=== PATIENT | male | born 1970 | race Caucasian/White ===

== ENCOUNTER 2018-11-03 15:03 | Inpatient (IN) ==
--- NOTE | 2018-11-03 16:02 | ED EKG INTERP ---
This chart was entered by Adrianne Scott Scribe, acting as scribe for Rena Romano MD. EKG Interpretation - EKG Time of EKG reading by physician:: 15:52 EKG Read and Signed by:: Rena Romano EKG Interpretation (*Must complete 3 of following elements*): Normal Rate: 71 Rhythm: nsr [place]: normal QRS: normal [place] Interval: normal ST Wave: normal Attestation - Physician/ JORDAN Attestation Patient care was provided by Advanced Practice Provider:: No The physician spent face to face time with patient:: Yes Advanced Practice Provider documentation review:: Supervising physician onsite and consulted in the evaluation and care of this patient. The physician did have a face to face encounter with the patient. This chart was documented by the indicated scribe, (Adrianne Scott Scribe) and accurately reflects the services I performed and decisions made by me, Rena Romano MD, as attested by the provider's signature.
[2018-11-03] MEDS ORDERED: NS 1,000 ML IV ONE (16:06)
[2018-11-03 16:37] LABS: BASO# 0.01 X1000 (0.0-0.2); HEMATOCRIT 29.2 % (42.0-52.0); HEMOGLOBIN 9.6 g/dL (14.0-18.0); IMM GRAN# 0.15 X1000 (0.0-0.04); IMM GRAN% 0.6 % (0.0-0.5); LYMPH# 0.75 X1000 (1.2-3.4); LYMPH% 2.9 % (20.5-51.1); MCH 28.7 PG (27-31); MCHC 32.9 g/dL (33-37); MCV 87.4 FL (81-99); MONO# 1.86 X1000 (0.11-0.59); MONO% 7.2 % (1.7-9.3); MPV 11.6 FL (7.4-10.4); NEUT# 23.06 X1000 (1.4-6.5); NEUT% 89.3 % (42.2-75.2); PLT 186 X1000 (130-400); RBC 3.34 XMIL (4.7-6.1); RDW 14.2 % (11.5-14.5); WBC 25.83 X1000 (4.8-10.8)
[2018-11-03 16:54] LABS: ALB/GLOB RATIO 0.9; ALBUMIN 2.9 g/dL (3.5-5.0); CALCIUM 8.1 mg/dL (8.8-10.2); CREATININE 6.5 mg/dL (0.7-1.2); POTASSIUM 4.1 mmol/L (3.5-5.1); TOTAL BILIRUBIN 0.39 mg/dL (0.20-1.00)
[2018-11-03] MEDS ORDERED: D50W SYRINGE IV PRN (17:07)
--- NOTE | 2018-11-03 17:09 | Diag Imaging Result Doc PS360 ---
EXAM: US SCROTUM HISTORY: testicular swelling and pain TECHNIQUE: Scrotal ultrasound COMPARISON: None. FINDINGS: There is marked scrotal skin thickening. Normal size and echotexture to each testicle. No testicular mass. There is symmetric blood flow. Neither epididymis is enlarged. There are tiny bilateral epididymal cysts. No large hydroceles. IMPRESSION: Prominent scrotal skin thickening. Tiny epididymal cysts. Electronically signed by Karl Baer 11/03/2018 5:07 PM
[2018-11-03] MEDS ORDERED: ROCEPHIN 1 GM in NS 50 ML IV SCH (17:30)
--- NOTE | 2018-11-03 17:56 | PROVIDER DOCUMENTATION ---
This chart was entered by Adrianne Scott Scribe, acting as scribe for Lion Tai MD. HPI-Abdominal Pain/GI Problem - General Chief Complaint: B/P Problems Stated Complaint: REFERRED BY DR. GARDNER Time Seen by Provider: 11/03/18 15:41 Source: patient, other (dr gardner) Allergies/Adverse Reactions: Patient Allergies Allergy/AdvReac Type Severity Reaction Status Date / Time No Known Allergies Allergy Verified 09/14/16 21:59 Home Medications: Home Medication List Medication Instructions Recorded Confirmed Last Taken Type Carvedilol [Coreg] 12.5 mg PO Q12HR #60 tablet 09/21/16 12/29/17 12/28/17 07:00 Rx Insulin Glargine [Lantus] 22 unit SUBQ QAM #0 insuln.pen 11/05/16 12/29/17 2 Weeks Ago Rx ~12/15/17 Levothyroxine [Synthroid] 50 microgm PO DAILY@0700 #30 tablet 11/05/16 12/29/17 12/28/17 07:00 Rx Losartan [Cozaar] 100 mg PO DAILY #0 tablet 11/05/16 12/29/17 12/28/17 07:00 Rx Sitagliptin [Januvia] 50 mg PO DAILY #30 tablet 11/05/16 12/29/17 12/28/17 07: 00 Rx Furosemide [Lasix] 80 mg PO DAILY #60 tablet 11/06/16 12/29/17 12/28/17 07:00 Rx - History of Present Illness-ABD Nature of Presenting Problems: 48 yom presents to the ed per dr gardner request to be admitted. pt has had low BP 96/39 and c/o dizziness, swollen testicles, n/v/d with abdominal cramping for last 4 days Abdominal Pain Onset Location: reports: suprapubic Pain Radiation: reports: no radiation Quality of Pain: reports: aching, cramping Severity in ED: reports: moderate Onset/Duration: reports: 4 days ago Timing: reports: still present, intermittent Activities at Onset: reports: light activity Exposure to sick contacts?: No Modifying Factors: improves with: nothing. worse with: palpation Associated Symptoms: reports: diarrhea, dizziness, fever/chills (99.2), nausea, vomiting. denies: back/neck pain, chest pain, shortness of breath Dark Stools Present?: reports: none noticed Rectal Bleeding: reports: none # of Diarrhea Episodes: 3 Rectal Pain: reports: none # of Vomiting Episodes: 5 Emesis Description: reports: other (food yellow) Bruising or Bleeding Gums?: No Similar Symptoms Previously?: Yes Recently seen or treated by another doctor?: Yes (dr gardner) Review of Systems - Adult - REVIEW OF SYSTEMS - ADULT Constitutional: reports: chills, fever (99.2) Eyes: reports: no symptoms reported Ears, Nose, Mouth & Throat: reports: no symptoms reported Cardiovascular: denies: chest pain, palpitations Respiratory: denies: cough, shortness of breath, wheezing Gastrointestinal: reports: see HPI, abdominal pain, diarrhea, nausea, poor appetite, vomiting Genitourinary: reports: no symptoms reported Musculoskeletal: denies: back pain, neck pain Integumentary: reports: no symptoms reported Neurological: reports: dizziness/vertigo. denies: ataxia, headache/migraines, loss of balance, numbness, paresthesia, seizure, slurred speech Psychiatric: reports: no symptoms reported Endocrine: reports: no symptoms reported Hematologic/Lymphatic: reports: no symptoms reported Allergic/Immunologic: reports: no symptoms reported All Other Systems: Reviewed and Negative Past History - Adult - PAST MEDICAL HISTORY-ADULT Review of Records: reports: Old Records Reviewed, Nursing Assessment Review, Medications Reviewed, Social history reviewed & non-contributory. Major Childhood Illnesses: reports: denies history Cardiovascular: reports: HTN, hyperlipidemia Respiratory: reports: sleep apnea Gastrointestinal: reports: GERD Obstetrical/Gynecological: reports: denies history Genitourinary: reports: kidney disease Musculoskeletal: reports: denies history Neurological: reports: denies history Endocrine/Immune: reports: Diabetes, thyroid disorder Diabetes Type: Type 2 Other Conditions: reports: denies history - PRIOR SURGERIES/PROCEDURES Surgical/Procedure History: reports: reviewed, not pertinent - IMMUNIZATION STATUS Childhood Immunizations: See Nurse Assessment Flu Vaccine: See Nurse Assessment - FAMILY HISTORY Family History: reviewed, not pertinent - SOCIAL HISTORY Smoking: denies Substance Use: denies Living Situation: family Physical Exam-General - PHYSICAL EXAM-ADULT Initial Vital Signs Reviewed: Yes - CONSTITUTIONAL General Appearance: appears well, alert, mild distress, obese - EYES Eyes: PERRL/EOMI, pink conjunctivae - HEAD, EARS, NOSE, MOUTH & THROAT HENMT: normocephalic/atraumatic, moist mucous membranes, normal ENT inspection - NECK Neck: non-tender, full range of motion, supple, normal inspection - RESPIRATORY Respiratory: chest non-tender, lungs clear, normal breath sounds - CARDIOVASCULAR Cardiovascular: normal peripheral pulses, regular rate, rhythm - CHEST (BREASTS) Chest/Breast: deferred - GASTROINTESTINAL (ABDOMEN) Abdominal Exam: normal bowel sounds, soft, tenderness (suprapubic) - GENITOURINARY Male Genitalia: scrotal swelling, testicular tenderness Rectal Exam: deferred Hemoccult Exam: deferred - LYMPHATIC Lymphatic: no adenopathy - MUSCULOSKELETAL Back Exam: normal inspection, no CVA tenderness, no vertebral tenderness Extremity: normal range of motion, no pedal edema, no calf tenderness, normal capillary refill, pelvis stable - SKIN Integumentary: normal color, normal turgor, warm/dry - NEUROLOGIC Neurologic: grossly normal, no motor/sensory deficits - PSYCHIATRIC Psych/Mental Status: normal mood/affect, normal thought content, normal thought process, oriented x 3 Progress - PLAN OF CARE/RESULTS Progress/Plan/Lab Results: Vital Signs - 8 hr 11/03/18 15:09 Temperature 99.2 F Pulse Rate 70 Respiratory Rate 18 Blood Pressure 96/39 O2 Sat by Pulse Oximetry 97 Orders Category Date Time Status US SCROTUM [US] Stat Exams 11/03/18 16:06 Ordered CBC WITH ELECTRONIC DIFF [HEME] Stat Lab 11/03/18 16:14 Ordered COMPREHENSIVE METABOLIC PANEL [CHEM] Stat Lab 11/03/18 16:14 Ordered URINALYSIS W/POSS RFLX CULT [URINALYSIS] Stat Lab 11/03/18 16:06 Uncollected 0.9% Sodium Chloride Inj [Ns] 1,000 ml Med 11/03/18 16:06 Active IV 999 mls/hr Result Diagrams: 11/03/18 15:45 11/03/18 15:45 - REASSESSMENT Reassessment #1 Time Reassessed: 17:27 ( at bedside) Status: unchanged - ULTRASOUND (By Radiology) 1 US Study: Scrotum (EXAM: US SCROTUM HISTORY: testicular swelling and pain TECHNIQUE: Scrotal ultrasound COMPARISON: None. FINDINGS: There is marked scrotal skin thickening. Normal size and echotexture to each testicle. No testicular mass. There is symmetric blood flow. Neither epididymis is enlarged. There are tiny bilateral epididymal cysts. No large hydroceles. IMPRESSION: Prominent scrotal skin thickening. Tiny epididymal cysts. Electronically signed by Karl Baer 11/03/2018 5:07 PM 11/03/181706 Interpreting Physician: Karl Baer MD Dictated Date/Time: 11/03/181705 cc: Lion Tai MD; Hubert Gardner MD) - CONSULTS/PCP/HOSPITALIST Notification #1 *Consult/PCP/Hospitalist*: Dr Gunn Time Discussed: 16:00 Consult Disposition: Admit Departure - Departure Date of Disposition Decision: 11/03/18 Time of Disposition Decision: 17:55 DIAGNOSIS: Nausea & vomiting Disposition: ADMITTED INPATIENT 09 Certified Medical Emergency: Emergent Condition: Good Additional Freetext Instructions: ED Follow Up Instructions: You have been treated by a care provider in the Emergency Department. These instructions are being provided to you so you can have an understanding of how to care for yourself upon discharge. Upon discharge from the Emergency Department, you are responsible for making arrangements for follow-up care by a physician of your choice. Take all prescribed medications as directed. Return to the Emergency Department immediately for any new or worsening symptoms. You may call the Physician Referral phone number at [phone] to obtain a list of Physicians who are taking new patients. Referrals and Follow-Ups: Hubert Gardner MD [Primary Care Provider] - - Critical Care Note This patient required my direct & personal management of CC.: No Attestation - Physician/ JORDAN Attestation Patient care was provided by Advanced Practice Provider:: No The physician spent face to face time with patient:: Yes Advanced Practice Provider documentation review:: Supervising physician onsite and consulted in the evaluation and care of this patient. The physician did have a face to face encounter with the patient. This chart was documented by the indicated scribe, (Adrianne Scott Scribe) and accurately reflects the services I performed and decisions made by me, Lion Tai MD, as attested by the provider's signature.
--- NOTE | 2018-11-03 18:09 | Diag Imaging Result Doc PS360 ---
EXAM: ABDOMEN FLAT/UPRIGHT HISTORY: diarrhea TECHNIQUE: Abdomen two views COMPARISON: 10/31/2016 FINDINGS: Large body habitus. No bowel obstruction. No organomegaly. No abnormal abdominal calcifications. There are degenerative spine changes. IMPRESSION: No acute abnormality. Electronically signed by Karl Baer 11/03/2018 6:06 PM
[2018-11-03 18:17] LABS: INR 1.33; PROTIME 17.5 Seconds (11.0-16.0)
[2018-11-03 18:18] LABS: PTT 33.4 Seconds (22.3-41.8)
[2018-11-03 18:36] LABS: AMYLASE 19 U/L (20-200); LIPASE 25 U/L (13-60)
--- NOTE | 2018-11-03 18:54 | Diag Imaging Result Doc PS360 ---
EXAM: CT ABDOMEN/PELVIS W/O CONTRAST HISTORY: diarrhea TECHNIQUE: CT abdomen and pelvis without contrast COMPARISON: 10/31/2016 FINDINGS: The liver is prominent and there is fatty infiltration. No calcified gallstones or adjacent inflammation. Normal spleen, pancreas, and adrenal glands. No renal stones. No hydronephrosis. No aortic aneurysm. Mildly prominent para-aortic pericaval nodes. Normal appendix. No abscess. No bowel obstruction. The urinary bladder is moderately distended and is normal. The prostate is not enlarged. There are bilateral pars defects to the L5 vertebra with subluxation of L5 on S1. IMPRESSION: 1. Liver prominent with fatty infiltration 2. Mildly prominent para-aortic and pericaval lymph nodes This exam was performed using automated exposure control, adjustment of mA or kV according to patient size, and/or use of iterative reconstruction technique. Electronically signed by Karl Baer 11/03/2018 6:52 PM
[2018-11-03 19:23] LABS: URINE SOURCE CATH
[2018-11-03 19:26] LABS: BILIRUBIN URINE NEGATIVE (NEGATIVE); BLOOD URINE TRACE (NEGATIVE); COLOR YELLOW; GLUCOSE URINE TRACE mg/dL (NEGATIVE); KETONE URINE NEGATIVE (NEGATIVE); LEUKOCYTES URINE NEGATIVE (NEGATIVE); NITRITE URINE NEGATIVE (NEGATIVE); PH URINE 5.5; PROTEIN URINE 300 mg/dL (NEGATIVE); SP GRAVITY URINE 1.017; TURBIDITY URINE TURBID (CLEAR); UROBILINOGEN URINE NORMAL (NORMAL)
[2018-11-03 19:27] LABS: UR EPITHELIAL CELLS <10 /HPF (<10); URINE BACTERIA NEGATIVE /HPF; URINE RBC <10 /HPF (<10); URINE WBC <10 /HPF (<10)
[2018-11-03] MEDS: NS 1,000 ML IV SCH (19:44)
[2018-11-03] MEDS: PROTONIX IV SCH (19:45)
[2018-11-03] MEDS: SODIUM CHLORIDE 0.9% INJ SCH (19:45)
[2018-11-03] MEDS: ZOSYN 2.25 GM in NS 50 ML IV SCH (19:45)
[2018-11-03] MEDS: FLAGYL 500 MG/NS 500 MG/100 ML IVPB IV SCH (19:45)
[2018-11-03] MEDS: COREG PO SCH (20:00)
--- NOTE | 2018-11-03 20:31 | HISTORY AND PHYSICAL ---
A 48-year-old white gentleman with multiple medical problems in the form of longstanding hypertension poorly controlled, diabetes mellitus, morbid obesity, sleep apnea, chronic kidney disease. The patient was not doing well since Friday complaining of pain in the lower abdomen, scrotal area. The patient also had diarrhea multiple times, stool was watery, occasional blood. Patient was also complaining of some nausea. He vomited twice today. Did have fever and some chills. Oral intake was poor. The patient came to office for evaluation. The patient was acutely ill when I saw him. His blood pressure was low normal. I decided to admit the patient for further care. As patient being acutely ill I sent him to ER for stabilization. The patient denied any dysuria. No gross hematuria. Complaining of pain in the perineum and scrotal area. Vague abdominal pain. No typical chest pain, palpitation, orthopnea or PND. Urine output was low. No unusual cough, expectoration or hemoptysis. No runny nose, stuffy nose, sinus drainage. Denied any heat or cold intolerance. Minimal swelling in the legs. No further history available at this time. ALLERGIES: No known drug allergy. HOME MEDICATIONS: Includes patient is on Coreg, Norvasc, Cozaar. I do not have updated list of his home medications. The patient is on insulin. PAST MEDICAL HISTORY: Longstanding hypertension, NIDDM, chronic kidney disease, morbid obesity, sleep apnea, osteoarthritis, hyperlipidemia, gastritis and reflux disease. PERSONAL HISTORY: Single. Used to smoke quit recently, denied alcohol or substance abuse. The patient does work in the school system. FAMILY HISTORY: Significant for father recently with esophageal cancer. Otherwise noncontributory. PHYSICAL EXAMINATION: GENERAL: Middle-aged white gentleman in mild distress. VITAL SIGNS: Blood pressure initial 1 was 96/39, pulse 70, temperature 99.2 degrees, respiration 18. SKIN: Normal turgor. HEENT: Head atraumatic, normocephalic. [place] conjunctivae. Anicteric sclerae. Extraocular muscle movement normal. Fundus cannot be penetrated. Good oral hygiene. Dry oral mucosa. No tonsillopharyngeal congestion or exudate. Ears and nose benign. NECK: Supple. No JVD, thyromegaly or lymphadenopathy. CHEST: Bilateral good air entry present. No rales or rhonchi. CARDIOVASCULAR: S1 and S2 heard, 2/6 systolic murmur at the apex. ABDOMEN: Soft, globular. Bowel sounds present. EXTREMITIES: No cyanosis, clubbing. Minimal swelling in the legs. Patient does have tenderness on the scrotum, some blackening at their scrotal skin. MAXILLOFACIAL PATHOLOGY: Alert, awake, answering questions fairly well. DATA: Abdominal x-ray no acute abnormality. Scrotal ultrasound, prominent skin thickening, tiny epididymal cyst. I did CT scan of the abdomen and pelvis without contrast. Official result is pending. LAB DATA: Revealed leukocytosis with left shift. PT/INR 1.33, PTT 33.4, sodium 133, BUN 140, creatinine 6.5. CONSIDERATION: 1. Patient admitted with gastroenteritis and leukocytosis. Patient does have evidence of infection at the scrotum. I was concerned about Yuriy gangrene. I am going to do urology consult. Discussed with Dr. Valentine. CT scan result is pending. 2. Acute on chronic kidney disease. 3. Gastritis and reflux disease. 4. Morbid obesity. 5. Diabetes mellitus. PLAN: Admit patient, gentle hydration, broad-spectrum antibiotics, monitor for hypoglycemia. Overall plan discussed with the patient and he is in agreement. cc: Hubert Swartz MD
[2018-11-03] MEDS: HUMALOG SUBQ SCH (23:01)
[2018-11-03] MEDS: TYLENOL PO PRN (23:01)
[2018-11-04 01:03] LABS: ALB/GLOB RATIO 1.3; ALBUMIN 2.8 g/dL (3.5-5.0); CALCIUM 7.3 mg/dL (8.8-10.2); CREATININE 6.9 mg/dL (0.7-1.2); POTASSIUM 3.8 mmol/L (3.5-5.1); TOTAL BILIRUBIN 0.34 mg/dL (0.20-1.00); TOTAL PROTEIN 4.9 g/dL (6.3-8.3)
[2018-11-04] MEDS ORDERED: CALMOSEPTINE OINTMENT TOP PRN (01:23)
[2018-11-04 01:33] LABS: CK INDEX 0.9 (0.0-2.5); CK-MB 3.18 ng/mL (0.0-5.0)
--- NOTE | 2018-11-04 03:23 | CONSULTATION ---
DATE OF CONSULTATION: 11/03/2018 ATTENDING AND REFERRING PHYSICIAN: Dr. Swartz. HISTORY OF PRESENT ILLNESS: This 48-year-old male states he started having scrotal and perineal area pain several days ago. He states it became worse today. He was seen by his family physician and sent to the emergency room for further evaluation. The patient states he may have had some fevers. He denies any voiding problems. He has no history of hematuria or kidney stones. He does have severe renal insufficiency secondary to diabetes. 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 The patient's creatinine is 6. A scrotal ultrasound revealed thickened scrotal skin but no abscess areas. A CT scan of the abdomen and pelvis looks like there is abscess area or gas in the right buttocks that tracks along the perineum to the posterior scrotum. PAST MEDICAL HISTORY: Diabetes type 2 (very poorly-controlled), hypertension, hypothyroidism, nephrotic syndrome. PAST SURGICAL HISTORY: Percutaneous renal biopsy, bronchoscopy with lung biopsy , tonsillectomy, possible wisdom teeth extraction. CURRENT MEDICATIONS: Documented on the chart and will include clindamycin and Zosyn. SOCIAL HISTORY: He dips snuff. He denies alcohol use. ALLERGIES: No known drug allergies. REVIEW OF SYSTEMS: He states usually he is in good health. He denies any problems with heart disease, strokes, or seizures. He has no voiding problems. PHYSICAL EXAMINATION: General: An obese, age apparent, normally developed, white male, who is cooperative. HEENT: Normal for age. Lungs: Clear. Cardiovascular: Regular rate and rhythm with grade 2-3/6 holosystolic murmur. Abdomen: Obese, soft, nontender. No hepatosplenomegaly or masses. Normal bowel sounds. : Uncircumcised male with penile and scrotal edema. There are no palpable abscesses but he is tender. The perineal area is tender as well, as well as the right buttock area. The left side is tender also. Extremities: There is +1 pitting edema. Neurologic: No focal deficits. LABORATORY EVALUATION: He has a white count of 25.8, hemoglobin of 9.6, hematocrit of 29.2. Serum electrolytes: He has a sodium of 133, a potassium of 4.1, chloride 93, bicarb 17, BUN 140, creatinine 6.5. Renal ultrasound and CT scan are as noted in the HPI. IMPRESSION: 1. Probable right buttock and perineal abscess that extends to the scrotum. 2. Multiple medical problems. RECOMMENDATIONS: 1. IV antibiotics of Zosyn and clindamycin. 2. Will keep NPO after midnight. 3. Will ask a general surgeon about the perianal area. 4. Will need incision,drainage and debridement of the abscess. cc: MD Hubert Lawrence MD MTDD
[2018-11-04] MEDS: ZOSYN 2.25 GM in NS 50 ML IV SCH ×4 (04:06→22:28)
[2018-11-04] MEDS: FLAGYL 500 MG/NS 500 MG/100 ML IVPB IV SCH (04:06)
[2018-11-04] MEDS: NS 1,000 ML IV SCH ×2 (04:08→06:00)
[2018-11-04 05:28] LABS: BASO# 0.01 X1000 (0.0-0.2); HEMATOCRIT 26.4 % (42.0-52.0); HEMOGLOBIN 8.5 g/dL (14.0-18.0); IMM GRAN# 0.13 X1000 (0.0-0.04); IMM GRAN% 0.5 % (0.0-0.5); LYMPH# 0.77 X1000 (1.2-3.4); LYMPH% 3.1 % (20.5-51.1); MCH 28.5 PG (27-31); MCHC 32.2 g/dL (33-37); MCV 88.6 FL (81-99); MONO# 2.47 X1000 (0.11-0.59); MONO% 9.9 % (1.7-9.3); MPV 11.4 FL (7.4-10.4); NEUT# 21.65 X1000 (1.4-6.5); NEUT% 86.5 % (42.2-75.2); PLT 174 X1000 (130-400); RBC 2.98 XMIL (4.7-6.1); RDW 14.5 % (11.5-14.5); WBC 25.03 X1000 (4.8-10.8)
[2018-11-04] MEDS: HUMALOG SUBQ SCH ×4 (06:00→21:26)
[2018-11-04] MEDS ORDERED: CLINDAMYCIN 600 MG/D5W 600 MG/50 ML IVPB IV SCH (06:30)
--- NOTE | 2018-11-04 06:48 | PROGRESS NOTE ---
DATE: 11/04/2018 SUBJECTIVE: A 48-year-old, white gentleman admitted with nausea, vomiting, and diarrhea. The patient was found to have infection in the perineum and also the scrotum. The patient is doing fairly well. The patient had low-grade fever. Blood pressure is low normal. He denied any chest pain. The patient is on IV fluid. Patient had leukocytosis. No more vomiting. Denied any diarrhea since admission. No typical chest pain or unusual cough or expectoration. No major hypoglycemic episode. OBJECTIVE: Vital Signs: His vital signs noted. Neck: Supple. No JVD. Lungs: Bibasilar crepitations. Heart: S1 and S2 heard. A 2-3/6 systolic murmur at the apex. Abdomen: Soft, globular. Bowel sounds present. Extremities: No cyanosis, clubbing. Minimal swelling. No acute DVT. STATIONARY ENGINEER APPRENTICE: Alert, awake. Able to move all 4 limbs. Laboratory Data: Done today, leukocytosis with a left shift. Lactate was 0.6. ASSESSMENT: Patient's problems include: 1. Perineal and scrotal infection. 2. Chronic kidney disease. 3. Hypertension but blood pressure is low-normal. 4. Insulin-dependent diabetes mellitus. PLAN: The patient's electrolytes are pending. Discussed patient's condition and plan with Dr. Valentine yesterday and Dr. Watson today. I am going to do stop Flagyl, start the patient on clindamycin. We will continue Zosyn. cc: Hubert Swartz MD
[2018-11-04 06:57] LABS: ALB/GLOB RATIO 0.8; ALBUMIN 2.5 g/dL (3.5-5.0); CALCIUM 7.6 mg/dL (8.8-10.2); CREATININE 6.9 mg/dL (0.7-1.2); POTASSIUM 4.1 mmol/L (3.5-5.1); TOTAL BILIRUBIN 0.33 mg/dL (0.20-1.00); TOTAL PROTEIN 5.6 g/dL (6.3-8.3)
[2018-11-04] MEDS: CLINDAMYCIN 600 MG/D5W 600 MG/50 ML IVPB IV SCH ×3 (07:14→22:29)
[2018-11-04 07:16] LABS: BANDS 6 % (0-1); LYMPHS 2 % (21-51); SEGS 92 % (42-75)
--- NOTE | 2018-11-04 07:16 | INFECTIOUS DISEASE CONSULT REP ---
DATE: 11/04/2018 CONCLUSION: The patient has Yuriy's gangrene of the scrotum. The infection may also involve the perineum. RECOMMENDATIONS: I agree with treating the patient with Zosyn. I have increased the dose to 2.25 g IV every 6 hours. I suggest adding clindamycin and daptomycin as well. The patient is scheduled to have surgery today, which I totally agree with. DISCUSSION: The patient tells me that for the past 3 days, he has had vomiting and diarrhea, fever, and chills. He also has dysuria and his scrotum has become very painful. He had difficulty passing his urine and a Sanchez catheter has been placed. Laboratory tests thus far show a CBC with a white count of 25,030, hemoglobin 8.5, and platelet count 174,000. Creatinine is 6.9. GFR is 9. Liver function studies are normal. Urinalysis showed no white cells or bacteria. A CT scan of the abdomen and pelvis showed a fatty liver and prominent periaortic and pericaval lymph nodes. A chest x-ray was taken this morning. I looked at it and I did not see any pneumonia but the radiologist has not officially read the x-ray. PAST MEDICAL HISTORY/REVIEW OF SYSTEMS: Eyes and Ears: The patient does not have any trouble hearing or seeing. Neck: No stiffness. Respiratory: No cough or shortness of breath. GI: See present illness. Genitourinary: See present illness. Endocrine: The patient is diabetic and he also has hypothyroidism. Bones, Joints, and Muscles: No swollen joints or muscle aches. Neurologic: No loss of motor function. Integument: See present illness. PREVIOUS HOSPITALIZATIONS AND OPERATIONS: He has been admitted before with pneumonia and also with diabetes and many of its complications. MEDICAL DISEASES: Positive for diabetes mellitus, hypertension, and hyperlipidemia. The patient has end-stage renal disease. INFECTIOUS DISEASE HISTORY: Positive for pneumonia. Negative for UTI. FAMILY HISTORY: Positive for diabetes mellitus, hypertension, myocardial infarction, and cancer. SOCIAL HISTORY: [place] He is single. He does not have any pets. He does not smoke cigarettes, drink alcoholic beverages, or abuse drugs. 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 HOME MEDICATIONS: Include the following: Amlodipine, Lipitor, carvedilol, furosemide, insulin, Synthroid, losartan, metolazone, and Januvia. PHYSICAL EXAMINATION: Vital Signs: Temperature is 98.2 degrees, pulse 66, respirations 18, blood pressure is 106/41. Patient weighs 273 pounds. General: This is a somewhat ill-appearing, middle-aged male. He does not appear to be in any acute distress. Head, Eyes, Ears, Nose, and Throat: He can hear my spoken words and see near objects. He does not have any drainage from his nose or ears. His tongue is dry but there are no white patches on it. Neck: No meningismus. Lungs: Clear to auscultation. Cardiovascular: Heart rate is regular. Abdomen: Soft and nontender. Pelvic Examination: The patient's scrotum is swollen, tender, and it is erythematous. At the bottom of the scrotum, there is gangrene present. I tried to see if the infection spread into the perineum but I was unable to determine if it did or did not. Neurologic: The patient is awake. He can move his extremities. He does not have a tremor. His sensation to touch was intact. His memory about his medical condition was decreased. Thank you for the consult. cc: MD Hubert Cobian MD
--- NOTE | 2018-11-04 07:24 | Diag Imaging Result Doc PS360 ---
EXAM: CHEST-PORTABLE INDICATION: sob TECHNIQUE: One view COMPARISON: 12/11/2016 FINDINGS: Inspiration is suboptimal. The lungs are grossly clear. There is no discrete pleural fluid collection or pneumothorax. The cardiac silhouette is prominent. Central vasculature is unremarkable. IMPRESSION: Prominent cardiac silhouette but no definite acute chest pathology, otherwise. Electronically signed by Yong Melendez 11/04/2018 7:22 AM
--- NOTE | 2018-11-04 07:36 | EKG Report ---
Test Performed on : 11/03/2018 3:52:00 PM Test Reason : CP Blood Pressure : / mmHG Vent. Rate : 071 BPM Atrial Rate : 071 BPM P-R Int : 182 ms QRS Dur : 106 ms QT Int : 404 ms P-R-T Axes : 038 026 085 degrees QTc Int : 439 ms Normal sinus rhythm. Normal ECG When compared with ECG of 03-NOV-2018 15:51, (Unconfirmed) No significant change was found Unconfirmed Result
[2018-11-04] MEDS: CUBICIN 750 MG in NS 100 ML IV SCH (08:20)
[2018-11-04] MEDS: COREG PO SCH ×2 (08:21→21:29)
[2018-11-04] MEDS ORDERED: NS 250 ML ONE (09:43)
[2018-11-04] MEDS ORDERED: XYLOCAINE 1%/EPI 1:100,000 ONE (09:43)
[2018-11-04] MEDS ORDERED: REGLAN ONE (09:44)
[2018-11-04] MEDS ORDERED: PEPCID ONE (09:44)
[2018-11-04] MEDS ORDERED: QUELICIN (DOSE) ONE (09:45)
[2018-11-04] MEDS ORDERED: XYLOCAINE-MPF 2% ONE ×2 (09:45→11:16)
[2018-11-04] MEDS ORDERED: DIPRIVAN 1% ONE (09:46)
[2018-11-04] MEDS ORDERED: AMIDATE ONE (10:08)
[2018-11-04] MEDS ORDERED: ROBINUL ONE ×3 (10:20→11:26)
[2018-11-04] MEDS ORDERED: EPHEDRINE ONE ×2 (10:24→12:16)
[2018-11-04] MEDS ORDERED: ZOSYN 2.25 GM in NS 50 ML IV SCH (10:30)
[2018-11-04] MEDS ORDERED: NORCURON ONE (10:31)
[2018-11-04] MEDS ORDERED: ATROPINE ONE ×2 (10:36→12:16)
[2018-11-04] MEDS ORDERED: PITRESSIN ONE (10:38)
[2018-11-04] MEDS ORDERED: OFIRMEV 1000 MG/ISOTONIC SOLN 1,000 MG/100 ML BOTTLE ONE (11:04)
[2018-11-04] MEDS ORDERED: MORPHINE ONE ×2 (11:06→13:47)
[2018-11-04] MEDS ORDERED: NEOSTIGMINE ONE (11:27)
[2018-11-04] MEDS ORDERED: DOPAMINE 800 MG/D5W 800 MG/500 ML IV.SOLN IV ONE (12:00)
[2018-11-04] MEDS ORDERED: EPINEPHRINE SYRINGE ONE ×2 (12:16→14:20)
--- NOTE | 2018-11-04 12:35 | Diag Imaging Result Doc PS360 ---
EXAM: CHEST-PORTABLE 11/04/2018 HISTORY: post op TECHNIQUE: AP portable at 1216 COMMENT: There is an endotracheal tube with its tip above the geovany. There is a double-lumen catheter on the right with its tip in the superior vena cava. There is platelike opacity in the left lower lobe which was not present on 11/04/2018 at 0503. IMPRESSION: Left lower lobe atelectasis. Electronically signed by Juan Ramon Trinidad 11/04/2018 12:32 PM
[2018-11-04 12:40] LABS: HEMATOCRIT 28.3 % (42.0-52.0); HEMOGLOBIN 8.8 g/dL (14.0-18.0); MCH 28.5 PG (27-31); MCHC 31.1 g/dL (33-37); MCV 91.6 FL (81-99); MPV 11.5 FL (7.4-10.4); RBC 3.09 XMIL (4.7-6.1); RDW 14.9 % (11.5-14.5); WBC 25.61 X1000 (4.8-10.8)
[2018-11-04 12:48] LABS: ALLEN TEST YES; BE -16.7 mmoll (-3.0-3.0); BLOOD TYPE ARTERIAL; METHB 0.8 % (0.0-1.5); O2(CT) 12.2 mL/dL (15.0-23.0); O2HB 94.3 % (95.0-99.0); PCO2(98.6) 43 mmHg (35-45); PO2(98.6) 84 mmHg (60-100); SAMPLE BLOOD; SAO2 96.7 % (95.0-100.0); SRATE 15 BPM; THB 9.1 g/dL (11.5-17.4); TVOL 600 mL
[2018-11-04 12:52] LABS: HCO3-(ACT) 11.9 mmoll (20.0-26.0); MODALITY VENTILATOR; pH(98.6) 7.07 (7.35-7.45)
[2018-11-04 12:56] LABS: CALCIUM 7.3 mg/dL (8.8-10.2); CREATININE 7.1 mg/dL (0.7-1.2); POTASSIUM 4.7 mmol/L (3.5-5.1)
[2018-11-04] MEDS ORDERED: SODIUM BICARBONATE 8.4% IV ONE (13:00)
--- NOTE | 2018-11-04 13:08 | NEPHROLOGY CONSULTATION ---
DATE: 11/04/2018 REASON FOR ADMISSION: Scrotal swelling with increased work of breathing. REASON FOR CONSULT: Acute kidney injury on chronic kidney disease stage 4-5. HISTORY OF PRESENT ILLNESS: Mr. Blakely is a 48-year-old white male who is known to our outpatient services for chronic kidney disease stage 4-5. Patient's baseline creatinine continues to be 3.39 to 4.5 over the last year. We have discussed previous hemodialysis options. The patient wants to return this month in regards to letting us know had to proceed for possible future dialysis. Unfortunately, he was seen on 10/05, creatinine at that time of 3.9. He presented to [facility] Emergency Department with nausea, vomiting, scrotal swelling, and increased lower extremity edema. His BUN was elevated at 136 with a creatinine of 6.9, decreased urinary output. The patient has scrotal and penile swelling. Sanchez catheter was placed. He has had minimal urine out in the last 24 hours of only 275 mL. He does deny chest pain. No increased work of breathing. Decreased appetite. No nausea, vomiting, or diarrhea. He does have perineal and scrotal pain, vague abdominal discomfort. No fever or chills. No hematochezia , hemoptysis, or hematuria. Increased lower extremity swelling, though he states that this has been larger in the past. PAST MEDICAL HISTORY: Chronic kidney disease stage 4-5, baseline creatinine 3.39 to 4.5 in the last year, hypertension, [id number] diabetes mellitus type 2, morbid obesity, sleep apnea, osteoarthritis, hyperlipidemia, gastritis, reflux disease, anemia of chronic disease, osteodystrophy of chronic disease. He also has a history of metabolic acidosis. SOCIAL HISTORY: He is single. He lives independently. He recently quit smoking. Denies any alcohol or substance abuse. 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 FAMILY HISTORY: Father of esophageal cancer. No renal disease mentioned. ALLERGIES: Listed as no known drug allergies. HOME MEDICATIONS: Coreg, Norvasc, Cozaar, Synthroid, amlodipine, vitamin D3, ezetimibe, furosemide, metolazone, Lipitor, Integra Plus, Lasix, Lantus, and Januvia. REVIEW OF SYSTEMS: Times 10 with pertinent positives listed above in the HPI. VITAL SIGNS: His most recent vital signs, temperature 98.2, blood pressure 106/ 41, heart rate 66, respirations 18. He is on room air. Last recorded saturation 98%. He has had 1,440 in, 275 mL to Sanchez catheter. LABS: Sodium 135, potassium 5.1, chloride 99, CO2 15, BUN is 126, with a creatinine of 6.9, glucose 143, anion gap of 21, calcium 7.6, albumin 2.5. White count 25.03, hemoglobin 8.5, hematocrit 26.4, platelet count 174,000. PHYSICAL EXAMINATION: General: This is a 48-year-old white male, currently resting in bed. He appears in moderate distress secondary to perineal pain and scrotal pain. HEENT : Normocephalic, atraumatic. Conjunctivae are pale pink. He has KRISTINA. Mucous membranes are moist. Neck: Supple. Trachea midline. No evidence of JVD in the upright position. Cardiovascular: He is regular rate and rhythm. He has a systolic murmur that is present. Lungs: Clear to auscultation anteriorly. Equal excursion. On room air. Abdomen: Large, obese, soft, nontender. Positive bowel sounds. Genitourinary: Sanchez catheter is in place. He does have scrotal sac swelling with malodorous odor. He has drainage from his penis, purulent in presentation. Rectal: Rectum not inspected. Extremities: He has trace to 1+ pretibial edema. Skin: Warm and dry. No clubbing or cyanosis present. Neurological: He is alert and oriented x3. ASSESSMENT AND PLAN: 1. Acute kidney injury on chronic kidney disease stage 4-5. We have had a discussion with the patient in regards with placement of dialysis tunnel catheter and to proceed with hemodialysis at this time. The patient states that he is in agreement. We will place him NPO this a.m. We will call on Dr. Colon for placement of dialysis tunnel catheter today with start of hemodialysis in the a.m. 2. Electrolytes, acid-base balance. These are fairly stable. 3. Anemia. This is low but stable. We will check for IV iron stores during this hospitalization. He was actually to be referred for IV iron infusions on his last visit in September. 4. Scrotal swelling with some necrotic area on his scrotum. Dr. Valentine has been consulted. To be followed by primary care and Urology. I would like to thank you for allowing us to follow with this patient. Dictated by JORGE Hirsch for Luis Vick MD Face to face encounter, data reviewed, discussed with Ana Nicholson on 11/04/17. I agree with the above assessment and plan of care. cc: JORGE Hirsch MD Bharat K. Vakharia, MD [facility]
[2018-11-04] MEDS ORDERED: SODIUM BICARBONATE 8.4% 50 MEQ in NS 1,000 ML IV SCH (13:15)
[2018-11-04] MEDS: MORPHINE ONE ×2 (14:05→14:16)
--- NOTE | 2018-11-04 14:06 | OPERATIVE NOTE ---
PROCEDURE DATE: 11/04/2018 DIAGNOSIS: Scrotum and perineum with subcutaneous air, likely anaerobic in origin. PROCEDURES: 1. Right subclavian Vas-Cath, tunneled. 2. Debride necrotic scrotum and perineum. DESCRIPTION OF PROCEDURE: The patient was brought to the operating room after satisfactory induction of IV and endotracheal anesthesia. Initially his right neck and chest were prepped and draped in the appropriate manner. In the midclavicular line, 1 fingerbreadth below, an area was infiltrated with Marcaine and epinephrine. A subcutaneous tunnel was likewise infiltrated with Marcaine. A transverse incision was made in the upper border of the infiltrated area. The subclavian vein was cannulated. A guidewire was introduced into the right atrial area of the heart. 6 or 8 cm distal to this, another stab wound was made and the tunneled catheter was threaded with a subcutaneous tunneler to the upper incision. Progressive dilations were performed and the catheter was slid down the superior vena cava/right atrial junction. It was flushed with heparinized saline. The upper incision underwent subcutaneous closure of 3-0 Vicryl, subcuticular 4-0 Vicryl. Exit was anchored with 0 silk and 3-0 nylon. It was flushed with heparinized saline. Fluoroscopy confirmed the position of the catheter. It flushed easily on completion. Attention was then taken to the perineum. He was placed in exenteration stirrups. His scrotum and perineum were prepped and draped in the appropriate manner. There was a large necrotic te-moak about 3 cm or 4 cm across at the base of the scrotum, at the border of the perineum. This was completely excised with drainage of serous foul-smelling fluid and a few bubbles. The incision was extended up to the base of the penis, revealing further necrosis in the scrotum itself. The Dartos fascia covering the testicles appeared to be satisfactory. The perineum was likewise infected. A Y-type incision was made on each side of the anus, revealing further necrosis down to skin and subcutaneous tissue. This was all debrided and there was very little bleeding. The wound was packed with Betadine-soaked Kerlix, ABDs and mesh underwear. He was subsequently awakened in the operating room, but experienced profound hypotension at this point, requiring re-intubation and initiation of pressors. The patient will remain on the ventilator and on dopamine drip, in a very guarded condition. He does have chronic renal failure and the plan was for dialysis tomorrow. Prognosis overall is not good at this point. cc: MD Hubert Mansfield MD
[2018-11-04] MEDS ORDERED: SODIUM BICARBONATE 8.4% ONE (14:20)
[2018-11-04] MEDS: DIPRIVAN 1% 1,000 MG/100 ML BOTTLE IV SCH ×3 (15:00→20:52)
[2018-11-04] MEDS: LEVOPHED 8 MG in D5 1/2 NS 250 ML IV SCH (15:05)
[2018-11-04 15:47] LABS: ALLEN TEST NO; BE -16.2 mmoll (-3.0-3.0); BLOOD TYPE ARTERIAL; HCO3-(ACT) 12.3 mmoll (20.0-26.0); METHB 0.8 % (0.0-1.5); O2(CT) 16.2 mL/dL (15.0-23.0); O2HB 97.4 % (95.0-99.0); PCO2(98.6) 36 mmHg (35-45); PO2(98.6) 148 mmHg (60-100); SAMPLE BLOOD; SAO2 99.3 % (95.0-100.0); SRATE 15 BPM; THB 11.6 g/dL (11.5-17.4); TVOL 700 mL
[2018-11-04 15:50] LABS: MODALITY VENTILATOR; pH(98.6) 7.13 (7.35-7.45)
[2018-11-04] MEDS ORDERED: SODIUM BICARBONATE 8.4% IV PUSH ONE (16:18)
--- NOTE | 2018-11-04 16:25 | CONSULTATION ---
DATE OF CONSULTATION: 11/04/2018 IMPRESSION: 1. Transient bradycardia observed perioperatively before patient got out of postoperative area. I suspect this very well may have been vagally mediated. No ECG strips are available and the patient is currently in normal sinus rhythm. 2. Status post debridement of necrotic scrotum and perineum for management of aggressive, progressive soft tissue infection with necrosis. This was performed under general anesthesia. 3. Acute on chronic kidney disease, stage 4 to 5. 4. Longstanding hypertension. 5. Diabetes mellitus. 6. Morbid obesity. 7. Obstructive sleep apnea. RECOMMENDATIONS: 1. Continue supportive care. 2. Continue intravenous dopamine for now. This will help support his heart rate. However, I do not feel that pacing will be needed. 3. Echocardiography. HISTORY: This is a 48-year-old white male with a past history of longstanding hypertension, diabetes mellitus, chronic kidney disease, morbid obesity and sleep apnea now status post debridement of perineum and scrotum for aggressive, progressive soft tissue infection with associated gangrene, under general anesthesia. In the immediate postoperative period, he demonstrated bradycardia with heart rate down to 20 beats per minute according to operating room staff. ECG strips not obtained. He has subsequently stabilized with pressors, including dopamine. He is presently on ventilator postoperatively. Cardiology was consulted because of bradycardia. There is no prior history of cardiac issues nor syncope. He is presently not able to give any history as he is intubated, on mechanical ventilator, and sedated. He was admitted yesterday with pain in the lower abdomen and scrotal area. He had some recent diarrhea and watery stools. He also had some fever and chills. He was found to have soft tissue infection in the perineum, which has progressed. 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 He was started on broad-spectrum antibiotics and anaerobic coverage as well. His soft tissue infection has progressed and he required debridement today under general anesthesia. PAST MEDICAL HISTORY: 1. Obesity. 2. Diabetes mellitus. 3. Longstanding hypertension. 4. Sleep apnea. 5. Chronic kidney disease, stage 4 to 5. 6. Osteoarthritis. 7. Hyperlipidemia. 8. Gastroesophageal reflux disease. ALLERGIES: He has no known drug allergies. MEDICATIONS PRIOR TO ADMISSION: As listed. It is noteworthy that he has been on Coreg, Norvasc and Cozaar. SOCIAL HISTORY: The patient is single and lives independently. He recently quit smoking. He does not use alcohol. Denies substance abuse. FAMILY HISTORY: Negative for premature coronary disease. REVIEW OF SYSTEMS: Not obtainable given patient intubated and on mechanical ventilator. PHYSICAL EXAMINATION: General: This is an obese, middle-aged male, intubated and sedated on mechanical ventilator. Vital Signs: Blood pressure 100/50, heart rate 70 and regular with ECG monitor showing sinus rhythm. HEENT: Extraocular muscles appear intact. Mucous membranes moist. Neck: Supple without jugular venous distention. Carotid bruits cannot be appreciated. Chest: Clear to auscultation. Cardiac Exam: Reveals a regular rate and rhythm without appreciable murmur, rub or gallop. Abdomen: Soft. Bowel sounds audible. Extremities: Without edema. LABORATORY DATA: Includes a white blood cell count of 25.61, hematocrit 28.3, hemoglobin 8.8, platelet count 180,000. Sodium 134, potassium 4.7, chloride 100, carbon dioxide 13, BUN 140, creatinine 7.1, glucose 316. Troponin T 0.131. DIAGNOSTIC STUDIES: A 12-lead EKG obtained on admission is not scanned into the electronic medical record. This is reported to demonstrate normal sinus rhythm and was within normal limits. cc: MD Hubert Powers MD
[2018-11-04] MEDS: SODIUM BICARBONATE 8.4% 150 MEQ in D5W 1,000 ML IV SCH (16:41)
[2018-11-04] MEDS: PROTONIX IV SCH (16:59)
[2018-11-04] MEDS: SODIUM CHLORIDE 0.9% INJ SCH (16:59)
--- NOTE | 2018-11-04 18:42 | PROGRESS NOTE ---
DATE: 11/04/2018 SUBJECTIVE: Mr. Blakely had debridement of necrotic tissue from his scrotum and perineal area. Immediately postoperative, the patient became severely hypotensive and bradycardic requiring intubation and pressure support. According to the nurses, the patient did not have cardiac arrest. Since then, the patient is on a ventilator and pressure support. The patient is doing fair. Cardiology printing specialist consult obtained. Nephrology is on board. The patient is on ventilator and sedated. His blood pressure is satisfactory with low-dose dopamine. No history of vomiting. Operative note reviewed. Cardiology consult noted. OBJECTIVE: Vital Signs: Noted. Neck: Supple. No JVD. Lungs: Decreased air entry both bases. Cardiovascular system: S1 and S2 heard. Abdomen: Soft, globular. Bowel sounds present. Extremities: Minimal swelling in the legs. Central nervous system: The patient is sedated, on the ventilator. LABORATORY DATA: The patient had leukocytosis. Blood gas reveals significant metabolic acidosis. Electrolyte results reviewed. I am going to discuss overall plan and prognosis with the family. ASSESSMENT: The patient's problems include: 1. Possible septic shock. 2. Diabetes mellitus. 3. Chronic kidney disease stage 4 and 5. 4. Longstanding diabetes mellitus. 5. Morbid obesity. Overall prognosis fair to guarded. Family is aware of the prognosis. cc: Hubert Swartz MD
[2018-11-04 22:25] LABS: UR CREAT RANDOM 204.7 mg/dL (14-26)
[2018-11-04 22:40] LABS: UR PROT RANDOM 394.4 mg/dL
[2018-11-05] MEDS: HUMALOG SUBQ SCH ×6 (00:25→21:08)
[2018-11-05] MEDS: DIPRIVAN 1% 1,000 MG/100 ML BOTTLE IV SCH ×6 (00:27→15:21)
[2018-11-05] MEDS: SODIUM BICARBONATE 8.4% 150 MEQ in D5W 1,000 ML IV SCH ×3 (00:27→15:17)
[2018-11-05] MEDS: ZOSYN 2.25 GM in NS 50 ML IV SCH ×4 (04:26→22:30)
[2018-11-05 04:30] LABS: ALLEN TEST YES; BE -5.5 mmoll (-3.0-3.0); BLOOD TYPE ARTERIAL; HCO3-(ACT) 20.7 mmoll (20.0-26.0); METHB 1.2 % (0.0-1.5); O2(CT) 11.8 mL/dL (15.0-23.0); O2HB 96.6 % (95.0-99.0); PCO2(98.6) 29 mmHg (35-45); PO2(98.6) 109 mmHg (60-100); SAMPLE BLOOD; SAO2 98.8 % (95.0-100.0); SRATE 15 BPM; THB 8.5 g/dL (11.5-17.4); TVOL 700 mL; pH(98.6) 7.41 (7.35-7.45)
[2018-11-05 04:32] LABS: MODALITY VENTILATOR
[2018-11-05 04:51] LABS: HEMOGLOBIN 7.9 g/dL (14.0-18.0); MCH 28.5 PG (27-31); MCHC 32.9 g/dL (33-37); MCV 86.6 FL (81-99); MPV 11.5 FL (7.4-10.4); RBC 2.77 XMIL (4.7-6.1); RDW 14.5 % (11.5-14.5); WBC 14.08 X1000 (4.8-10.8)
--- NOTE | 2018-11-05 04:53 | PULMONOLOGY CONSULTATION ---
DATE: 11/04/2018 REASON FOR CONSULTATION: Respiratory failure, hemodynamic shock, status post urgent debridement of a Yuriy's gangrene. HISTORY OF PRESENT ILLNESS: Mr. Blakely is a 48-year-old male with morbid obesity, long history of diabetes mellitus, with chronic kidney disease stage 4 to 5, who was seen in my clinic in 2017 when he developed nephrotic syndrome, along with pleural effusions. The patient lost weight and has nephrotic syndrome. The nephrotic syndrome eventually resolved, but he did go and develop progressive kidney disease. The patient developed lower abdominal pain associated with diarrhea and watery stools. He was evaluated by Urology, and was noted to have a perineal abscess which extended to the scrotum. He underwent an operative procedure for necrotic scrotum and perineum by Dr. Rojas earlier today. The patient's case was complicated by transient bradycardia. He was intubated and resuscitated. He clinically has improved hemodynamically, but remains on vasopressors. PAST MEDICAL HISTORY/PROBLEM LIST: 1. Morbid obesity, with a BMI greater than 40. 2. Diabetes mellitus. 3. Hypertension. 4. Chronic kidney disease, predialysis. 5. Sleep apnea. 6. Osteoarthritis. 7. Dyslipidemia. 8. Gastroesophageal reflux. SOCIAL HISTORY: Tobacco use unknown. Alcohol use unknown. The patient was documented as a never smoker in my clinic. FAMILY HISTORY: Negative for pertinent positives to this admission. REVIEW OF SYSTEM: Cannot be obtained. PHYSICAL EXAMINATION: General: Reveals an obese white male on mechanical ventilation. He is currently on Levophed and propofol for sedation. HEENT: Pupils are equal and reactive. Oropharynx is clear. Neck: Supple. Chest: Reveals distant breath sounds bilaterally. Cardiac: Distant heart sounds. Normal S1, normal S2. Abdomen: Obese and soft. Perineum: Reveals surgical dressings in place. Extremities: Cool to the touch. LABORATORIES: Arterial blood gas reveals a pH of 7.13, pCO2 of 36, PO2 of 148, with a normal lactate. Sodium 134, potassium 4.7, chloride 100, bicarbonate 13, BUN 140, creatinine. 7.1. Chest x-ray reveals endotracheal tube and double-lumen catheter in position, with platelike atelectasis in the left base. IMPRESSION: A 48-year-old with morbid obesity, acute hypoxemic respiratory failure, acute-on- chronic renal failure, hemodynamic shock status post debridement of a Yuriy's gangrene. RECOMMENDATIONS: 1. Continue full ventilatory support. We will continue Levophed unless the patient develops additional bradycardia, at which point he will be switched back to dopamine. 2. Initiate bicarbonate drip. The patient's low bicarbonate level is likely due to his renal failure. He does not have significant lactic acidosis, and did not have significant ketones on presentation. 3. Evaluate for extubation tomorrow morning. 4. Continue broad-spectrum antibiotics, per Dr. Erlin Watson. 5. Initiate SCDs for deep vein thrombosis this evening, with initiation of Lovenox reduced-dose for renal failure tomorrow. 6. Routine gastric acid suppression. 7. Additional recommendations pending hospital course. TIME SPENT IN CRITICAL CARE: One hour. cc: MD Hubert Jimenez MD
[2018-11-05 05:32] LABS: ALB/GLOB RATIO 0.8; ALBUMIN 2.2 g/dL (3.5-5.0); CALCIUM 7.1 mg/dL (8.8-10.2); CREATININE 7.1 mg/dL (0.7-1.2); PHOSPHORUS 8.9 mg/dL (2.7-4.5); POTASSIUM 3.1 mmol/L (3.5-5.1); TOTAL BILIRUBIN 0.38 mg/dL (0.20-1.00); TOTAL PROTEIN 5.1 g/dL (6.3-8.3)
[2018-11-05] MEDS: CLINDAMYCIN 600 MG/D5W 600 MG/50 ML IVPB IV SCH ×2 (06:24→14:07)
[2018-11-05] MEDS ORDERED: NS 2,000 ML MISC PRN (06:36)
--- NOTE | 2018-11-05 07:13 | PROGRESS NOTE ---
DATE: 11/05/2018 SUBJECTIVELY: Mr. Blakely is doing fair. The patient is on vent. Blood pressure doing better. Blood culture grew gram-positive cocci, preliminary report. The patient is still on pressure support. Urine output was around 100 mL. The patient admitted with abdominal pain, some diarrhea. The patient also found to have a gluteal abscess extending into the scrotum requiring significant debridement of necrotic tissue. The patient did have a bradyarrhythmia, hypotension requiring intubation. OBJECTIVE: Vital signs: Blood pressure 116/60, pulse 58, respirations 15, temperature 97.2 degrees. Neck: Supple. No JVD. Lungs: Decreased air entry both bases. CVS: S1 and S2 heard. Abdomen: Globular, distended. Bowel sounds present. The patient is obese. Extremities: No cyanosis, clubbing. No acute DVT. JUNIOR SOFTWARE DEVELOPER: Patient is on vent and sedated. Wound: I cannot comment about his wound. LABORATORIES: CBC today: WBC count 14.08, hemoglobin 7.9, hematocrit 24, platelet count 159,000. Blood gas: pH 7.41, pCO2 29, pO2 109. Sodium 136, potassium 3.1, chloride 95, CO2 was 17, BUN 138, creatinine 3.1. Plasma lactate was 0.6. The patient's chest x-ray result done yesterday noted. Patient also had a dialysis catheter inserted yesterday. ASSESSMENT: 1. The patient does have multiple medical problems, including sepsis, abscess in the perineum. 2. Chronic kidney disease. 3. Diabetes mellitus. 4. Hypertension. 5. Morbid obesity. 6. Hyperlipidemia. PLAN: The patient is on broad-spectrum antibiotics which will continue. The patient is being followed up by a multiple specialities. I discussed patient's prognosis and plan with his brother yesterday at length. OVERALL PROGNOSIS: Fair to guarded. They are aware of prognosis. cc: Hubert Swartz MD
--- NOTE | 2018-11-05 07:19 | Diag Imaging Result Doc PS360 ---
EXAM: CHEST-PORTABLE 11/05/2018 HISTORY: Post op TECHNIQUE: AP portable at 0503 COMMENT: There is an endotracheal tube with its tip just above the geovany. The inspiration is somewhat suboptimal. There is some improvement in the atelectasis which was seen in the left mid and lower lung field. Otherwise there has been no significant change since 11/04/2018. IMPRESSION: Improved atelectasis versus pneumonia. Electronically signed by Juan Ramon Trinidad 11/05/2018 7:16 AM
--- NOTE | 2018-11-05 07:24 | EKG Report ---
Test Performed on : 11/04/2018 3:27:05 PM Test Reason : bradycardia Blood Pressure : / mmHG Vent. Rate : 067 BPM Atrial Rate : 067 BPM P-R Int : 180 ms QRS Dur : 108 ms QT Int : 428 ms P-R-T Axes : 039 -30 089 degrees QTc Int : 452 ms Normal sinus rhythm. Left axis deviation Abnormal ECG When compared with ECG of 03-NOV-2018 15:52, (Unconfirmed) T wave amplitude has increased in Inferior leads Confirmed by Micheal WASHINGTON, Jaydon Thurman ([id number]) on 11/05/2018 7:25:08 PM
--- NOTE | 2018-11-05 07:24 | EKG Report ---
Test Performed on : 11/05/2018 07:10:41 AM Test Reason : bradycardia Blood Pressure : / mmHG Vent. Rate : 058 BPM Atrial Rate : 058 BPM P-R Int : 184 ms QRS Dur : 116 ms QT Int : 486 ms P-R-T Axes : 028 023 067 degrees QTc Int : 477 ms Sinus bradycardia. Incomplete left bundle branch block Borderline ECG When compared with ECG of 04-NOV-2018 15:27, (Unconfirmed) T wave amplitude has decreased in Inferior leads Confirmed by Micheal WASHINGTON, Jaydon Thurman ([id number]) on 11/05/2018 7:36:49 PM
[2018-11-05] MEDS: LOVENOX SUBQ SCH (07:56)
[2018-11-05] MEDS: COREG PO SCH ×2 (08:14→21:08)
--- NOTE | 2018-11-05 08:50 | Diag Imaging Result Doc PS360 ---
EXAM: CHEST-PORTABLE 11/05/2018 HISTORY: NGT placement TECHNIQUE: AP chest and abdomen for NG tube placement COMMENT: The NG tube tip is in the body of the stomach. The stomach is somewhat distended with gas. IMPRESSION: NG tube in the stomach. Electronically signed by Juan Ramon Trinidad 11/05/2018 8:48 AM
[2018-11-05] MEDS ORDERED: STERILE WATER INJ. INJ ONE (09:39)
[2018-11-05] MEDS: LEVOPHED 8 MG in D5 1/2 NS 250 ML IV SCH (09:39)
[2018-11-05] MEDS ORDERED: CATHFLO IV ONE (09:39)
--- NOTE | 2018-11-05 13:48 | ECHO REPORT ---
ORDER DATE: 11/05/2018 INTERPRETING PHYSICIAN: Dr. Ori Gaming. ECHOCARDIOGRAPHIC MEASUREMENTS: 1. Interventricular septum 1.6 cm. 2. Left ventricular posterior wall 1.6 cm. 3. Diastolic diameter 4.7 cm. 4. Left atrium 4.2 cm. 5. Aorta 3.5 cm. SUMMARY OF THE 2-DIMENSIONAL IMAGIN. Technically suboptimal study. Poor acoustic window. 2. Definity was used to assess left ventricular systolic function. Normal left ventricular cavity size. Concentric left ventricular hypertrophy. Estimated ejection fraction of 65%. 3. The aortic valve leaflets are trileaflet. Mitral valve was normal. Tricuspid valve was normal. Pulmonic valve not well visualized. 4. By Doppler studies, there is no aortic stenosis or regurgitation. There is mild mitral regurgitation. 5. Mild tricuspid regurgitation. Peak velocity across the tricuspid valve was 2.8 m/sec. Pulmonary artery systolic pressure of 41 mmHg. 6. There is no pericardial effusion or obvious intracardiac mass or thrombus. cc: MD Maya Up PA Bharat K. Vakharia, MD
--- NOTE | 2018-11-05 14:00 | NEPHROLOGY PROGRESS NOTE ---
DATE: 11/05/2018 TIME SEEN: 0640 hours. SUBJECTIVE: Mr. Blakely remains ventilator dependent. He is sedated. He appears in no acute distress. OBJECTIVE: His most recent vital signs: Temperature 97.2 degrees, blood pressure 118/63, heart rate 58, his respirations are 14. The patient is currently on 70% ventilator FiO2. His last recorded saturations are 94%. He has had 4945 in and 135 mL out to Sanchez catheter. LABORATORY DATA: Sodium 136, potassium 3.1, chloride 95, CO2 17. BUN 138, creatinine 7.1, glucose 187. Anion gap is 24 calcium 7.1, phosphorus 8.9, albumin 2.2. White count 14.08, hemoglobin 7.9, hematocrit 24, platelet count 159. ABGs: The pH 7.41, CO2 29, PO2 109, bicarbonate 20.7. Lactic acid of 0.9 on 70% FiO2. PHYSICAL EXAMINATION: General: This is a 48-year-old white male. He is currently resting in bed. He is ventilator dependent. He is sedated. HEENT: Normocephalic, atraumatic. Conjunctiva is pale pink. He has sluggish pupils. Mucous membranes are dry. Oral ET tube is in place. Neck: Supple. He has positive JVD. Cardiovascular: He is regular rate and rhythm. He is sinus jada on the monitor registering in the 50s. No murmur or gallop appreciated. Lungs: Clear to auscultation anteriorly. Equal excursion. Ventilator support. Abdomen: Tight. Hypo bowel sounds present. Genitourinary: Not inspected. He has dressing that is dry and in place. Swelling is visible. Extremities: He continues with 2+ to 3+ edema from lower extremities up into the mid hip scrotal sac area. Integumentary: Again scrotal sac is not inspected with dressing dry and intact. Neurological: As mentioned above. ASSESSMENT AND PLAN: 1. Chronic kidney disease stage 5 D. The patient's baseline creatinine has been running 3.9 to 4.6. Creatinine today is 7.1 with a BUN of 138. Patient had a tunnel catheter placed to the right chest wall yesterday afternoon per Dr. Colon. We have planned for dialysis today. We will place him on slow, low efficiency dialysis. He is to be on a 4 potassium bath. He is to dialyze for 8 hours. We will attempt to pull 4 to 6 liters of ultrafiltration as tolerated with low flow we will hold heparin while on dialysis today. 2. Electrolytes. Patient has hypokalemia again with plan for correction on dialysis. 3. Acidosis. The patient currently has a CO2 of 17 with an anion gap of 24. He is currently on a sodium bicarbonate drip. We will plan to possibly remove this tomorrow on dialysis with correction. 4. Anemia. Patient's hemoglobin is 7.9, status post surgery date postop 1. We will continue to monitor and evaluate. It is noted in our office that patient was already iron deficient. Dr. Colon would prefer that we transfuse 1 unit of packed red blood cells today. 5. Yuriy gangrene. The patient was taken to surgery yesterday evening for debridement per Dr. Colon, again status postop day #1. The patient is on renal-dosed antibiotics. I would like to thank you for allowing us to follow with this patient. Poor catheter function delayed treatment. He received 2 hours HD. SLED tomorrow. rg Dictated by JORGE Hirsch for Luis Vick MD Face to face encounter, data reviewed, discussed with Ana Nicholson on 11/05/18. I agree with the above assessment and plan of care. rg cc: JORGE Hirsch MD Bharat K. Vakharia, MD [facility]
[2018-11-05] MEDS ORDERED: DIPRIVAN 1% 500 MG/50 ML BOTTLE ONE (15:38)
[2018-11-05] MEDS ORDERED: NS 250 ML ONE (15:57)
[2018-11-05] MEDS: SODIUM CHLORIDE 0.9% INJ SCH ×2 (19:32→19:47)
[2018-11-05] MEDS: PROTONIX IV SCH (19:47)
[2018-11-06] MEDS: DIPRIVAN 1% 1,000 MG/100 ML BOTTLE IV SCH ×8 (00:15→21:42)
[2018-11-06] MEDS: SODIUM BICARBONATE 8.4% 150 MEQ in D5W 1,000 ML IV SCH ×2 (00:15→08:29)
[2018-11-06] MEDS: CLINDAMYCIN 600 MG/D5W 600 MG/50 ML IVPB IV SCH ×4 (00:15→23:55)
[2018-11-06] MEDS: HUMALOG SUBQ SCH ×7 (00:43→23:55)
[2018-11-06 04:44] LABS: ALLEN TEST YES; BE 4.8 mmoll (-3.0-3.0); BLOOD TYPE ARTERIAL; HCO3-(ACT) 28.7 mmoll (20.0-26.0); METHB 0.8 % (0.0-1.5); O2(CT) 12.6 mL/dL (15.0-23.0); O2HB 96.3 % (95.0-99.0); PCO2(98.6) 33 mmHg (35-45); PO2(98.6) 86 mmHg (60-100); SAMPLE BLOOD; SAO2 98.9 % (95.0-100.0); SRATE 15 BPM; THB 9.2 g/dL (11.5-17.4); TVOL 650 mL; pH(98.6) 7.53 (7.35-7.45)
[2018-11-06 04:45] LABS: MODALITY VENTILATOR
[2018-11-06] MEDS: ZOSYN 2.25 GM in NS 50 ML IV SCH ×4 (04:47→21:42)
[2018-11-06 05:46] LABS: HEMATOCRIT 26.1 % (42.0-52.0); HEMOGLOBIN 8.9 g/dL (14.0-18.0); MCH 29.1 PG (27-31); MCHC 34.1 g/dL (33-37); MCV 85.3 FL (81-99); MPV 11.9 FL (7.4-10.4); RBC 3.06 XMIL (4.7-6.1); RDW 14.9 % (11.5-14.5); WBC 14.28 X1000 (4.8-10.8)
[2018-11-06] MEDS: CUBICIN 750 MG in NS 100 ML IV SCH (06:06)
[2018-11-06 06:31] LABS: ALB/GLOB RATIO 0.7; ALBUMIN 2.1 g/dL (3.5-5.0); CREATININE 4.6 mg/dL (0.7-1.2); PHOSPHORUS 5.9 mg/dL (2.7-4.5); POTASSIUM 3.2 mmol/L (3.5-5.1); TOTAL BILIRUBIN 0.53 mg/dL (0.20-1.00)
[2018-11-06] MEDS ORDERED: NS 2,000 ML MISC PRN ×2 (06:32→07:42)
[2018-11-06 06:33] LABS: CALCIUM 6.5 mg/dL (8.8-10.2)
--- NOTE | 2018-11-06 06:52 | OPERATIVE NOTE ---
PROCEDURE DATE: 11/05/2018 SURGEON: Daquan Colon MD. PREOPERATIVE DIAGNOSIS: Nonfunctioning right tunnel Vas-Cath. PROCEDURE: 1. Attempted left subclavian and internal jugular, and right internal jugular Vas-Cath without success. 2. Subsequent placement right femoral vein Vas-Cath for hemodialysis. PROCEDURE IN DETAIL: The patient was brought to the operating room. After satisfactory prepping and draping, he is already on a ventilator on pressors. His left neck and chest and right neck and chest were prepped and draped in the appropriate manner. Initially, a subclavian vein was accessed through an infraclavicular incision. A guidewire was attempted at the introduction; however, it threaded either up the IJ or out the subclavian. It did not thread down to the superior vena cava. Attempts were then tried [*through] the incision over the left internal jugular. Again, the vein was accessed on multiple occasions; however, the wire would not thread. Attempts were then tried on the right side through an IJ access. But again, the vein was cannulated, but the wire would not thread. Multiple attempts were performed with 3 different positions. On completion of this, the right groin was prepped and draped in the appropriate manner. The femoral artery was palpated and with Doppler guidance, the femoral vein was accessed. Guidewire was introduced up superiorly without difficulty and a straight Vas-Cath was threaded. It was flushed with heparinized saline, sewed in with 0 silk and anchored with silk. The patient was subsequently transferred back to intensive care after stapling up the upper neck and shoulder incisions. The previous Vas-Cath was removed and direct pressure was held until the oozing discontinued. He remains in guarded condition on pressors and a ventilator. He will be dialyzed tonight. The plan is to return to surgery on 11/06 for further debridement of his scrotum and perineum. There may be a requirement of a fecal diversion this weekend to take away any further contamination in his perineum. cc: MD Hubert Mansfield MD MTDD
--- NOTE | 2018-11-06 07:09 | PROGRESS NOTE ---
DATE: 11/06/2018 SUBJECTIVE: Mr. Blakely is doing fair. The patient is still on ventilator for respiratory failure. The patient is also off his pressure support. Blood pressure is maintaining fair. Original Vas- cath was not working for dialysis. Patient had another Vas-Cath placed in his groin. The patient received dialysis last night about 2 L of fluid drained out. His. The patient remained afebrile. No vomiting or diarrhea. OBJECTIVE: His vital signs noted blood pressure 98/54, pulse 59, respirations 15, and temperature was normal. The lungs with decreased air entry both bases. CVS: S1 and S2. Bradycardia. A 2- 3/6 systolic murmur at the apex. Abdomen: Soft, globular. Bowel sounds present. No acute DVT clinically. HEALTH DIRECTOR: The patient is sedated. Uncooperative for detailed exam. LABORATORY DATA: Lab data did reveal leukocytosis though it is improved. WBC count 14.28. Hemoglobin 8.9, hematocrit 26.1, and platelet count 147,000. The patient received 2 units of packed RBC yesterday. Blood gas done today shows pH 7.53, pCO2 33, PO2 86. This was done on a vent. Electrolytes: Potassium was 3.2, BUN 80, and creatinine 4.6. Calcium was 6.5. Albumin was 2.1. CONSIDERATION: 1. Patient admitted with perineal and scrotal abscess status post incision, drainage and debridement. Possible sepsis. One of the blood cultures preliminary report Gram stain showed gram-positive cocci. 2. Acute on chronic kidney disease. 3. Diabetes mellitus. 4. Respiratory failure. 5. Morbid obesity. Patient's lab data noted. Overall prognosis fair to guarded. The patient is going to have dialysis again today. According to the nurses, surgeon is going to consider possible incision and drainage, and debridement again today. I had lengthy discussion about the patient's condition with his brother Fco from [place] today. cc: Hubert Swartz MD
[2018-11-06] MEDS ORDERED: TIGHT: 0.2 ML/HR FOR DIALYSIS MISC PRN (07:42)
[2018-11-06] MEDS ORDERED: HEPARIN IV PRN (07:42)
[2018-11-06] MEDS: LOVENOX SUBQ SCH (08:29)
[2018-11-06] MEDS: COREG PO SCH ×2 (08:29→21:42)
[2018-11-06] MEDS ORDERED: FENTANYL ONE (10:26)
[2018-11-06] MEDS ORDERED: DIPRIVAN 1% ONE (10:26)
--- NOTE | 2018-11-06 10:30 | PULMONOLOGY PROGRESS NOTE ---
DATE: 11/05/2018 SUBJECTIVE: The patient is sedated. He did move with transient interruption of his sedation vacation. He remains on Levophed, but this has been tapered since last evening. OBJECTIVE: Vital signs: Blood pressure 123/68, heart rate 62, respiratory rate 15, oxygen saturation 92%. HEENT: Pupils are equal and reactive. Oropharynx is clear. Neck: Supple. Chest: Reveals distant breath sounds bilaterally with occasional rhonchi. Cardiac: Regular rate. Normal S1, normal S2. Abdomen: Obese and soft. Extremities: Reveal some weeping from the surgical sites. LABORATORIES: Arterial blood gas reveals a pH 7.41, pCO2 of 69, pO2 of 109 on FiO2 70%, and PEEP of 700. White blood count 14.08, hemoglobin 7.9, platelet count 159,000. Sodium 136, potassium 3.1, chloride 95, bicarbonate 17, anion gap 24, BUN 138, creatinine 7.1, glucose 187. IMPRESSION: A 48-year-old with morbid obesity, diabetes mellitus, Yuriy gangrene status post debridement, hemodynamic shock, acute hypoxemic respiratory failure, and acute on chronic renal failure. His acidosis has improved along with marginal improvement in hemodynamics. After discussion with the nurse, it is anticipated that he will return to the operating room tomorrow morning for re-evaluation and additional debridement of the gangrenous area. RECOMMENDATIONS: 1. Continue full ventilatory support. 2. Wean Levophed as tolerated. 3. Continue bicarbonate drip until serum bicarbonate has risen to greater than 20 or as dictated by Nephrology. 4. Continue broad-spectrum antibiotics. 5. Initiate Lovenox today along with SCDs. 6. Continue gastric acid suppression. 7. Patient's prognosis is guarded. TIME SPENT CRITICAL CARE: 30+ minutes. cc: MD Hubert Jimenez MD
--- NOTE | 2018-11-06 10:32 | Diag Imaging Result Doc PS360 ---
EXAM: CHEST-PORTABLE HISTORY: PNA TECHNIQUE: Single view COMPARISON: 11/05/2018 FINDINGS: Endotracheal tube in good position. The lungs are poorly expanded. No cardiomegaly. There are bilateral infiltrates. No consolidation. No pleural effusions identified. Nasogastric tube overlies the esophagus and stomach. IMPRESSION: No significant change. Electronically signed by Karl Baer 11/06/2018 10:30 AM
--- NOTE | 2018-11-06 10:44 | NEPHROLOGY PROGRESS NOTE ---
DATE: 11/06/2018 SUBJECTIVE: He is sedated, intubated on the ventilator. OBJECTIVE: Vital Signs: Blood pressure 100/56, heart rate 60, respiration 18, afebrile. Intake. 5 L; output 4.7 L. General: On physical examination, no acute distress. Sedated as above. Skin: Warm and dry. Wounds are dressed. HEENT: Conjunctivae are pink. Pupils are equal. Oropharynx is dry. Neck: Neck veins are not appreciated. Heart: Regular, tachycardic. Lungs: Equal, clear. Abdomen: Obese, soft, nontender. Bowel sounds are present. Extremities: Have 2+ edema. No clubbing or cyanosis. IMPRESSION: 1. Chronic kidney disease stage 5 D. Hemodialysis again today. A 3-1/2 hour treatment with a goal of 4 L ultrafiltration. A 3 potassium bath. 2. Electrolytes otherwise acceptable. 3. Acid base, improved. cc: MD Hubert Worthington MD
[2018-11-06] MEDS: LEVOPHED 8 MG in D5 1/2 NS 250 ML IV SCH (11:54)
--- NOTE | 2018-11-06 15:59 | PULMONOLOGY PROGRESS NOTE ---
DATE: 11/06/2018 INTERIM HISTORY: Patient was taken back to the operating room for a second evaluation and debridement. The patient quickly became hypotensive and shocky with vascular decompensation. The procedure was aborted, and the patient was brought back to the Intensive Care Unit. OBJECTIVE: Levophed has been re-initiated. Blood pressure 99/72. Heart rate 70 , respiratory rate 18, oxygen saturation 94%. HEENT: Pupils are equal and reactive. Oropharynx is clear with endotracheal tube in place. Neck is supple. Chest reveals good air entry bilaterally without wheezing or rhonchi. Cardiac exam S1- S2. Abdomen is obese and soft. Extremities are unchanged. LABORATORIES: Chest x-ray reveals shallow expansion with bilateral infiltrates and unchanged from 11/05/2018. Arterial blood gas reveals a pH 7.53, pCO2 of 33, PO2 of 86. Sodium 139, potassium 3.2, chloride 95, bicarbonate 26. BUN 80. Creatinine 4.6. Total protein 5.0. Albumin 2.1. White blood count 14.3. Hemoglobin 8.9. Platelet count 147,000. IMPRESSION: A 48-year-old with 1. Morbid obesity. 2. Diabetes mellitus. 3. Yuriy's gangrene. 4. Status post debridement. 5. Hemodynamic shock. 6. Acute hypoxemic respiratory failure. 7. [id number]-[id number] renal failure. 8. Gram-positive bacteremia. He was too unstable for a second debridement, and this will be delayed over the weekend. RECOMMENDATION: 1. Discontinue bicarbonate drip. The patient has developed alkalemia. 2. Attempt tube feedings. 3. Initiate Clinimix. 4. Continue antibiotics per Infectious Disease. 5. Continue mechanical ventilation for respiratory failure. 6. Continue vasopressors for hypotension. 7. Prognosis is guarded. Time spent in critical care management: 30+ minutes cc: MD Hubert Jimenez MD MTDD
[2018-11-06] MEDS: SODIUM CHLORIDE 0.9% INJ SCH (17:26)
[2018-11-06] MEDS: PROTONIX IV SCH (17:26)
--- NOTE | 2018-11-07 00:16 | INFECTIOUS DISEASE PROGRESS NO ---
DATE: 11/06/2018 PRESENT ILLNESS: The patient has Yuriy gangrene. He is status post surgery for the condition. MEDICATIONS: The patient is on a combination of Zosyn, daptomycin, and clindamycin. PHYSICAL EXAMINATION: Vital Signs: Temperature is 98 degrees, pulse 73, respirations 18, blood pressure 121/58. General: This is an ill-appearing, middle-aged male. He is intubated and sedated. Head, eyes, ears, nose, and throat: As mentioned above, the patient is intubated and sedated. He does not respond to verbal stimuli. There is no drainage from the nose or the ears. Neck: No meningismus. Lungs: Clear to auscultation. Cardiovascular: Regular heart rate. Abdomen: Soft and nontender. In the right groin, there is a catheter for dialysis present. Neurologic: The patient is obtunded. He does not respond to verbal stimuli. There is no tremor. LABORATORY AND X-RAY: The patient's CBC shows a white count of 14,280, hemoglobin 8.9, and platelet count 147,000. Creatinine is 4.6. GFR is 14. Liver function studies are normal. Blood gases show a pH of 7.53, a pO2 of 86, and a pCO2 of 33. Urine, sputum, and scrotal cultures are all negative. Clostridium difficile toxin is negative. One out of 2 blood cultures is positive for a gram-positive coccus. This could be a pathogen such as Staph aureus or could represent a contaminant such as Staph epidermidis. ASSESSMENT AND PLAN: I plan to continue the patient's current antibiotic treatment. The patient has Yuriy gangrene. COMORBIDITIES: He is obese. He also has diabetes mellitus and end-stage renal disease. cc: MD Hubert Cobian MD
[2018-11-07] MEDS: HUMALOG SUBQ SCH ×5 (03:45→20:01)
[2018-11-07] MEDS: DIPRIVAN 1% 1,000 MG/100 ML BOTTLE IV SCH ×7 (03:50→23:31)
[2018-11-07] MEDS: ZOSYN 2.25 GM in NS 50 ML IV SCH ×4 (03:50→22:54)
[2018-11-07 05:04] LABS: ALLEN TEST YES; BE 5.5 mmoll (-3.0-3.0); BLOOD TYPE ARTERIAL; HCO3-(ACT) 29.2 mmoll (20.0-26.0); METHB 1.3 % (0.0-1.5); O2(CT) 14.7 mL/dL (15.0-23.0); O2HB 93.7 % (95.0-99.0); PCO2(98.6) 36 mmHg (35-45); PO2(98.6) 72 mmHg (60-100); SAMPLE BLOOD; SAO2 96.4 % (95.0-100.0); SRATE 18 BPM; THB 11.1 g/dL (11.5-17.4); TVOL 600 mL; pH(98.6) 7.51 (7.35-7.45)
[2018-11-07 05:24] LABS: MODALITY VENTILATOR
[2018-11-07] MEDS: CLINDAMYCIN 600 MG/D5W 600 MG/50 ML IVPB IV SCH ×3 (06:33→22:54)
[2018-11-07 06:54] LABS: HEMATOCRIT 27.4 % (42.0-52.0); MCH 28.8 PG (27-31); MCHC 32.8 g/dL (33-37); MCV 87.5 FL (81-99); MPV 11.7 FL (7.4-10.4); RBC 3.13 XMIL (4.7-6.1); WBC 16.73 X1000 (4.8-10.8)
[2018-11-07 07:22] LABS: ALB/GLOB RATIO 0.7; CREATININE 3.2 mg/dL (0.7-1.2); POTASSIUM 3.3 mmol/L (3.5-5.1); TOTAL BILIRUBIN 0.77 mg/dL (0.20-1.00)
[2018-11-07] MEDS: LOVENOX SUBQ SCH (07:43)
[2018-11-07 08:04] LABS: CALCIUM 6.9 mg/dL (8.8-10.2)
[2018-11-07] MEDS: COREG PO SCH ×2 (09:39→20:49)
[2018-11-07] MEDS ORDERED: MORPHINE IV PRN (10:12)
[2018-11-07] MEDS: MORPHINE IV PRN ×2 (10:36→15:32)
[2018-11-07] MEDS ORDERED: NS 2,000 ML MISC PRN (10:42)
--- NOTE | 2018-11-07 14:32 | PROGRESS NOTE ---
DATE: 11/07/2018 SUBJECTIVE: Patient in the ICU on mechanical ventilation. He is a patient of Dr. Swartz and I am seeing him in and Dr. Swartz's place this weekend. Patient is still receiving dialysis right now. Still on triple antibiotic ointment for the Yuriy gangrene and plans for future debridement next week are noted. OBJECTIVE: T-max 100 degrees, pulse 63, respirations 16, blood pressure 101/48. Patient being off of pressor agents. He is tolerating NG feeds at this time. I's and O's 3575 in, 450 out. Last BM documented 2 days ago. LABS: Sodium 137, potassium 3.3, chloride 95, CO2 25, BUN 40, creatinine 3.2, calcium 6.9, phosphorus 4.0, total bilirubin 0.77, AST 17, ALT 26, alkaline phosphatase 101, total protein 5.0, albumin 2.0, white count 16.7, hemoglobin 9, platelets 176,000. ABG on ventilator this morning pH 7.51, pCO2 36, pO2 72, HC03 29, O2 saturation 96.4 that is on 60% FiO2. ASSESSMENT: 1. Yuriy gangrene, severe. 2. Respiratory failure on mechanical ventilation. 3. Hypotension improved slightly now off pressor agents. 4. Renal failure on hemodialysis per Dr. Vcik. 5. Morbid obesity. 6. Insulin-dependent diabetes mellitus. PLAN: Patient remains on clindamycin, daptomycin and Zosyn. He is receiving NG feeds, hemodialysis and surgical debridement when required. He is on Lovenox and IV Protonix for prophylaxis of DVT and peptic ulcer disease. cc: MD Hubert Maya MD
--- NOTE | 2018-11-07 16:09 | NEPHROLOGY PROGRESS NOTE ---
DATE: 11/07/2018 SUBJECTIVE: He remains sedated on the ventilator. OBJECTIVE: Vital Signs: Blood pressure 125/60, heart rate 62, respiration 18, afebrile. Intake 3.6 L; output 4.5 L. General: On physical exam sedated and unresponsive. Skin: Warm and dry. Eyes: Conjunctivae are pink. Neck: Neck veins are distended. Heart: Regular with a gallop. Lungs: Equal. No crackles or wheezes. Abdomen: Soft. Minimal bowel sounds, but present. Extremities: Have 2+ edema. No clubbing or cyanosis. IMPRESSION: Acute kidney injury, overlying chronic kidney disease. Likely end-stage at this point. Slow, low efficiency dialysis today. A 4 potassium bath, 27 bicarbonate and a goal of 4 to 6 L ultrafiltration. cc: MD Hubert Worthington MD
--- NOTE | 2018-11-07 16:41 | PULMONOLOGY PROGRESS NOTE ---
DATE: 11/07/2018 SUBJECTIVE: The patient is sedated but appears comfortable. His vasopressors are currently on hold. OBJECTIVE: The patient has been afebrile for the last 24 hours with maximum temperature 100 degrees, BP 125/60, heart rate 62, respiratory rate 18, oxygen saturation 95%. HEENT: Pupils are equal and reactive. Oropharynx is clear. Neck: Supple. Chest: Reveals shallow breath sounds bilaterally. Cardiac: Regular rate. Normal S1, normal S2. Abdomen: Obese and soft. Extremities: Are warm to the touch. LABORATORIES: White blood count 16.7, hemoglobin 9.0, platelet count 176,000. Sodium 137, potassium 3.3, chloride 95, bicarbonate 25, BUN 40, creatinine 3.2, albumin 2.0. Arterial blood gas, pH 7.51, PCO2 36, PO2 of 72 with a normal lactate. IMPRESSION: A 48-year-old with Yuriy gangrene, morbid obesity with protein calorie malnutrition which is severe, diabetes mellitus, acute hypoxemic respiratory failure, acute on chronic renal failure, status post failed attempt at debridement on Friday due to hemodynamic compromise. Clinically patient appears to be stabilizing. RECOMMENDATIONS: 1. Continue full ventilatory support through the weekend with anticipation of a repeat attempt to debride on Friday. 2. Continue antibiotics per Infectious Disease. 3. Continue tube feeds. Will increase as tolerated. 4. Hemodialysis as per recommendations of the nephrology service. 5. Overall prognosis is guarded. Time spent critical care: 30+ minutes cc: MD Hubert Jimenez MD MTDVero
[2018-11-07] MEDS: PROTONIX IV SCH (18:06)
[2018-11-07] MEDS: SODIUM CHLORIDE 0.9% INJ SCH (18:06)
[2018-11-07] MEDS: CUBICIN 750 MG in NS 100 ML IV SCH (20:48)
[2018-11-08] MEDS: HUMALOG SUBQ SCH ×6 (00:10→20:25)
[2018-11-08] MEDS: DIPRIVAN 1% 1,000 MG/100 ML BOTTLE IV SCH ×9 (02:22→22:28)
[2018-11-08 04:28] LABS: ALLEN TEST YES; BE -1.4 mmoll (-3.0-3.0); BLOOD TYPE ARTERIAL; HCO3-(ACT) 23.8 mmoll (20.0-26.0); METHB 1.6 % (0.0-1.5); O2HB 95.8 % (95.0-99.0); PCO2(98.6) 33 mmHg (35-45); PO2(98.6) 82 mmHg (60-100); SAMPLE BLOOD; SRATE 12 BPM; THB 8.8 g/dL (11.5-17.4); TVOL 600 mL; pH(98.6) 7.44 (7.35-7.45)
[2018-11-08 04:31] LABS: MODALITY VENTILATOR
[2018-11-08] MEDS: ZOSYN 2.25 GM in NS 50 ML IV SCH ×4 (04:33→22:26)
[2018-11-08 05:58] LABS: ALB/GLOB RATIO 0.7; ALBUMIN 2.3 g/dL (3.5-5.0); CALCIUM 7.5 mg/dL (8.8-10.2); CREATININE 2.6 mg/dL (0.7-1.2); PHOSPHORUS 4.1 mg/dL (2.7-4.5); POTASSIUM 4.4 mmol/L (3.5-5.1); TOTAL BILIRUBIN 0.88 mg/dL (0.20-1.00); TOTAL PROTEIN 5.5 g/dL (6.3-8.3)
[2018-11-08] MEDS: CLINDAMYCIN 600 MG/D5W 600 MG/50 ML IVPB IV SCH ×3 (06:16→22:30)
[2018-11-08] MEDS: LOVENOX SUBQ SCH (07:53)
[2018-11-08] MEDS: COREG PO SCH ×2 (08:02→20:25)
[2018-11-08 09:11] LABS: HEPATITIS PROFILE ACUTE SEE COMMENTS
[2018-11-08] MEDS ORDERED: DIPRIVAN 1% ONE (10:20)
--- NOTE | 2018-11-08 11:31 | Diag Imaging Result Doc PS360 ---
CHEST-PORTABLE - 11/08/2018 INDICATION: intubated COMPARISON: 11/06/2018 FINDINGS: Stable endotracheal tube and nasogastric tube in good position. Lung volumes are critically low. There is cardiomegaly and pulmonary vascular congestion. There are some ill-defined edema or atelectasis in the lung bases. IMPRESSION: No change from prior. Electronically signed by Eduin Dia 11/08/2018 11:28 AM
[2018-11-08] MEDS: TYLENOL PO PRN (11:58)
--- NOTE | 2018-11-08 12:59 | PROGRESS NOTE ---
DATE: 11/08/2018 SUBJECTIVE: Patient remains on ventilatory support in the ICU per Dr. Newman. OBJECTIVE: Vitals: Temperature maximum 99.1 degrees, pulse 63, respirations 18, blood pressure 124/60 off of all pressor agents. CARDIOVASCULAR: Regular rhythm and rate with murmur. Lungs: Fairly clear. Abdomen: Soft, nondistended. Extremities: No major edema. LABORATORIES: Sodium 140, potassium 4.4, chloride 103, CO2 22, BUN 25, creatinine 2.6, blood sugars in the 100s. Calcium 7.5, phosphorus 4.1, alkaline phosphatase 132, total protein 5.5, albumin 2.3. Sputum, no growth. ASSESSMENT: 1. Yuriy's gangrene, groin area. 2. Respiratory failure on mechanical ventilation per Dr. Newman. 3. Renal failure on hemodialysis per Dr. Vick. 4. Morbid obesity. 5. Insulin-dependent diabetes mellitus. PLAN: Patient remains on triple antibiotic treatment with clindamycin, daptomycin, Zosyn. He is on NG feeds. Surgical debridement likely again tomorrow. He is on Lovenox and Protonix and receiving SSI for blood sugar control. Continue supportive measures. cc: MD Hubert Maya MD
--- NOTE | 2018-11-08 13:35 | PULMONOLOGY PROGRESS NOTE ---
DATE: 11/08/2018 SUBJECTIVE: Patient is sedated. He appears comfortable on mechanical ventilation. He has been afebrile for the last 24 hours. He is currently on no vasopressors. OBJECTIVE: Vital signs: Blood pressure 91/37, heart rate 60, respiratory rate 14, oxygen saturation 94%. HEENT: Pupils are equal and reactive. Oropharynx appears clear. Neck: Is supple. Chest: Reveals good air entry bilaterally with occasional rhonchi. Cardiac: S1-S2. Abdomen: Obese and soft with rare positive bowel sounds. Extremities: Reveal trace edema. LABORATORIES: Chest x-ray is pending. Sodium 140, potassium 4.4, chloride 103, bicarbonate 22, BUN 25, creatinine 2.6, albumin 2.3. IMPRESSION: A 48-year-old with Yuriy's gangrene, morbid obesity, protein calorie malnutrition which is severe, diabetes mellitus, acute hypoxemic respiratory failure, acute on chronic renal failure. The patient was taken back to the operating room on Friday for a 2nd debridement, which was aborted due to hypotension. He has remained stable over the last 36 to 48 hours. RECOMMENDATIONS: 1. Continue full ventilatory support. 2. Continue tube feeds for protein calorie malnutrition. 3. Hemodialysis, as per the recommendations of Nephrology Service. 4. Anticipate a 2nd attempt at debridement tomorrow morning. 5. Prognosis guarded. TIME SPENT FOR CRITICAL CARE: 30+ minutes. cc: MD Hubert Jimenez MD
[2018-11-08] MEDS: SODIUM CHLORIDE 0.9% INJ SCH (17:44)
[2018-11-08] MEDS: PROTONIX IV SCH (17:44)
[2018-11-09] MEDS: HUMALOG SUBQ SCH ×7 (00:38→23:26)
[2018-11-09] MEDS: DIPRIVAN 1% 1,000 MG/100 ML BOTTLE IV SCH ×8 (02:02→21:14)
[2018-11-09] MEDS: ZOSYN 2.25 GM in NS 50 ML IV SCH ×4 (03:47→23:03)
[2018-11-09 04:38] LABS: ALLEN TEST YES; BE -5.4 mmoll (-3.0-3.0); BLOOD TYPE ARTERIAL; HCO3-(ACT) 20.7 mmoll (20.0-26.0); METHB 1.2 % (0.0-1.5); O2(CT) 12.3 mL/dL (15.0-23.0); O2HB 93.6 % (95.0-99.0); PCO2(98.6) 42 mmHg (35-45); PO2(98.6) 71 mmHg (60-100); SAMPLE BLOOD; SAO2 96.2 % (95.0-100.0); SRATE 10 BPM; THB 9.3 g/dL (11.5-17.4); TVOL 600 mL
[2018-11-09 04:40] LABS: MODALITY VENTILATOR
[2018-11-09 06:27] LABS: BASO# 0.03 X1000 (0.0-0.2); BASO% 0.1 % (0.0-0.8); EOS# 0.48 X1000 (0.0-0.7); EOS% 2.2 % (0.0-10.0); HEMATOCRIT 28.5 % (42.0-52.0); HEMOGLOBIN 8.8 g/dL (14.0-18.0); LYMPH# 1.44 X1000 (1.2-3.4); LYMPH% 6.6 % (20.5-51.1); MCH 28.9 PG (27-31); MCHC 30.9 g/dL (33-37); MCV 93.8 FL (81-99); MONO# 2.18 X1000 (0.11-0.59); MONO% 10.1 % (1.7-9.3); MPV 11.2 FL (7.4-10.4); NEUT# 17.56 X1000 (1.4-6.5); PLT 208 X1000 (130-400); RBC 3.04 XMIL (4.7-6.1); RDW 15.8 % (11.5-14.5); WBC 21.69 X1000 (4.8-10.8)
[2018-11-09 06:30] LABS: ALB/GLOB RATIO 0.7; ALBUMIN 2.2 g/dL (3.5-5.0); CALCIUM 7.4 mg/dL (8.8-10.2); CREATININE 3.7 mg/dL (0.7-1.2); PHOSPHORUS 5.8 mg/dL (2.7-4.5); POTASSIUM 4.8 mmol/L (3.5-5.1); TOTAL BILIRUBIN 1.01 mg/dL (0.20-1.00); TOTAL PROTEIN 5.5 g/dL (6.3-8.3)
[2018-11-09] MEDS: CLINDAMYCIN 600 MG/D5W 600 MG/50 ML IVPB IV SCH ×3 (06:39→23:04)
--- NOTE | 2018-11-09 06:47 | Diag Imaging Result Doc PS360 ---
EXAM: CHEST-PORTABLE HISTORY: respiratory failure TECHNIQUE: Portable chest COMPARISON: 11/08/2018 FINDINGS: No change in the endotracheal tube. There are skin eladio overlying the lower neck and lower chest. The lungs are poorly expanded. There are bilateral infiltrates. The heart is mildly prominent. IMPRESSION: No interval improvement. Electronically signed by Karl Baer 11/09/2018 6:45 AM
--- NOTE | 2018-11-09 07:00 | PROGRESS NOTE ---
DATE: 11/09/2018 SUBJECTIVE: Mr. Blakely is doing fairly well. His blood pressure is stable. The patient had a large bowel movement this morning. No high-grade fever. Temperature prop and scenery maker was 99. The patient is scheduled to have debridement of his wound today. The patient is still on ventilator, not able to give any history. History gotten from the nurse taking care of the patient. OBJECTIVE: Lungs: Decreased air entry, both bases. CVS: S1 and S2 heard. Abdomen: Soft, globular. Bowel sounds hypoactive. Extremities: No cyanosis, clubbing. No acute DVT. AIRCRAFT ENGINE TECHNICIAN: The patient is on ventilator and sedated. LABORATORY DATA: CBC done today did reveal leukocytosis, hemoglobin 8.8, hematocrit 28.5. Blood gas: PH 7.3, pCO2 of 42, PO2 was 71. This was done on ventilator. BUN was 34, creatinine 3.7. The patient is scheduled to have dialysis today. ASSESSMENT: 1. The patient had abscess in the groin and perineum, status post debridement. The patient is needing another one today. 2. The patient was on nasogastric tube feeding yesterday. Residual volume was high, and nasogastric tube feeding is on hold. 3. Acute on chronic kidney disease, on hemodialysis. 4. Sepsis. 5. Status post respiratory arrest, on ventilator. 6. Patient's aerobic culture from the scrotal wound was positive for Bacteroides. 7. Longstanding diabetes mellitus, poorly controlled. 8. Morbid obesity. The patient is acutely ill. Overall prognosis is fair to guarded. Family is aware. Will continue broad-spectrum antibiotics and supportive care. cc: Hubert Swartz MD
[2018-11-09] MEDS ORDERED: DIPRIVAN 1% ONE (07:29)
[2018-11-09] MEDS ORDERED: HYDROGEN PEROXIDE SOLUTION ONE (07:58)
[2018-11-09] MEDS: LOVENOX SUBQ SCH (08:49)
[2018-11-09] MEDS: COREG PO SCH ×2 (08:49→21:15)
[2018-11-09] MEDS ORDERED: VERSED ONE (09:05)
[2018-11-09] MEDS ORDERED: TYLENOL ONE (09:20)
[2018-11-09] MEDS: LEVOPHED 8 MG in D5 1/2 NS 250 ML IV SCH (10:07)
--- NOTE | 2018-11-09 10:48 | NEPHROLOGY PROGRESS NOTE ---
DATE: 11/09/2018 SUBJECTIVE: The patient remains sedated and mechanically ventilated. He is scheduled to go to surgery for further debridement today. VITAL SIGNS: Temperature 99 degrees, pulse 63, respiratory rate 20, blood pressure 129/57. Intake 1.8 L. Output 65 mL via Sanchez catheter. PHYSICAL EXAMINATION: General: This is a middle-aged gentleman, currently sedated, mechanically ventilated. HEENT: Normocephalic, atraumatic. His pupils are pinpoint. Oral mucosa appears dry. He is orally intubated. Neck: Supple. Positive JVD. Cardiovascular: Regular rate and rhythm. Positive gallop. Pulmonary: He has rhonchi bilaterally, but no wheeze. He is mechanically ventilated. Abdomen: Soft, obese. Positive bowel sounds. : He has a Sanchez catheter. Extremities: He has 3+ edema up to the hips. Integumentary: Skin is warm and dry. LAB DATA: WBC of 21.6, hemoglobin 8.8. Sodium 135, potassium 4.8, CO2 18, creatinine 3.7. Albumin 2.2. ASSESSMENT AND PLAN: 1. Acute overlying chronic kidney disease, likely end-stage at this point. We are continuing with SLED at this point in time, secondary to fluid volume, along with his hypotension. The patient continues on pressor support. This may limit our fluid removal today. However, we will still plan for a UF of 2 to 3 L. We will hold orders until he comes back from surgery and we can evaluate his status at that time. 2. Electrolytes, acid-base balance. See above for plan. 3. Yuriy's gangrene, followed by Infectious Disease, on appropriately-dosed antibiotics. Dictated by JORGE Orr for Luis Vick MD Face to face encounter, data reviewed, discussed with Abel Baez on 11/09/18. I agree with the above assessment and plan of care. cc: MD Hubert Worthington MD [facility]
--- NOTE | 2018-11-09 11:28 | OPERATIVE NOTE ---
PROCEDURE DATE: 11/09/2018 SURGEON: Daquan Colon MD. PREOPERATIVE DIAGNOSIS: Gangrene of the scrotum and perineum with Bacteroides. PROCEDURE: Debridement. PROCEDURE IN DETAIL: He is brought to the operating room. He was already intubated. He was placed in the exenteration stirrups. The scrotum and perineum had been previously opened with debridement of necrotic tissue. It was prepped and draped. More necrotic tissue around the edges was sharply debrided. There was some bleeding and viable tissue encountered. The patient remains quite ill. Tylenol suppository was given. The right groin Vas-Cath was subsequently re-gloved, and had a fresh bandage placed to it. Betadine-soaked Kerlix was placed in the in the wound as well as ABDs in new mesh panties. He was subsequently transferred back to the intensive care unit in guarded condition. ESTIMATED BLOOD LOSS: About 20 mL. cc: MD Hubert Mansfield MD
--- NOTE | 2018-11-09 12:23 | INFECTIOUS DISEASE PROGRESS NO ---
DATE: 11/09/2018 PRESENT ILLNESS: The patient has Yuriy's gangrene. He has just returned from surgery today performed by Dr. Colon. The patient's white count is increasing. Also, he is continuing to have fever, and I am concerned that the patient may have developed a superinfection. MEDICATIONS: The patient is on a combination of IV clindamycin, daptomycin, and Zosyn. PHYSICAL EXAMINATION: Vital Signs: Temperature maximum was 101, now it is 99; pulse 63, respirations 20, blood pressure 129/57. General: This is an ill-appearing middle-aged male. He is intubated and sedated. Head, Eyes, Ears, Nose, and Throat: The patient has an orotracheal tube in place. There is no drainage from the nose or ears. Neck: No stiffness. Lungs: Clear to auscultation. Cardiovascular: Regular heart rate. Abdomen: Soft and bowel sounds present. Pelvic: The patient has just returned from surgery and I am unable to examine the surgical area at this time. Extremities: The patient has leg edema, but no erythema. Neurologic: The patient is sedated. He does not respond to verbal stimuli. ADDENDUM AND RADIOLOGY: See my dictation done later in the day on this patient. ASSESSMENT AND PLAN: The patient has Yuriy's gangrene. My plan is to continue the current antibiotics and obtain blood urine and sputum cultures and also a CK to check for rhabdomyolysis secondary to daptomycin. COMORBIDITIES: He is obese. He also has diabetes mellitus and end-stage renal disease. cc: MD Hubert Cobian MD MTDD
[2018-11-09] MEDS ORDERED: NS 2,000 ML MISC PRN (12:42)
--- NOTE | 2018-11-09 13:05 | PULMONOLOGY PROGRESS NOTE ---
DATE: 11/09/2018 SUBJECTIVE: The patient has returned from debridement this morning. He required increased FiO2 and brief vasopressors following his surgery. He has not been tolerating his tube feeds. OBJECTIVE: Vital signs: Blood pressure 136/64, heart rate 60, respiratory rate 12, oxygen saturation 96%. HEENT: Pupils are equal and reactive. Oropharynx is clear. Neck: Supple. Chest: Reveals coarse rhonchi bilaterally. Cardiac: S1, S2. Abdomen: Obese and soft. Extremities: Reveal 1+ peripheral edema. Skin: Postoperative surgical dressings are in place. LABORATORIES: White blood count 21.6 thousand, hemoglobin 8.8, platelet count 208,000. Chemistry: Sodium 135, potassium 4.8, chloride 99, bicarbonate 18, BUN 34, creatinine 3.7. Arterial blood gas, pH 7.30, pCO2 of 42, PO2 of 71. Chest x-ray reveals diffuse bilateral infiltrates with borderline cardiac size. IMPRESSION: This is a 48-year-old with Yuriy's gangrene, morbid obesity, protein calorie malnutrition, bilateral pneumonia likely related to acute respiratory distress syndrome, diabetes mellitus, acute hypoxemic respiratory failure, acute on chronic renal failure. He is scheduled to go back to the operating room in 2 days. He has failed attempts at tube feeds yesterday afternoon. RECOMMENDATIONS: 1. Continue full ventilatory support. 2. We will initiate Clinimix as a protein bridge pending re-attempt at tube feeds. 3. Fluid management per the Nephrology Service. 4. Prognosis remains guarded. CRITICAL CARE TIME: Time spent in critical care, 30+ minutes. cc: MD Hubert Jimenez MD
--- NOTE | 2018-11-09 13:41 | INFECTIOUS DISEASE PROGRESS NO ---
DATE: 11/09/2018 ADDENDUM REPORT LAB AND X-RAY: There is no new radiographic study. Laboratory studies show a CBC with a white count of 21,690, hemoglobin 8.8, and platelet count of 208,000. Patient's blood gases show a pH of 7.30, a pO2 of 71, and a pCO2 of 42. The patient's creatinine is 3.7. The GFR is 18. The patient's alkaline phosphatase is 143, and the AST is 75. The patient had a hepatitis panel drawn, and it was all nonreactive. cc: MD Hubert Cobian MD
[2018-11-09] MEDS: CLINIMIX E 4.25%-5% SOLUTION 1,000 ML IV SCH (15:42)
[2018-11-09] MEDS: PROTONIX IV SCH (18:38)
[2018-11-09] MEDS: SODIUM CHLORIDE 0.9% INJ SCH (18:39)
[2018-11-09] MEDS: CUBICIN 750 MG in NS 100 ML IV SCH (21:15)
[2018-11-10] MEDS: DIPRIVAN 1% 1,000 MG/100 ML BOTTLE IV SCH ×8 (00:23→23:40)
[2018-11-10 04:27] LABS: ALLEN TEST YES; BE -4.8 mmoll (-3.0-3.0); BLOOD TYPE ARTERIAL; HCO3-(ACT) 21.2 mmoll (20.0-26.0); METHB 0.3 % (0.0-1.5); O2(CT) 11.1 mL/dL (15.0-23.0); PCO2(98.6) 42 mmHg (35-45); PO2(98.6) 86 mmHg (60-100); SAMPLE BLOOD; SAO2 99.1 % (95.0-100.0); SRATE 10 BPM; TVOL 700 mL; pH(98.6) 7.31 (7.35-7.45)
[2018-11-10 04:30] LABS: MODALITY VENTILATOR
[2018-11-10 05:02] LABS: BASO# 0.04 X1000 (0.0-0.2); BASO% 0.2 % (0.0-0.8); EOS# 0.37 X1000 (0.0-0.7); EOS% 2.3 % (0.0-10.0); HEMATOCRIT 25.9 % (42.0-52.0); HEMOGLOBIN 7.8 g/dL (14.0-18.0); IMM GRAN# 1.16 X1000 (0.0-0.04); IMM GRAN% 7.2 % (0.0-0.5); LYMPH# 1.41 X1000 (1.2-3.4); LYMPH% 8.7 % (20.5-51.1); MCH 28.1 PG (27-31); MCHC 30.1 g/dL (33-37); MCV 93.2 FL (81-99); MONO# 1.72 X1000 (0.11-0.59); MONO% 10.6 % (1.7-9.3); NEUT# 11.46 X1000 (1.4-6.5); PLT 195 X1000 (130-400); RBC 2.78 XMIL (4.7-6.1); RDW 15.5 % (11.5-14.5); WBC 16.16 X1000 (4.8-10.8)
[2018-11-10] MEDS: HUMALOG SUBQ SCH ×6 (05:14→23:44)
[2018-11-10 05:16] LABS: ALB/GLOB RATIO 0.7; ALBUMIN 2.2 g/dL (3.5-5.0); CALCIUM 7.1 mg/dL (8.8-10.2); CREATININE 2.6 mg/dL (0.7-1.2); TOTAL BILIRUBIN 0.96 mg/dL (0.20-1.00); TOTAL PROTEIN 5.4 g/dL (6.3-8.3)
[2018-11-10] MEDS: ZOSYN 2.25 GM in NS 50 ML IV SCH ×4 (05:28→22:44)
[2018-11-10] MEDS: CLINIMIX E 4.25%-5% SOLUTION 1,000 ML IV SCH ×2 (06:23→16:40)
--- NOTE | 2018-11-10 07:06 | Diag Imaging Result Doc PS360 ---
EXAM: CHEST-PORTABLE 11/10/2018 HISTORY: respiratory failure TECHNIQUE: AP portable at 0521 COMMENT: Compared to 11/09/2018 there is slightly better inspiration and the opacities in the lower lung guillermo have diminished somewhat. There is still considerable perihilar pulmonary edema particularly visible in the upper lung zones. The endotracheal and NG tubes remain in place. IMPRESSION: Slightly improved pulmonary edema and/or atelectasis. Electronically signed by Juan Ramon Trinidad 11/10/2018 7:04 AM
[2018-11-10 07:07] LABS: EOS 2 % (1-10); LYMPHS 8 % (21-51); MONO 10 % (1-9); SEGS 80 % (42-75)
--- NOTE | 2018-11-10 07:12 | PROGRESS NOTE ---
DATE: 11/10/2018 Mr. Chapman is doing fair. The patient is still on a vent. He underwent debridement yesterday. The patient tolerating vent well. The patient did have diarrhea requiring a rectal tube placement. The patient is not able to give any history. Operative note reviewed. OBJECTIVE: Vital signs stable. Neck: Is supple. No JVD. Lungs: Decreased air entry both the bases. CVS: S1 and S2 heard. Abdomen: Soft, globular. Bowel sounds present. SPINNING MACHINE TENDER: The patient is sedated on vent. Wound evaluation as per surgeon. ASSESSMENT: 1. Scrotal and perineal abscess requiring multiple debridement. 2. Acute on chronic kidney failure. 3. Uncontrolled diabetes mellitus. 4. Respiratory failure. LABORATORY DATA: Done today. WBC count 16.16, hemoglobin 7.8, hematocrit 25.9, platelet count 195,000. Blood gas: PH 7.31, pCO2 42, PO2 86. This was done on vent. Electrolytes potassium was 5, BUN 22, creatinine 2.6. LFT results reviewed. Chest x-ray, official result is pending. OVERALL PROGNOSIS: Fair to guarded. PLAN: The patient is on broad-spectrum antibiotics which will continue. Continue the rest of the supportive care and close observation. cc: Hubert Swartz MD
[2018-11-10] MEDS ORDERED: NS 2,000 ML MISC PRN (07:25)
[2018-11-10] MEDS: CLINDAMYCIN 600 MG/D5W 600 MG/50 ML IVPB IV SCH ×3 (08:22→23:38)
[2018-11-10] MEDS: LOVENOX SUBQ SCH (09:09)
[2018-11-10] MEDS: COREG PO SCH ×2 (09:09→21:42)
--- NOTE | 2018-11-10 14:04 | INFECTIOUS DISEASE PROGRESS NO ---
DATE: 11/10/2018 PRESENT ILLNESS: The patient has Yuriy's gangrene. Yesterday, his white count started increasing. Also he had fever. This time I have not been able to find a super infection. MEDICATIONS: The patient is on day 6 of treatment with clindamycin, Zosyn and daptomycin. PHYSICAL EXAMINATION: Vital Signs: Temperature is 99, pulse 60, respirations 15, blood pressure 115/53. General: This is an ill-appearing, middle-aged male. He is intubated and sedated. HEENT: No drainage is noted from the nose or ears. Neck: No meningismus. Lungs: Clear to auscultation. Cardiovascular: Regular heart rate. Abdomen: Soft and not obviously tender. Pelvic: I have been unable to see the patient's wounds. The dressings are changed at surgery. Patient has a right groin dialysis catheter in place. Neurologic: The patient is sedated. He does not respond to verbal stimuli. LAB AND RADIOLOGY: The patient's CBC shows a white count of 16,160, hemoglobin 7.8, and platelet count 195,000. Blood gases show a pH of 7.31, a pO2 of 86, and a pCO2 of 42. Creatinine is 2.6. GFR is 26. AST is 108, alkaline phosphatase is 124. Repeat sputum and urine cultures are negative. Blood cultures are pending. The patient earlier had 1/2 blood cultures growing Staph capitis. The only culture from the tissues that has grown is the anaerobic one and it was positive for Bacteroides. ASSESSMENT AND PLAN: The patient has Yuriy's gangrene. The plan is to continue with the current antibiotics and also I am going to get a CK. COMORBIDITIES: The patient is obese and he has diabetes mellitus and end-stage renal disease. cc: MD Hubert Cobian MD
--- NOTE | 2018-11-10 15:03 | NEPHROLOGY PROGRESS NOTE ---
DATE: 11/10/2018 TIME SEEN: 0730 hours. SUBJECTIVE: Patient remained sedated, mechanically ventilated. OBJECTIVE: Vital Signs: Temperature 98.3 degrees, pulse 59, respiratory rate 17, blood pressure 121/51. Intake 2.2 L. Output 4.3 L. He had 3.8 L UF removal yesterday. General: Middle-aged gentleman currently sedated and mechanically ventilated. HEENT: Normocephalic , atraumatic. Oral mucosa dry. Orally intubated. Neck: Supple with positive JVD. Cardiovascular : Regular rate and rhythm with a gallop. Pulmonary: He has rhonchi bilaterally. Abdomen: Soft, obese. Hypoactive bowel sounds. : Sanchez catheter. Extremities: 2+ edema. Integumentary: Skin is warm and dry. LAB DATA: WBC of 16.6, hemoglobin 7.8, sodium 135, potassium 5.0, CO2 20, creatinine 2.6, albumin 2.2. ASSESSMENT AND PLAN: 1. Acute overlying chronic kidney disease, likely end-stage requiring dialysis. The patient continues to remain fluid volume overloaded. We will run him on slow, low efficiency dialysis today. We will attempt a 4 liter fluid removal. He will run on normal sodium bath. Will run on a 37 bicarbonate bath. 2. Yuriy gangrene followed by Infectious Disease. He had debridement yesterday. He is on appropriately dosed antibiotics. No changes are needed. Dictated by JORGE Orr for Luis Vick MD Face to face encounter, data reviewed, discussed with Abel Baez on 11/10/17. I agree with the above assessment and plan of care. cc: MD Hubert Worthington MD MTDD
[2018-11-10] MEDS: SODIUM CHLORIDE 0.9% INJ SCH (16:40)
[2018-11-10] MEDS: PROTONIX IV SCH (16:40)
--- NOTE | 2018-11-10 22:42 | PULMONOLOGY PROGRESS NOTE ---
DATE: 11/10/2018 SUBJECTIVE: The patient is sedated. He remains on mechanical ventilation. His Levophed has been tapered off. OBJECTIVE: He has been afebrile for the last 24 hours. Blood pressure 130/58, heart rate 59, respiratory rate 17, oxygen saturation 98% on mechanical ventilator.HEENT: Pupils are equal and reactive. Oropharynx is clear. Neck: Supple. Chest: Reveals occasional rhonchi bilaterally. Cardiac: S1-S2. Abdomen: Is obese and soft. Extremities: Are unchanged. Dressing was not removed from the perineal area. LABORATORIES: Chest x-ray reveals slight decrease in pulmonary edema and basilar infiltrates. White blood count 16.16, hemoglobin 7.8, platelet count 195,000. Chemistry. Sodium 135, potassium 5.0, chloride 102, bicarbonate 20, BUN 22, creatinine 2.6, glucose 126, albumin 2.2. Arterial blood gas, pH 7.31, pCO2 of 42, PO2 of 86. IMPRESSION: A 48-year-old with Yuriy gangrene, morbid obesity, protein calorie malnutrition, bilateral pneumonia, diabetes mellitus, acute hypoxemic respiratory failure and acute on chronic renal failure. The patient has hemodynamically improved over the last 24 hours. His abdomen is relatively soft but I will try tube feeds again. RECOMMENDATIONS: 1. Continue Clinimix. Attempt to reinitiate tube feeds. 2. Continue full ventilatory support. 3. Dialysis as tolerated per Nephrology Service. 4. Prognosis remains guarded. He is tentatively scheduled for reevaluation and possible debridement tomorrow morning. TIME SPENT: In critical care 30+ minutes. cc: MD Hubert Jimenez MD
[2018-11-11] MEDS: DIPRIVAN 1% 1,000 MG/100 ML BOTTLE IV SCH ×7 (03:04→23:20)
[2018-11-11] MEDS: HUMALOG SUBQ SCH ×5 (03:30→19:43)
[2018-11-11] MEDS: ZOSYN 2.25 GM in NS 50 ML IV SCH ×4 (03:45→22:47)
[2018-11-11 05:08] LABS: ALLEN TEST YES; BE -5.9 mmoll (-3.0-3.0); BLOOD TYPE ARTERIAL; HCO3-(ACT) 20.3 mmoll (20.0-26.0); METHB 1.6 % (0.0-1.5); O2(CT) 10.7 mL/dL (15.0-23.0); O2HB 95.1 % (95.0-99.0); PCO2(98.6) 37 mmHg (35-45); PO2(98.6) 83 mmHg (60-100); SAMPLE BLOOD; SAO2 99.3 % (95.0-100.0); SRATE 10 BPM; THB 7.9 g/dL (11.5-17.4); TVOL 700 mL; pH(98.6) 7.33 (7.35-7.45)
[2018-11-11 05:09] LABS: MODALITY VENTILATOR
[2018-11-11] MEDS: CLINIMIX E 4.25%-5% SOLUTION 1,000 ML IV SCH ×2 (06:11→19:50)
[2018-11-11 07:08] LABS: HEMATOCRIT 28.7 % (42.0-52.0); HEMOGLOBIN 8.8 g/dL (14.0-18.0); MCH 28.8 PG (27-31); MCHC 30.7 g/dL (33-37); MCV 93.8 FL (81-99); MPV 10.8 FL (7.4-10.4); RBC 3.06 XMIL (4.7-6.1); RDW 15.7 % (11.5-14.5); WBC 17.73 X1000 (4.8-10.8)
[2018-11-11 07:22] LABS: ALB/GLOB RATIO 0.6; ALBUMIN 2.2 g/dL (3.5-5.0); CALCIUM 7.3 mg/dL (8.8-10.2); CREATININE 2.1 mg/dL (0.7-1.2); POTASSIUM 5.2 mmol/L (3.5-5.1); TOTAL BILIRUBIN 1.37 mg/dL (0.20-1.00); TOTAL PROTEIN 5.7 g/dL (6.3-8.3)
--- NOTE | 2018-11-11 07:30 | PROGRESS NOTE ---
DATE: 11/11/2018 SUBJECTIVE: Mr. Blakely is still on vent. Not able to provide any history. According to the nurses, he did have an uneventful night. The patient had diarrhea, and we had to put in a rectal tube. No vomiting. No high-grade fever or chills. OBJECTIVE: Vital signs noted. Lungs: Bilateral good air entry present. Cardiovascular: S1 and S2 heard. 2/6 systolic murmur at the apex. Abdomen soft, globular. Bowel sounds hypoactive. Extremities: No cyanosis, clubbing. No acute DVT. Some black area around the right great toe; does not look like gangrene. TRADEMARK AFFIXER: Patient is on vent and sedated. LABORATORY DATA: Lab data done today did reveal leukocytosis. Hemoglobin 8.8, hematocrit 28.7, platelet count 226,000. Blood Gas: pH 7.33, pCO2 of 37, PO2 was 83. This was done on the ventilator. Electrolyte results are pending. MEDICAL PROBLEMS: The patient's problem includes sepsis, possible Yuriy's gangrene status post excision. [id number] kidney disease on hemodialysis. Blood-loss anemia. Diabetes mellitus. Longstanding hypertension. Patient is on broad-spectrum antibiotics. ID specialist, surgeon, and critical specialist following patient with us. PLAN: We will continue current treatment and close observation. cc: Hubert Swartz MD
[2018-11-11] MEDS ORDERED: NS 2,000 ML MISC PRN (07:34)
--- NOTE | 2018-11-11 07:50 | Diag Imaging Result Doc PS360 ---
EXAM: CHEST-PORTABLE INDICATION: respiratory failure TECHNIQUE: One view COMPARISON: 11/10/2018 FINDINGS: Support tubes and lines are in stable positions. Perihilar and basilar opacities are approximately stable suggesting pulmonary edema +/- atelectasis. No new consolidation is identified. Cardiac silhouette is stable. IMPRESSION: Stable chest. Electronically signed by Yong Melendez 11/11/2018 7:47 AM
[2018-11-11] MEDS: CLINDAMYCIN 600 MG/D5W 600 MG/50 ML IVPB IV SCH ×2 (08:06→17:18)
[2018-11-11] MEDS: LOVENOX SUBQ SCH (08:39)
[2018-11-11] MEDS: COREG PO SCH ×2 (08:39→21:26)
[2018-11-11] MEDS ORDERED: NORCURON ONE (10:52)
[2018-11-11] MEDS ORDERED: SODIUM CHLORIDE 0.9% 10 ML ONE (10:52)
[2018-11-11] MEDS ORDERED: HYDROGEN PEROXIDE SOLUTION ONE (11:55)
[2018-11-11] MEDS: SODIUM CHLORIDE 0.9% INJ SCH (17:09)
[2018-11-11] MEDS: PROTONIX IV SCH (17:18)
[2018-11-11] MEDS: CUBICIN 750 MG in NS 100 ML IV SCH (20:19)
[2018-11-12] MEDS: CLINDAMYCIN 600 MG/D5W 600 MG/50 ML IVPB IV SCH ×2 (00:34→08:35)
[2018-11-12] MEDS: HUMALOG SUBQ SCH ×6 (00:34→20:05)
[2018-11-12] MEDS: DIPRIVAN 1% 1,000 MG/100 ML BOTTLE IV SCH ×3 (02:21→07:56)
[2018-11-12] MEDS: ZOSYN 2.25 GM in NS 50 ML IV SCH ×3 (04:11→16:06)
--- NOTE | 2018-11-12 04:35 | OPERATIVE NOTE ---
PROCEDURE DATE: 11/11/2018 SURGEON: Daquan Colon MD. PREOPERATIVE DIAGNOSIS: Gangrenous changes of perineum and scrotum. POSTOPERATIVE DIAGNOSIS: Gangrenous changes of perineum and scrotum. PROCEDURE: Debridement, attempted wound VAC placement with subsequent repacking. PROCEDURE IN DETAIL: The patient was brought to the operating room. He remains on the ventilator in intensive care unit, but is off pressors. He was placed in the exenteration stirrups. The packing was removed. The area was prepped and draped and sharply debrided of the smaller amounts of necrotic tissue remaining. Attempted wound VAC placement was unsuccessful secondary to multiple creases and crannies with his morbid obesity. A satisfactory seal was not obtained. Wound VAC was subsequently removed. The wound was packed with Betadine-soaked Kerlix. Sterile dressing was otherwise applied. He was awakened in the operating room, and transferred back to the intensive care unit still on the ventilator. cc: MD Hubert Mansfield MD
[2018-11-12 04:50] LABS: ALLEN TEST YES; BE -6.9 mmoll (-3.0-3.0); BLOOD TYPE ARTERIAL; HCO3-(ACT) 19.5 mmoll (20.0-26.0); METHB 0.8 % (0.0-1.5); O2(CT) 11.4 mL/dL (15.0-23.0); O2HB 94.4 % (95.0-99.0); PCO2(98.6) 40 mmHg (35-45); PO2(98.6) 75 mmHg (60-100); SAMPLE BLOOD; SAO2 98.1 % (95.0-100.0); SRATE 10 BPM; THB 8.5 g/dL (11.5-17.4); TVOL 700 mL; pH(98.6) 7.29 (7.35-7.45)
[2018-11-12 04:53] LABS: MODALITY VENTILATOR
--- NOTE | 2018-11-12 06:49 | NEPHROLOGY PROGRESS NOTE ---
DATE: 11/11/2018 SUBJECTIVE: He is sedated on the ventilator. OBJECTIVE: Vital Signs: Blood pressure 144/64, heart rate 63, respiration 13. Exam was performed at approximately 8:00 a.m. Generally, no acute distress. Skin is warm and dry. Conjunctivae are pink. Oropharynx is dry. Neck veins are distended. Heart is regular with a gallop. Lungs are equal. No crackles or wheezes. Abdomen is soft, nontender. Diminished bowel sounds. Extremities have 2+ edema. No clubbing or cyanosis. IMPRESSION: Chronic kidney disease, 5D. He will have hemodialysis today using sustained low-efficiency dialysis with a 4 K bath and a goal of 4 L ultrafiltration. This schedule was modified to bedside intermittent hemodialysis with a 2 K bath because of his surgery schedule. He does have modest hyperkalemia and metabolic acidosis that will be addressed with dialysis. Hemoglobin is below target but does not meet criteria for transfusion. He remains volume overloaded. cc: MD Hubert Worthington MD
[2018-11-12 06:59] LABS: ALB/GLOB RATIO 0.7; ALBUMIN 2.5 g/dL (3.5-5.0); CALCIUM 7.8 mg/dL (8.8-10.2); CREATININE 2.5 mg/dL (0.7-1.2); POTASSIUM 5.3 mmol/L (3.5-5.1); TOTAL BILIRUBIN 1.44 mg/dL (0.20-1.00)
--- NOTE | 2018-11-12 07:04 | Diag Imaging Result Doc PS360 ---
EXAM: CHEST-PORTABLE 11/12/2018 HISTORY: respiratory failure TECHNIQUE: AP portable at 0456 COMMENT: There is an endotracheal tube with its tip approximately 2 cm above the geovany and an NG tube which appears to pass below the diaphragm. There is hazy opacity throughout the perihilar portion of the right lung which appears slightly worse than on 11/11/2018. The left lower lobe has cleared somewhat and the hemidiaphragm is now visible. IMPRESSION: Pulmonary edema and/or pneumonia particularly on the right. Electronically signed by Juan Ramon Trinidad 11/12/2018 7:02 AM
--- NOTE | 2018-11-12 07:44 | PULMONOLOGY PROGRESS NOTE ---
DATE: 11/11/2018 SUBJECTIVE: The patient is sedated. The patient went to the operating room for debridement earlier today. He returned and completed hemodialysis. He was negative approximately 4300 mL. OBJECTIVE: Vital Signs: Blood pressure 123/55, heart rate 59, respiratory rate 14, oxygen saturation 99%. HEENT: Pupils are equal and reactive. Oropharynx is clear. Neck: Supple. Chest: Reveals good air entry bilaterally without wheezing or rhonchi. Cardiac: S1 and S2. Abdomen: Obese and soft. He does have bowel sounds. Extremities: Reveal 1+ edema. LABORATORIES: Arterial blood gas 7.33, pCO2 of 37, PO2 of 83. Chemistry: Sodium 135, potassium 5.2, chloride 101, bicarbonate 19, BUN 20, creatinine 2.1, albumin 2.2. White blood count 17.7, hemoglobin 8.3, platelet count 226,000. Chest x-ray reveals pulmonary edema with some atelectasis at the left base. IMPRESSION: A 48-year-old with Yuriy's gangrene, morbid obesity, pulmonary edema versus pneumonia, diabetes mellitus, acute hypoxemic respiratory failure, acute on chronic renal failure. He has undergone additional debridement. Hemodynamically he is doing well. His oxygen requirements are decreasing. RECOMMENDATIONS: 1. Continue Clinimix. 2. Continue ventilatory support. He will be initiated on a breathing trial tomorrow morning. 3. Continue dialysis as tolerated per the nephrology service. 4. We will try tube feeds tomorrow if he is not successfully weaned and extubated. 5. Prognosis remains guarded. TIME SPENT: The time spent in critical care was 30+ minutes. cc: MD Hubert Jimenez MD
[2018-11-12] MEDS: COREG PO SCH ×2 (08:34→20:13)
--- NOTE | 2018-11-12 08:49 | PROGRESS NOTE ---
DATE: 11/12/2018 SUBJECTIVE: Mr. Blakely is still on the vent, not communicating. The patient does have a wounds in the perineum and on the scrotum. Dr. Dhillon is planning to do another debridement as I talked to him yesterday. The patient is afebrile. OBJECTIVE: Vital Signs: Vital signs noted. Neck: Supple. Lungs: Decreased air entry at both the bases. CVS: S1 and S2 heard, 2/6 systolic murmur at the apex. Abdomen: Soft, globular. Bowel sounds present. STOCK WORKER: Alert, awake. The patient is on vent and sedated, uncooperative for detailed exam. IMAGING: Chest x-ray did reveal pulmonary edema and pneumonia. LABORATORY DATA: Lab data did reveal leukocytosis with hemoglobin of 8.8 and hematocrit 28.7, platelet 226,000. Blood gas results reviewed, pH 7.29, pCO2 40, PO2 was 75. Potassium 5.3, BUN was 27, creatinine 2.5. ASSESSMENT: Patient's problems include: 1. Yuriy's gangrene. 2. Uncontrolled diabetes mellitus. 3. Acute on chronic kidney disease. 4. Respiratory failure. 5. Possible sepsis. 6. Pneumonia. PLAN: Patient is getting broad-spectrum antibiotics. P.r.n. debridement. IV antibiotics. Ventilatory support. Overall prognosis fair to guarded. We will continue current treatment and close observation. cc: Hubert Swartz MD
[2018-11-12] MEDS ORDERED: NS 2,000 ML MISC PRN (10:08)
--- NOTE | 2018-11-12 10:27 | NEPHROLOGY PROGRESS NOTE ---
DATE: 11/12/2018 SUBJECTIVE: He remains sedated, on the ventilator. OBJECTIVE: Vital Signs: Blood pressure 121/50, heart rate 58, respirations 16, afebrile. Intake 3.1 L. Output 3 L. General: No acute distress. Skin: Warm and dry. HEENT: Conjunctivae are pink. Oropharynx is dry. Neck: Neck veins are distended. Heart: Regular. No gallops. Lungs: Equal. No crackles or wheezes. Abdomen: Soft, nontender. Bowel sounds diminished but present. Extremities: Have trace edema. No clubbing or cyanosis. IMPRESSION: Chronic kidney disease 5D. Volume status is progressively improving. Electrolytes and acid-base are improved. He does still have pulmonary edema on his chest x-ray so we will plan for dialysis again today, primarily for volume. A 2 K bath. cc: MD Hubert Worthington MD
[2018-11-12] MEDS: SODIUM BICARBONATE 8.4% IV PUSH SCH ×3 (11:20→22:24)
[2018-11-12] MEDS: CLINIMIX E 4.25%-5% SOLUTION 1,000 ML IV SCH ×2 (11:20→22:24)
[2018-11-12] MEDS: LOVENOX SUBQ SCH (11:21)
[2018-11-12] MEDS: MORPHINE IV PRN ×2 (15:02→20:24)
[2018-11-12] MEDS: SODIUM CHLORIDE 0.9% INJ SCH (17:57)
[2018-11-12] MEDS: FLAGYL 500 MG/NS 500 MG/100 ML IVPB IV SCH (17:57)
[2018-11-12] MEDS: PROTONIX IV SCH (17:58)
[2018-11-12] MEDS: TEFLARO 400 MG in NS 250 ML IV SCH (20:12)
[2018-11-12] MEDS: TYLENOL PO PRN (20:13)
[2018-11-13] MEDS: MORPHINE IV PRN ×3 (00:33→08:36)
[2018-11-13] MEDS: FLAGYL 500 MG/NS 500 MG/100 ML IVPB IV SCH ×4 (00:34→18:13)
[2018-11-13] MEDS: HUMALOG SUBQ SCH ×6 (00:34→20:19)
[2018-11-13 04:42] LABS: ALLEN TEST YES; BE -2.8 mmoll (-3.0-3.0); BLOOD TYPE ARTERIAL; HCO3-(ACT) 22.7 mmoll (20.0-26.0); METHB 0.9 % (0.0-1.5); MODALITY VENTILATOR; O2(CT) 13.5 mL/dL (15.0-23.0); O2HB 93.8 % (95.0-99.0); PCO2(98.6) 41 mmHg (35-45); PO2(98.6) 75 mmHg (60-100); SAMPLE BLOOD; SAO2 96.6 % (95.0-100.0); THB 10.2 g/dL (11.5-17.4); pH(98.6) 7.35 (7.35-7.45)
[2018-11-13 05:42] LABS: BASO# 0.06 X1000 (0.0-0.2); BASO% 0.4 % (0.0-0.8); EOS% 1.8 % (0.0-10.0); HEMATOCRIT 29.8 % (42.0-52.0); HEMOGLOBIN 9.2 g/dL (14.0-18.0); IMM GRAN# 0.53 X1000 (0.0-0.04); IMM GRAN% 3.2 % (0.0-0.5); LYMPH# 1.31 X1000 (1.2-3.4); LYMPH% 7.8 % (20.5-51.1); MCH 28.6 PG (27-31); MCHC 30.9 g/dL (33-37); MCV 92.5 FL (81-99); MONO# 2.42 X1000 (0.11-0.59); MONO% 14.4 % (1.7-9.3); MPV 10.4 FL (7.4-10.4); NEUT# 12.13 X1000 (1.4-6.5); NEUT% 72.4 % (42.2-75.2); PLT 333 X1000 (130-400); RBC 3.22 XMIL (4.7-6.1); RDW 15.5 % (11.5-14.5); WBC 16.75 X1000 (4.8-10.8)
[2018-11-13 05:59] LABS: ALB/GLOB RATIO 0.6; ALBUMIN 2.4 g/dL (3.5-5.0); CALCIUM 8.3 mg/dL (8.8-10.2); CREATININE 2.3 mg/dL (0.7-1.2); TOTAL BILIRUBIN 2.2 mg/dL (0.20-1.00); TOTAL PROTEIN 6.3 g/dL (6.3-8.3)
--- NOTE | 2018-11-13 06:04 | INFECTIOUS DISEASE PROGRESS NO ---
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 There is leukocytosis, pulmonary edema, and also the possibility of pneumonia on the right. He is status post irrigation and debridement of the Yuriy's gangrene x3 on this admission. MEDICATIONS: Today is day 8 of clindamycin 600 mg IV every 8 hours, day 5 of daptomycin 750 mg IV every 48 hours, and day 8 of Zosyn 2.25 g IV every 6 hours. PHYSICAL EXAMINATION: Vital Signs: Temperature is 98.1 degrees, pulse rate 70 , respiratory rate 14, blood pressure 132/65, O2 saturation is 96% on a 45% FiO2 on a mechanical ventilator. General: This is a chronically ill-appearing middle-aged gentleman. He is lying in the bed on the mechanical ventilator in no acute distress. HEENT: Atraumatic, normocephalic. Oral mucous membranes are pink and moist. Conjunctivae are pale. Neck: Supple. Trachea is midline. Cardiovascular: Heart rate and rhythm are regular. Normal sinus rhythm on the monitor. Pedal and radial pulses are +1 bilaterally. There is a mild generalized edema noted as well. Respiratory: Lungs sounds are clear in the upper lobes, diminished in the bases. Respiratory excursion is normal and symmetric per mechanical ventilator. He is currently in CPAP mode on a breathing trial for possible extubation. Abdomen: Soft, obese and nontender. Bowel sounds are hypoactive. There is a NG tube which is in place and is clamped at this time. Integumentary: Skin is warm and dry with eladio noted to the left chest; dry and intact without edema or drainage noted. There is a right groin femoral Vas-Cath and he is currently doing SLED. There is a scrotal wound with packing and bloody drainage noted on the packing. He also has some darkened, necrotic areas to the scrotum and penis. Neurologic: He is drowsy and lethargic, but arousable and will open his eyes, but no eye contact or following commands at this time. LABORATORY AND X-RAY: There is no CBC today. His blood gas this morning on a 50% FiO2 on the ventilator showed a pH is 7.29, pCO2 of 40, PO2 of 75, HCO3 of 19.5. Creatinine 2.5. GFR 28. AST 55, ALT 86, alkaline phosphatase 158. Creatine kinase is 63. Most recent urine culture has shown no growth. The final sputum culture has also shown no growth. Blood cultures have shown no growth after 48 hours. There is one anaerobic culture with Bacteroides from his scrotum. There was also a Staph capitis which initially grew in his blood in 1 out of 2 cultures. 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 He is receiving clindamycin, Zosyn and daptomycin, all of which we will discontinue. We will start him on a modified renal dose of Ceftaroline 400mg IV every 12 hours, and Flagyl 500mg IV every 8 hours. We will also recheck his complete blood count tomorrow. These plans have been discussed with and recommended by Dr. Watson. COMORBIDITIES: For Mr. Blakely include that he is morbidly obese with diabetes mellitus and chronic kidney disease requiring hemodialysis. Dictated by JORGE Allen for Erlin Watson MD This chart was documented by, JORGE Allen and accurately reflects the services performed, treatment plan and medical decisions as attested by the providers signature Erlin Watson MD. cc: MD Hubert Cobian MD MTDD
--- NOTE | 2018-11-13 06:22 | PULMONOLOGY PROGRESS NOTE ---
DATE: 11/12/2018 SUBJECTIVE: The patient has been off propofol most today. He will open his eyes and will attempt to look at the examiner but will not follow commands. OBJECTIVE: The patient has been afebrile for the last 24 hours. Blood pressure. 132/58, heart rate 70, respiratory rate 13, oxygen saturation 97%. He is maintaining his minute ventilation.HEENT: Pupils are equal and reactive. Oropharynx is clear. Neck: Supple. Chest: Reveals good air entry bilaterally. Abdomen: Obese and soft with good bowel sounds. Extremities: Reveal decreased edema. LABORATORIES: Arterial blood gases morning pH 7.29, pCO2 of 40, pO2 of 75. Chemistry sodium 136, potassium 5.3, chloride 101, bicarbonate 18, BUN 27, creatinine 2.5. Chest x-ray: Effusion on the right is slightly worse than yesterday but otherwise limited change. IMPRESSION: A 48-year-old with Yuriy's gangrene, morbid obesity, pleural effusions, pulmonary edema, diabetes mellitus, acute hypoxemic respiratory failure, acute renal failure. He continues to improve although his mental status is currently limiting extubation. RECOMMENDATIONS: 1. Continue Clinimix and tube feeds as tolerated. 2. Continue spontaneous breathing trial through the evening. Anticipate extubation tomorrow morning if his mental status has improved. 3. Continue dialysis as tolerated. 4. Prognosis is guarded. TIME SPENT IN CRITICAL CARE: 30+ minutes. cc: MD Hubert Jimenez MD
[2018-11-13 07:02] LABS: LYMPHS 8 % (21-51); MONO 4 % (1-9); SEGS 88 % (42-75)
--- NOTE | 2018-11-13 07:42 | Diag Imaging Result Doc PS360 ---
CHEST-PORTABLE - 11/13/2018 INDICATION: respiratory failure COMPARISON: 11/12/2018 FINDINGS: Support tubes are stable. Stable severely low lung volumes. There is improvement in the central pulmonary edema. No new infiltrates. Heart size remains top normal. IMPRESSION: Improvement from prior. Electronically signed by Eduin Dia 11/13/2018 7:40 AM
[2018-11-13] MEDS: LOVENOX SUBQ SCH (08:04)
[2018-11-13] MEDS: COREG PO SCH ×2 (08:05→20:19)
[2018-11-13] MEDS ORDERED: MORPHINE IV ONE (08:41)
[2018-11-13] MEDS: TEFLARO 400 MG in NS 250 ML IV SCH ×2 (09:06→20:20)
--- NOTE | 2018-11-13 09:35 | PROGRESS NOTE ---
DATE: 11/13/2018 SUBJECTIVELY: Mr. Blakely is doing fair. The patient had rectal tube and NG tube. insurance law specialist trying weaning parameters. OBJECTIVE: Vital signs: His vital signs noted. Neck: Supple. Lungs: Bilateral air entry present. CVS: S1 and S2 heard. Abdomen: Soft, globular. Bowel sounds present. FACILITIES MECHANICAL DESIGN ENGINEER: The patient is on vent and sedated. Uncooperative for detailed exam. LABORATORY DATA: Lab data noted. Hemoglobin 9.2. Hematocrit 29.8. Platelet count was 333,000. Blood gas results reviewed. PCO2 was 41 and PO2 was 75. Electrolytes result reviewed. CONSIDERATION: 1. Abscess in the perineum and scrotum requiring frequent debridements. 2. [id number] kidney failure on dialysis. 3. Uncontrolled diabetes mellitus. 4. Hypertension. 5. Respiratory failure. Overall, patient is doing fair. Prognosis guarded. Appreciate all solutions consultant's help. Will continue broad-spectrum antibiotics, respiratory support, close observation. I tried to look for family member in the waiting room and they are not available last few days. Left message with the nurse. If they want to talk to me, nurse will call me in the office. cc: Hubert Swartz MD
[2018-11-13] MEDS: CLINIMIX E 4.25%-5% SOLUTION 1,000 ML IV SCH (12:00)
[2018-11-13] MEDS: PROTONIX IV SCH (18:13)
[2018-11-13] MEDS: SODIUM CHLORIDE 0.9% INJ SCH (18:14)
--- NOTE | 2018-11-13 19:41 | INFECTIOUS DISEASE PROGRESS NO ---
DATE: 11/13/2018 PRESENT ILLNESS: The patient has Yuriy gangrene. He has had 3 surgeries for debridement of it. MEDICATIONS: The patient is on day 1 of treatment with ceftaroline and Flagyl. PHYSICAL EXAMINATION: Vital Signs: Temperature maximum was 102, now it is 100, pulse 73, respirations 15, blood pressure 96/51. General: This is an ill-appearing middle-aged male. He is intubated and sedated. Head/eyes/ears/nose/throat: As mentioned above, patient has an orotracheal tube in place. No drainage noted from the nose or ears. Neck: No meningismus. Lungs: Clear to auscultation. Cardiovascular: Regular heart rate. Abdomen: Soft and nontender. Pelvic: I was unable to inspect the patient's wounds. Neurologic: The patient is sedated. He does not have a tremor. The patient has a depressed level of consciousness. There is no tremor. LAB AND X-RAY: CBC today shows a white count of 16,750, hemoglobin 9.2, platelet count 333,000. Blood gases, pH of 7.35, PO2 of 75, pCO2 of 41. Creatinine is 2.3. GFR is 30. Stool for Clostridium difficile toxin is negative. Chest x-ray shows improvement in pulmonary venous congestion. ASSESSMENT AND PLAN: Patient has Yuriy gangrene. He also may have a pulmonary infection and/or pulmonary edema. My plan is to continue with the current antibiotics namely ceftaroline and Flagyl. COMORBIDITIES: He is obese and he has diabetes mellitus. He also has chronic kidney disease requiring hemodialysis. cc: MD Hubert Cobian MD
[2018-11-13] MEDS: TYLENOL PO PRN (20:19)
[2018-11-14] MEDS: HUMALOG SUBQ SCH ×7 (00:58→23:32)
[2018-11-14] MEDS: FLAGYL 500 MG/NS 500 MG/100 ML IVPB IV SCH ×3 (01:00→17:03)
[2018-11-14] MEDS: MORPHINE IV PRN ×4 (01:16→20:16)
--- NOTE | 2018-11-14 01:25 | NEPHROLOGY PROGRESS NOTE ---
DATE: 11/13/2018 SUBJECTIVE: He is sedated, unresponsive. OBJECTIVE: Vital Signs: Blood pressure 96/51, heart rate 73, respirations 15, T-max 101.8. General: No acute distress. Skin: Warm and dry. Conjunctivae are pink. Neck: Neck veins are not distended. Heart: Regular. No gallops. Lungs: Equal. No crackles. Extremities: Minimal edema. IMPRESSION: Acute kidney injury overlying chronic kidney disease. Chronic kidney disease 5D at this point. He will have SLED tomorrow. Electrolytes, acid-base, uremia, anemia, volume status all well-managed. cc: MD Hubert Worthington MD
[2018-11-14] MEDS: CLINIMIX E 4.25%-5% SOLUTION 1,000 ML IV SCH ×2 (03:25→17:03)
[2018-11-14 05:31] LABS: ALLEN TEST YES; BLOOD TYPE ARTERIAL; HCO3-(ACT) 19.5 mmoll (20.0-26.0); METHB 0.8 % (0.0-1.5); O2HB 95.8 % (95.0-99.0); PCO2(98.6) 47 mmHg (35-45); PO2(98.6) 92 mmHg (60-100); SAMPLE BLOOD; SAO2 98.3 % (95.0-100.0); THB 8.8 g/dL (11.5-17.4); pH(98.6) 7.24 (7.35-7.45)
[2018-11-14 05:33] LABS: MODALITY VENTILATOR
[2018-11-14 06:08] LABS: ALB/GLOB RATIO 0.9; ALBUMIN 2.5 g/dL (3.5-5.0); CALCIUM 7.9 mg/dL (8.8-10.2); CREATININE 4.4 mg/dL (0.7-1.2); TOTAL BILIRUBIN 2.33 mg/dL (0.20-1.00); TOTAL PROTEIN 5.2 g/dL (6.3-8.3)
[2018-11-14 06:15] LABS: POTASSIUM 6.3 mmol/L (3.5-5.1)
[2018-11-14] MEDS: TEFLARO 400 MG in NS 250 ML IV SCH ×2 (07:45→19:50)
--- NOTE | 2018-11-14 08:10 | Diag Imaging Result Doc PS360 ---
EXAM: CHEST-PORTABLE INDICATION: respiratory failure TECHNIQUE: One view COMPARISON: 11/13/2018 FINDINGS: Support tubes and lines are in stable positions. Inspiration is suboptimal. Pulmonary venous congestion and central edema are approximately stable given slight differences in inspiration. No new consolidation is identified. Cardiac silhouette is stable. IMPRESSION: Lower lung volumes but essentially stable, otherwise. Electronically signed by Yong Melendez 11/14/2018 8:08 AM
[2018-11-14] MEDS ORDERED: NS 2,000 ML MISC PRN (09:38)
[2018-11-14] MEDS ORDERED: HEPARIN IV PRN (09:38)
[2018-11-14] MEDS ORDERED: TIGHT: 0.2 ML/HR FOR DIALYSIS MISC PRN (09:38)
[2018-11-14] MEDS: LOVENOX SUBQ SCH (10:03)
[2018-11-14] MEDS: COREG PO SCH ×2 (10:03→20:13)
--- NOTE | 2018-11-14 13:16 | PROGRESS NOTE ---
DATE: 11/14/2018 SUBJECTIVE: This is a 48-year-old white gentleman admitted to the hospital on 11/03/2018 with scrotal cellulitis associated with sepsis syndrome. Interval history was reviewed. The patient was seen by multiple consultants. He was in the ICU in guarded condition. PAST MEDICAL HISTORY: Reviewed. PAST SURGICAL HISTORY: Reviewed. MEDICATIONS: Reviewed. ALLERGIES: Not known. REVIEW OF SYSTEMS: Not able to obtain. The patient was intubated. In the last 24 hours, he could not tolerate CPAP, he was back on the mechanical ventilation. Unable to tolerate NG tube feedings, off. Tube feedings and NG tube with low wall suction. Blood pressure is fluctuating. He has a dialysis catheter in the right groin. ET tube and NG tube were noted. Sanchez catheter and rectal tube noted. The patient's brother is at bedside. OBJECTIVE: Vital signs: Temperature is 99, pulse 67, blood pressure 120/66, on mechanical ventilation. He was intubated, sedated. NG tube was seen with low wall suction. He has eladio noted multiple on the upper chest. Bilateral air entry. Distant heart sounds. Belly is soft, nontender. Right groin catheter noted as well as Sanchez catheter and rectal tube. DIAGNOSTIC DATA: CBC yesterday with white cell count 16, hematocrit 29, platelets 333. ABG this morning showed pH was 7.24, pCO2 of 47, pO2 of 92 on ventilator support. SMA-7 showed sodium 136, potassium 6.3, chloride 100, BUN is 52, creatinine 4.4, glucose 136. Bilirubin is 2.3, elevated LFTs. Microbiology: Anaerobic cultures positive for bacteroids. C. difficile toxin was negative. Blood cultures with Staphylococcus capitis. ASSESSMENT AND PLAN: 1. Neurological exam under sedation. 2. Acute respiratory failure on ventilator support, he is off of CPAP mode. 3. GI. Not able to tolerate. Probable ileus. Off the tube feedings. 4. End stage kidney disease on dialysis. Obviously he is getting SLED. 5. Sepsis from the scrotal infection. Currently he is on ceftaroline 400 q.12, Flagyl. 6. Type 2 diabetes. On sliding scale with insulin coverage. 7. DVT prophylaxis with Lovenox. 8. GI prophylaxis with IV Protonix. 9. In the meantime, he is getting nourishment through the IV Clinimix. Follow up on daily x-rays, blood gas and CBC, CMP in the morning. The patient is a full code. Discussed with son at bedside. Continue to monitor. Level of documentation is 45 minutes. cc: MD Hubert Jara MD MTDD
[2018-11-14] MEDS ORDERED: CATHFLO IV ONE ×2 (13:20→13:21)
[2018-11-14] MEDS ORDERED: STERILE WATER INJ. INJ ONE ×2 (13:20→13:21)
[2018-11-14] MEDS ORDERED: STERILE WATER INJ. ONE (13:44)
--- NOTE | 2018-11-14 16:33 | NEPHROLOGY PROGRESS NOTE ---
DATE: 11/14/2018 SUBJECTIVE: He remains sedated on the ventilator. OBJECTIVE: Vital Signs: Blood pressure 125/56, heart rate 67, respirations 13, and temperature 99.2. Intake: 2.9 L. Output: 1.2 L. General: No acute distress. Skin: Warm and dry. HEENT: Conjunctivae are pink. Oropharynx is dry. Neck: Neck vein distention is present. Heart: Irregular with a gallop. Lungs: Equal. No crackles or wheezes. Abdomen: Soft and nontender. Bowel sounds are present. Extremities: The extremities have 1+ edema. No clubbing or cyanosis. IMPRESSION AND PLAN: Acute kidney injury overlying chronic kidney disease. Now chronic kidney disease 5D. Continue intermittent hemodialysis today using a 2 potassium bath and a goal of 2 to 4 L ultrafiltration as his blood pressure allows. He does have moderate hyperkalemia and modest metabolic acidosis today. These will be addressed with dialysis. His hemoglobin is acceptable and he does not meet criteria for transfusion. cc: MD Hubert Worthington MD
[2018-11-14] MEDS: PROTONIX IV SCH (17:03)
[2018-11-14] MEDS: SODIUM CHLORIDE 0.9% INJ SCH (17:04)
[2018-11-15] MEDS: FLAGYL 500 MG/NS 500 MG/100 ML IVPB IV SCH ×5 (00:29→16:37)
[2018-11-15] MEDS: CLINIMIX E 4.25%-5% SOLUTION 1,000 ML IV SCH ×2 (03:43→16:52)
[2018-11-15] MEDS: HUMALOG SUBQ SCH ×6 (03:44→23:44)
[2018-11-15 05:09] LABS: ALB/GLOB RATIO 0.6; ALBUMIN 2.4 g/dL (3.5-5.0); CALCIUM 8.1 mg/dL (8.8-10.2); CREATININE 3.4 mg/dL (0.7-1.2); POTASSIUM 4.9 mmol/L (3.5-5.1); TOTAL BILIRUBIN 2.28 mg/dL (0.20-1.00); TOTAL PROTEIN 6.3 g/dL (6.3-8.3)
[2018-11-15 05:43] LABS: ALLEN TEST YES; BLOOD TYPE ARTERIAL; HCO3-(ACT) 23.3 mmoll (20.0-26.0); METHB 0.8 % (0.0-1.5); O2HB 92.7 % (95.0-99.0); PCO2(98.6) 47 mmHg (35-45); PO2(98.6) 71 mmHg (60-100); SAMPLE BLOOD; SAO2 95.3 % (95.0-100.0); SRATE 12 BPM; THB 9.9 g/dL (11.5-17.4); TVOL 600 mL; pH(98.6) 7.32 (7.35-7.45)
[2018-11-15 05:47] LABS: MODALITY VENTILATOR
[2018-11-15] MEDS: TEFLARO 400 MG in NS 250 ML IV SCH ×2 (07:52→19:28)
[2018-11-15] MEDS: COREG PO SCH ×3 (07:52→21:14)
[2018-11-15] MEDS: PROTONIX IV SCH ×2 (07:53→08:53)
[2018-11-15] MEDS: MORPHINE IV PRN ×3 (07:56→16:25)
--- NOTE | 2018-11-15 08:04 | Diag Imaging Result Doc PS360 ---
EXAM: CHEST-PORTABLE INDICATION: respiratory failure TECHNIQUE: One view COMPARISON: 11/14/2018 FINDINGS: Support tubes and lines are in stable positions. Low lung volumes are essentially stable. Pulmonary venous congestion and mild central edema appear be stable given differences in positioning. No new consolidation is identified. Cardiac silhouette is stable. IMPRESSION: Essentially stable chest. Electronically signed by Yong Melendez 11/15/2018 8:01 AM
[2018-11-15] MEDS: LOVENOX SUBQ SCH (08:52)
[2018-11-15 10:12] LABS: BASO# 0.08 X1000 (0.0-0.2); BASO% 0.6 % (0.0-0.8); EOS# 0.15 X1000 (0.0-0.7); EOS% 1.2 % (0.0-10.0); HEMATOCRIT 29.3 % (42.0-52.0); IMM GRAN# 0.09 X1000 (0.0-0.04); IMM GRAN% 0.7 % (0.0-0.5); LYMPH# 1.42 X1000 (1.2-3.4); LYMPH% 11.3 % (20.5-51.1); MCH 27.9 PG (27-31); MCHC 30.7 g/dL (33-37); MCV 90.7 FL (81-99); MONO# 1.55 X1000 (0.11-0.59); MONO% 12.3 % (1.7-9.3); MPV 9.8 FL (7.4-10.4); NEUT# 9.29 X1000 (1.4-6.5); NEUT% 73.9 % (42.2-75.2); PLT 402 X1000 (130-400); RBC 3.23 XMIL (4.7-6.1); RDW 15.1 % (11.5-14.5); WBC 12.58 X1000 (4.8-10.8)
--- NOTE | 2018-11-15 14:55 | PROGRESS NOTE ---
DATE: 11/15/2018 SUBJECT: Family at the bedside. The patient remains sedated, intubated on ventilator support. Last 24 hours ileus is resolved, tube feeding started along with Clinimix. REVIEW OF SYSTEMS: None reported. OBJECTIVE: Temperature is 98.4, pulse is 66, blood pressure is 115/58.HEENT: Intubated, NG tube was seen. Neck: Supple. Bilateral air entry. Heart: Sounds are distant. Belly: Is soft, nontender. He has indwelling right vascular catheterization as well as Sanchez plus rectal tube was noted. LABS: CBC. White cell count 12.5, hematocrit 29, platelets 402,000. ABG pH is 7.32, pCO2 47, PO2 71 on AC of 12, FiO2 50%, tidal volume 600, PEEP of 50. Sodium 137, potassium 4.9, BUN 46, creatinine 3.4, glucose 133. LFTs were coming down. Anaerobic culture Bacteroides. ASSESSMENT AND PLAN: 1. Septic shock due to scrotal infection due to Bacteroides with above problems. 2. Sedation as needed. 3. Ventilator support as per Dr. Tipton. 4. Bacteroides infection on Flagyl and ceftaroline. 5. Nutrition through the gastrointestinal tube feeding as tolerated along with Clinimix. 6. Deep vein thrombosis, gastrointestinal prophylaxis as per order sheet. Discussed with the family at bedside. Apparently, Dr. Colon is going to debridement tomorrow. Continue supportive care. LEVEL OF DOCUMENTATION: 28 minutes. cc: MD Hubert Jara MD
[2018-11-15] MEDS: SODIUM CHLORIDE 0.9% INJ SCH (16:24)
[2018-11-16] MEDS: FLAGYL 500 MG/NS 500 MG/100 ML IVPB IV SCH ×3 (01:36→17:16)
[2018-11-16] MEDS: HUMALOG SUBQ SCH ×5 (03:30→20:12)
[2018-11-16 04:53] LABS: ALLEN TEST YES; BE -4.4 mmoll (-3.0-3.0); BLOOD TYPE ARTERIAL; HCO3-(ACT) 21.5 mmoll (20.0-26.0); PCO2(98.6) 45 mmHg (35-45); PO2(98.6) 89 mmHg (60-100); SAMPLE BLOOD; SRATE 12 BPM; TVOL 600 mL
[2018-11-16 04:58] LABS: MODALITY VENTILATOR
[2018-11-16 05:53] LABS: ALB/GLOB RATIO 0.6; ALBUMIN 2.3 g/dL (3.5-5.0); CALCIUM 8.2 mg/dL (8.8-10.2); CREATININE 4.7 mg/dL (0.7-1.2); POTASSIUM 5.3 mmol/L (3.5-5.1); TOTAL BILIRUBIN 1.75 mg/dL (0.20-1.00); TOTAL PROTEIN 5.9 g/dL (6.3-8.3)
[2018-11-16] MEDS: CLINIMIX E 4.25%-5% SOLUTION 1,000 ML IV SCH ×2 (06:28→20:23)
[2018-11-16] MEDS ORDERED: NS 2,000 ML MISC PRN (06:47)
[2018-11-16] MEDS ORDERED: HEPARIN IV PRN (06:47)
[2018-11-16] MEDS ORDERED: TIGHT: 0.2 ML/HR FOR DIALYSIS MISC PRN (06:47)
--- NOTE | 2018-11-16 07:16 | Diag Imaging Result Doc PS360 ---
EXAM: CHEST-PORTABLE 11/16/2018 HISTORY: respiratory failure TECHNIQUE: AP portable at 0516 COMMENT: There is an endotracheal tube with its tip at the thoracic inlet and an NG tube which passes below the diaphragm. The inspiration is suboptimal. The appearance the chest has not changed appreciably since 11/15/2018. There is certainly been some improvement since 11/14/2018. IMPRESSION: Poor inspiration. Minimal pulmonary edema. Electronically signed by Juan Ramon Trinidad 11/16/2018 7:14 AM
--- NOTE | 2018-11-16 07:18 | PROGRESS NOTE ---
DATE: 11/16/2018 SUBJECTIVE: Mr. Blakely is doing fair. The patient is still on ventilator support. There was question about oral thrush nurses reported to me. Also patient is going for repeat debridement, incision and drainage today. Also patient does have problem with bleeding around the Vas-Cath and they are going to change it. Patient has a rectal tube. History part gotten from the nurses. OBJECTIVE: His vital signs noted. Lungs: With decreased air entry both the bases. CVS: S1 and S2 heard. A 2-3/6 systolic murmur at the apex. Abdomen: Soft, globular. Bowel sounds hypoactive. Extremities: No acute DVT. LABORER HOISTING: The patient is awake but not communicating. LABORATORY DATA: Done yesterday noted today's labs are pending. Blood gas pH 7.3, pCO2 45, pO2 was 89. Electrolytes sodium 135, potassium 5.3, BUN 78, creatinine 4.7. Total bilirubin 1.75. Albumin 2.3. Patient medical problem includes respiratory failure, kidney failure. The patient does have Yuriy's gangrene requiring frequent debridement, diabetes mellitus, hypertension and chest x-ray did reveal low lung volume. Pulmonary venous congestion. The patient is getting dialysis which will continue. Possible thrush. We will continue current treatment. Close observation. I am going to add a small dose of Diflucan. Continue the rest of the treatment and close observation. cc: Hubert Swartz MD
--- NOTE | 2018-11-16 07:58 | INFECTIOUS DISEASE PROGRESS NO ---
DATE: 11/16/2018 PRESENT ILLNESS: The patient has Yuriy's gangrene. He has had multiple debridements. MEDICATIONS: This is day 4 of treatment with a combination of ceftaroline and Flagyl. PHYSICAL EXAMINATION: Vital Signs: Temperature is 98.8 degrees, pulse 62, respirations 12, blood pressure 119/59. General: This is an ill-appearing, middle-aged male. He is intubated and today he is more alert. Head, Eyes, Ears, Nose, and Throat: The patient has an orotracheal and orogastric tube in place. There is no drainage from the nose or ears. Neck: No meningismus. Lungs: Clear to auscultation. Cardiovascular: Regular heart rate. Abdomen: Soft and nontender. Pelvic: I was unable to see the patient's wounds. The patient has a dialysis catheter in the left groin. Neurologic: The patient today is more alert than he had been. He does not have a tremor. LAB AND X-RAY: The patient's CBC shows a white count of 12,580, hemoglobin 9, and platelet count 402,000. Blood gases show a pH of 7.3, a pO2 of 89, and pCO2 of 45. Chest x-ray shows pulmonary edema. Creatinine is 4.7. GFR is 13. Bilirubin is 1.75, alkaline phosphatase is 132. ASSESSMENT AND PLAN: The patient has Yuriy's gangrene. He may have pneumonia as well. I am going to continue with ceftaroline and Flagyl. I am also going to order a procalcitonin to hopefully distinguish between whether the patient has pulmonary edema or pneumonia. COMORBIDITIES: The patient is obese and he is a diabetic. He also has chronic kidney disease and is getting hemodialysis. cc: MD Hubert Cobian MD
[2018-11-16] MEDS: PROTONIX IV SCH (08:02)
[2018-11-16] MEDS: TEFLARO 400 MG in NS 250 ML IV SCH ×2 (08:03→20:13)
[2018-11-16] MEDS: COREG PO SCH ×2 (08:03→20:12)
[2018-11-16] MEDS: MORPHINE IV PRN (08:11)
[2018-11-16] MEDS: DIFLUCAN 100 MG/NS 100 MG/50 ML IVPB IV SCH (08:48)
[2018-11-16] MEDS ORDERED: NS 250 ML ONE (09:57)
[2018-11-16] MEDS ORDERED: SENSORCAINE-MPF 0.5%/EPI 1:200,000 ONE (10:44)
--- NOTE | 2018-11-16 10:50 | NEPHROLOGY PROGRESS NOTE ---
DATE: 11/16/2018 TIME SEEN: 0715. SUBJECTIVE: Mr. Blakely is awake. He remains on ventilatory support. OBJECTIVE: Vital Signs: Temperature 98.5 degrees, blood pressure 125/66, heart rate 64, respirations 16. He is on 50% FiO2. His last recorded saturation 95%. He has had 3055 in. He has only had 65 mL out to Sanchez catheter. Labs: Sodium is 135, potassium 5.3, chloride 96, CO2, 20, BUN 78, creatinine 4.7, glucose 118, anion gap of 19, calcium 8.2, albumin 2.3. Previous hemoglobin of 9. Previous white count 12.58 on the . ABGs: pH 7.3, CO2 45 , pO2 89, bicarb 21.5 on 50% FiO2. General: This is a 48-year-old white male, who is resting quietly in bed. He appears chronically ill in no acute distress. Skin: Warm and dry. HEENT: Normocephalic, atraumatic. Conjunctiva is pale pink. He has KRISTINA. Mucous membranes are dry. Oral ET tube is in place. Neck: Supple. Trachea midline. No evidence of JVD. Cardiovascular : He is regular rate and rhythm without murmur, rub, or gallop. Lungs: Clear to auscultation bilaterally. Equal excursion. Ventilatory support. Abdomen: Large, round, soft, nontender. Positive bowel sounds. Genitourinary: Scrotal swelling continues. Dressing is intact, per genitourinary inspection. Extremities: 2+ edema, lower extremities. Neurological: As above. ASSESSMENT AND PLAN: 1. Acute kidney injury, overlying chronic kidney disease. The patient now has chronic kidney disease, stage 5. Decreased urinary output requiring hemodialysis. We will plan for dialysis today. He is to be on a 2 K bath. He will dialyze for 3.5 hours. We will attempt to pull 3 to 4 L of ultrafiltration. 2. Electrolytes, acid-base balance with correction on dialysis. 3. Anemia. This is acceptable. 4. Yuriy gangrene to his scrotal area. This continues to be followed by surgery and primary care. I would to thank you for allowing us to follow with this patient. Dictated by JORGE Hirsch for Luis Vick MD Face to face encounter, data reviewed, discussed with Ana Nicholson on 11/16/18. I agree with the above assessment and plan of care. cc: JORGE Hirsch MD Bharat K. Vakharia, MD MTDD
--- NOTE | 2018-11-16 12:32 | Diag Imaging Result Doc PS360 ---
EXAM: CHEST-PORTABLE 11/16/2018 HISTORY: left vas cath TECHNIQUE: AP portable at 1213 COMMENT: There is an endotracheal tube with its tip slightly below the thoracic inlet and an NG tube which passes into the fundus of the stomach. Considering differences in technique there has been no significant change since 11/16/2018 at 0516. There is no evidence of pneumothorax or pleural fluid collection. There is a double-lumen catheter in the left subclavian with its tip in the superior vena cava. IMPRESSION: Stable chest. Electronically signed by Juan Ramon Trinidad 11/16/2018 12:30 PM
[2018-11-16] MEDS: SODIUM CHLORIDE 0.9% INJ SCH (15:47)
--- NOTE | 2018-11-16 21:54 | PULMONOLOGY PROGRESS NOTE ---
DATE: 11/16/2018 SUBJECTIVE: The patient failed weaning trial this weekend and flow was placed back on mechanical ventilation full support. He is scheduled to go to the operating room this morning for an additional debridement and possible closure. OBJECTIVE: Vital Signs: The patient opens his eyes to voice. He has a flattened affect. He has been afebrile for the last 48 hours. Blood pressure 127/66, heart rate 63, respiratory rate 13, oxygen saturation 95%. HEENT: Pupils are equal and reactive. Oropharynx is clear but endotracheal tube in place. Neck: Supple. Chest: Reveals shallow breath sounds bilaterally with decreased rhonchi compared to previous exam. Cardiac: S1-S2. Abdomen: Obese and soft. Groin reveals surgical dressings in place. Extremities: Reveal trace to 1+ edema. LABORATORIES: Arterial blood gas reveals a pH of 7.30, pCO2 of 45, PO2 of 89. No white blood count today. Sodium 135, potassium 5.3, chloride 96, bicarbonate 20, BUN 78, creatinine 4.7. Chest x-ray reveals shallow breath sounds without evidence of pneumothorax or pleural effusions. IMPRESSION: A 48-year-old with morbid obesity, Yuriy gangrene, pleural effusions not easily identified on chest x-ray, pulmonary edema, diabetes mellitus, with acute renal failure and acute hypoxemic respiratory failure. His mental status has improved compared to his last visit but he did fail attempts at weaning and extubation. He is scheduled for the operating room this morning. RECOMMENDATIONS: 1. Continue feeding as tolerated after his surgery has been complete. 2. Reinitiate spontaneous breathing trial tomorrow morning. 3. Continue dialysis. 4. Overall prognosis is guarded but improving. TIME SPENT CRITICAL CARE: 30+ minutes. cc: MD Hubert Jimenez MD
[2018-11-17] MEDS: HUMALOG SUBQ SCH ×6 (00:35→20:38)
[2018-11-17] MEDS: FLAGYL 500 MG/NS 500 MG/100 ML IVPB IV SCH ×3 (00:55→16:29)
[2018-11-17] MEDS: MORPHINE IV PRN ×4 (00:55→22:50)
[2018-11-17 04:58] LABS: ALLEN TEST YES; BE -1.6 mmoll (-3.0-3.0); BLOOD TYPE ARTERIAL; HCO3-(ACT) 23.6 mmoll (20.0-26.0); O2(CT) 15.3 mL/dL (15.0-23.0); O2HB 94.1 % (95.0-99.0); PCO2(98.6) 45 mmHg (35-45); PO2(98.6) 84 mmHg (60-100); SAMPLE BLOOD; SAO2 97.1 % (95.0-100.0); SRATE 12 BPM; THB 11.5 g/dL (11.5-17.4); TVOL 600 mL; pH(98.6) 7.34 (7.35-7.45)
[2018-11-17 05:01] LABS: MODALITY VENTILATOR
[2018-11-17 05:02] LABS: BASO# 0.08 X1000 (0.0-0.2); BASO% 0.7 % (0.0-0.8); EOS# 0.17 X1000 (0.0-0.7); EOS% 1.5 % (0.0-10.0); HEMATOCRIT 30.2 % (42.0-52.0); HEMOGLOBIN 9.7 g/dL (14.0-18.0); IMM GRAN# 0.05 X1000 (0.0-0.04); IMM GRAN% 0.4 % (0.0-0.5); LYMPH# 1.15 X1000 (1.2-3.4); LYMPH% 9.9 % (20.5-51.1); MCH 28.8 PG (27-31); MCHC 32.1 g/dL (33-37); MCV 89.6 FL (81-99); MONO# 1.39 X1000 (0.11-0.59); MPV 9.9 FL (7.4-10.4); NEUT# 8.74 X1000 (1.4-6.5); NEUT% 75.5 % (42.2-75.2); PLT 408 X1000 (130-400); RBC 3.37 XMIL (4.7-6.1); WBC 11.58 X1000 (4.8-10.8)
[2018-11-17 05:12] LABS: INR 1.27; PROTIME 16.9 Seconds (11.0-16.0)
[2018-11-17 05:36] LABS: ALB/GLOB RATIO 0.7; ALBUMIN 2.4 g/dL (3.5-5.0); CALCIUM 8.1 mg/dL (8.8-10.2); CREATININE 3.6 mg/dL (0.7-1.2); MAGNESIUM 2.2 mg/dL (1.5-2.7); TOTAL BILIRUBIN 1.68 mg/dL (0.20-1.00)
--- NOTE | 2018-11-17 06:44 | Diag Imaging Result Doc PS360 ---
EXAM: CHEST-PORTABLE HISTORY: respiratory failure TECHNIQUE: Portable chest single view COMPARISON: 11/15/2018 FINDINGS: No change in the endotracheal tube, nasogastric tube, or left-sided catheter. The lungs are poorly expanded. The heart remains enlarged. No pleural effusions identified. IMPRESSION: No interval improvement. Electronically signed by Karl Baer 11/17/2018 6:42 AM
--- NOTE | 2018-11-17 07:11 | PROGRESS NOTE ---
DATE: 11/17/2018 SUBJECTIVE: Mr. Blakely is doing fair. The patient is still on vent. record retrieval specialist planning weaning trial again today. The patient seems to be responding but not communicating because of endotracheal tube. The patient underwent debridement yesterday. Low-grade fever. No nausea. Residual staying around 250 at times. No chest pain or palpitations. The patient does have a rectal tube. OBJECTIVE: His vital signs noted. Neck supple. No JVD. CVS: S1 and S2 heard. Abdomen soft, globular. Bowel sounds present. HOOK UP DRIVER: Alert. The patient is awake, uncooperative for detailed exam patient. PROBLEM LIST: 1. Respiratory failure, on ventilator support. 2. Diabetes mellitus on sliding scale insulin. 3. 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 The patient is getting parenteral nutrition. 4. Chronic kidney disease; on dialysis. 5. Chest x-ray done today: No interval improvement. 6. Morbid obesity. Overall prognosis fair to guarded. Lab data done today: Hemoglobin 9.7, hematocrit 30.2, WBC count 11.58. PT/INR 1.27. Blood gas results reviewed. Potassium was 5. BUN 66, creatinine 3.6. cc: Hubert Swartz MD
[2018-11-17] MEDS ORDERED: NS 2,000 ML MISC PRN (07:23)
--- NOTE | 2018-11-17 07:57 | INFECTIOUS DISEASE PROGRESS NO ---
DATE: 11/17/2018 PRESENT ILLNESS: The patient has Yuriy's gangrene. He had another debridement performed yesterday. Also, he had a left chest dialysis catheter placed yesterday. MEDICATIONS: The patient is on ceftaroline and Flagyl now for 5 days. PHYSICAL EXAMINATION: Vital Signs: Temperature is 99 degrees, pulse 71, respirations 15, blood pressure 146/67. General: This is an ill-appearing, middle-aged male. He is intubated. He is more alert today. He does seem to track with his eyes. Head, Eyes, Ears, Nose, and Throat: There is no drainage coming from the nose or ears. Orogastric and orotracheal tubes are in place. Neck: No stiffness. Lungs: Clear to auscultation. Cardiovascular: Regular heart rate. Abdomen: Soft and nontender. Pelvic Examination: The catheter in the groin area has been removed. Neurologic: It seemed that the patient did track with his eyes. However, he did not move his extremities to request. Integument: No rash noted. LAB AND X-RAY: CBC today shows a white count of 11,580, hemoglobin 9.7, and platelet count 408,000. Blood gases show a pH of 7.34, a PO2 of 84, pCO2 of 45. Creatinine is 3.6. GFR is 18. Alkaline phosphatase is 137, bilirubin is 1.68. The patient's chest x-ray shows that the lungs are poorly expanded and the heart remains enlarged. No pleural effusions were identified. ASSESSMENT AND PLAN: The patient has Yuriy's gangrene. It appears that his pneumonia is clearing. My plan is to continue ceftaroline and Flagyl. Also, a procalcitonin level was drawn and but the results are pending. COMORBIDITIES: The patient is obese and he is a diabetic. He also has chronic kidney disease and now is on dialysis. cc: MD Hubert Cobian MD
[2018-11-17] MEDS: COREG PO SCH ×2 (08:38→20:31)
[2018-11-17] MEDS: PROTONIX IV SCH (08:39)
[2018-11-17] MEDS: TEFLARO 400 MG in NS 250 ML IV SCH ×2 (08:40→20:31)
[2018-11-17] MEDS: SODIUM BICARBONATE 8.4% IV PUSH SCH ×2 (10:32→16:30)
[2018-11-17] MEDS: CLINIMIX E 4.25%-5% SOLUTION 1,000 ML IV SCH (10:33)
[2018-11-17 10:34] LABS: ALLEN TEST YES; BE -1.9 mmoll (-3.0-3.0); BLOOD TYPE ARTERIAL; HCO3-(ACT) 23.3 mmoll (20.0-26.0); METHB 1.3 % (0.0-1.5); O2(CT) 13.7 mL/dL (15.0-23.0); O2HB 91.7 % (95.0-99.0); PCO2(98.6) 43 mmHg (35-45); PO2(98.6) 70 mmHg (60-100); SAMPLE BLOOD; SAO2 94.9 % (95.0-100.0); THB 10.6 g/dL (11.5-17.4); pH(98.6) 7.35 (7.35-7.45)
--- NOTE | 2018-11-17 10:34 | PULMONOLOGY PROGRESS NOTE ---
DATE: 11/17/2018 SUBJECTIVE: The patient is arousable. He will interact and track the examiner. He will follow simple commands. OBJECTIVE: Vital Signs: BP 141/64, heart rate 69, respiratory rate 13, oxygen saturation 92%. HEENT: Pupils are equal and reactive. Oropharynx is clear but dry. Neck: Supple. Chest: Reveals good air entry bilaterally without wheezing or rhonchi. Cardiac: S1, S2. Abdomen: Obese and soft. Extremities: Reveal trace edema. LABORATORIES: Chest x-ray reveals shallow inspiration with mild vascular congestion without acute changes. Arterial blood gas, pH 7.34, pCO2 of 45, PO2 of 84 on mechanical ventilation. White blood count 11.6, hemoglobin 9.7, platelet count 408,000. IMPRESSION: This is a 48-year-old with Yuriy's gangrene, morbid obesity, pleural effusions, acute hypoxemic respiratory failure, diabetes mellitus, with acute on chronic renal failure. His mental status continues to marginally improve. He has undergone debridement of his Yruiy's gangrene yesterday. PLAN: 1. Hold tube feeds. 2. Initiate spontaneous breathing trial. It is hoped he can be extubated today. 3. Ongoing dialysis. 4. Overall prognosis is guarded. CRITICAL CARE TIME: Time spent in critical care, 30+ minutes. cc: MD Hubert Jimenez MD
[2018-11-17 10:35] LABS: MODALITY VENTILATOR
[2018-11-17] MEDS: SODIUM CHLORIDE 0.9% INJ SCH (16:29)
[2018-11-17] MEDS: DIFLUCAN 100 MG/NS 100 MG/50 ML IVPB IV SCH (17:51)
--- NOTE | 2018-11-17 21:49 | OPERATIVE NOTE ---
PROCEDURE DATE: 11/16/2018 DIAGNOSIS: 1. Gangrenous changes of the perineum. 2. Chronic renal failure. PROCEDURE PERFORMED: 1. Left tunneled subclavian Vas-Cath for hemodialysis. 2. Debridement and primary closure scrotal wound. 3. Debridement of perineal wound. 4. Removal of right femoral vein Vas-Cath. DESCRIPTION OF PROCEDURE: The patient brought to the operating room. He remains on the ventilator for the last 2 weeks in intensive care unit but off pressors. He was placed in supine position. Initially his left head and neck were prepped and draped in the appropriate manner. In midclavicular line a oblique incision was made after infiltration with Marcaine. Subclavian vein was cannulated with guidewire introduction to the right atrial area of the heart. Progressive dilations and tunneling of a 24 cm Vas-Cath was performed with placement of the Vas- Cath in the distal superior vena cava right atrial junction area. It was flushed with heparinized saline. The upper incision underwent subcuticular closure of 4-0 Vicryl, exit was anchored with 2-0 silk. Sterile dressing was applied. The patient was then placed in the exenteration stirrups. His perineum was prepped and draped in the appropriate manner. His scrotum was debrided and the skin edges were elevated and closed primarily with 2-0 nylon. The perineal wound was still exhibiting necrosis and it was further debrided and packed with Betadine- soaked gauze. Attention was then taken to the right femoral catheter. Area was prepped and draped and the femoral catheter was removed. Direct compression was performed for 3-4 minutes. There was no evidence of further back bleeding. Sterile dressing was applied to this area. The patient was subsequently transferred back to the intensive care unit in guarded condition. cc: MD Hubert Mansfield MD
--- NOTE | 2018-11-17 23:31 | NEPHROLOGY PROGRESS NOTE ---
DATE: 11/17/2018 TIME SEEN: 0745 SUBJECTIVE: Mr. Blakely is resting in bed. Head of the bed is elevated. He remains ventilator dependent. There is no sedation on board. He opens his eyes to verbal stimuli. OBJECTIVE: His most recent vital signs temperature 98.8 degrees, blood pressure 150/66, heart rate 71, respirations 19, he is on 50% FiO2, last recorded saturation 93%, he has had 3155 in, he has had 4695 out with 4 L on dialysis yesterday. LAB: Sodium 135, potassium 5, chloride 97, CO2 22, BUN 66, creatinine 3.6, glucose 132, anion gap is 16, calcium 8.1, magnesium 2.2, albumin 2.4, white count 11.58, hemoglobin 9.7, hematocrit 30.2 with a platelet count of 408,000. ABGs pH 7.34, CO2 45, PO2 84, bicarb 23.6 on 50% FiO2. His pro time is 16.9 with INR of 1.27, bilirubin 1.68. PHYSICAL EXAMINATION: General: This is a 48-year-old white male resting quietly in bed. He appears chronically ill no acute distress. Skin: Warm and dry. HEENT: Normocephalic, atraumatic. Conjunctivae pale pink. He has KRISTINA. Mucous membranes dry. Oral ET tube is in place. Neck: Supple. Trachea midline. No JVD. Cardiovascular: Regular rate and rhythm without murmur or gallop. Lungs: Clear to auscultation anterior. Equal excursion, poor inspiratory effort, ventilator support. Abdomen: Large, round, soft, nontender, positive bowel sounds. Genitourinary: Scrotal swelling continues in place dressing intact. Extremities: Continues with 2+ lower extremity edema. Neurological: As above. ASSESSMENT AND PLAN: 1. Acute kidney injury overlying chronic kidney disease. The patient remains in a positive fluid volume pattern today. We will plan for dialysis. We will place him on SLED. We will put him on a 3K bath, he is to dialyze for 3-1/2 hours, we will attempt to pull patient's 3 to 4 L to pull him to euvolemic status. 2. Electrolytes, acid-base balance, correction on dialysis. 3. Anemia. This remains low but stable. 4. Yuriy gangrene in scrotal area followed by surgery and primary care team. Like to thank you for allowing us to follow with this patient. Dictated by JORGE Hirsch for Luis Vick MD Face to face encounter, data reviewed, discussed with Praful Nicholson on 11/17/18. I agree with the above assessment and plan of care. cc: JORGE Hirsch MD Bharat K. Vakharia, MD [facility]
[2018-11-18] MEDS: HUMALOG SUBQ SCH ×7 (00:24→23:33)
[2018-11-18] MEDS: FLAGYL 500 MG/NS 500 MG/100 ML IVPB IV SCH ×3 (00:38→16:43)
[2018-11-18] MEDS: CLINIMIX E 4.25%-5% SOLUTION 1,000 ML IV SCH ×2 (00:39→12:11)
[2018-11-18 04:52] LABS: ALLEN TEST YES; BE -4.7 mmoll (-3.0-3.0); BLOOD TYPE ARTERIAL; HCO3-(ACT) 21.1 mmoll (20.0-26.0); METHB 0.9 % (0.0-1.5); O2(CT) 14.1 mL/dL (15.0-23.0); O2HB 90.2 % (95.0-99.0); PCO2(98.6) 44 mmHg (35-45); PO2(98.6) 65 mmHg (60-100); SAMPLE BLOOD; THB 11.1 g/dL (11.5-17.4)
[2018-11-18 04:53] LABS: MODALITY VENTILATOR
[2018-11-18 05:14] LABS: ALB/GLOB RATIO 0.7; ALBUMIN 2.3 g/dL (3.5-5.0); CALCIUM 7.8 mg/dL (8.8-10.2); CREATININE 2.7 mg/dL (0.7-1.2); POTASSIUM 5.6 mmol/L (3.5-5.1); TOTAL BILIRUBIN 1.46 mg/dL (0.20-1.00); TOTAL PROTEIN 5.6 g/dL (6.3-8.3)
--- NOTE | 2018-11-18 07:34 | Diag Imaging Result Doc PS360 ---
EXAM: CHEST-PORTABLE INDICATION: respiratory failure TECHNIQUE: One view COMPARISON: 11/17/2018 FINDINGS: Support tubes and lines are in stable positions. Bilateral infiltrates likely representing pulmonary edema +/- pneumonia appear to be slightly worse than the previous study, especially on the left. No other new consolidation is identified. Cardiac silhouette is stable. IMPRESSION: Interval slight worsening. Electronically signed by Yong Melendez 11/18/2018 7:31 AM
--- NOTE | 2018-11-18 07:35 | PROGRESS NOTE ---
DATE: 11/18/2018 SUBJECTIVE: Mr. Blakely is doing fair. The patient is still on vent. The patient remains on CPAP until supervisor power reactor. Then, because of respiratory distress, the respiratory therapist put him on full ventilatory support. We are going to try a weaning trial again in the morning. The patient is more alert and awake. The patient had debridement and primary closure of scrotal wound on 11/16/2018. Debridement of perineal wound on 11/16/2018. Removal of right femoral vein Vas-Cath and left sternal subclavian Vas-Cath for hemodialysis placed on November 16. No high-grade fever or chills. The patient has a rectal tube. OBJECTIVE: Vital signs noted. Lungs: Bibasilar crepitation. Heart: S1 and S2 heard. Abdomen: Soft, globular. Bowel sounds present. FITNESS CENTER ATTENDANT: Alert, awake, trying to answer questions. The patient was able to recognize me very well. His lab data done today: Blood gas done today: pH 7.3. Electrolytes: Sodium 134, potassium 5.6. BUN 39, creatinine 2.7. The patient is getting hemodialysis. Blood sugar results reviewed. Chest x-ray: Official result is pending. Overall, the patient is doing fair. We will continue current treatment. Close observation. cc: Hubert Swartz MD
[2018-11-18] MEDS: COREG PO SCH ×2 (08:16→20:25)
[2018-11-18] MEDS: PROTONIX IV SCH (08:16)
[2018-11-18] MEDS: TEFLARO 400 MG in NS 250 ML IV SCH ×2 (08:43→20:25)
[2018-11-18] MEDS: MORPHINE IV PRN (08:43)
[2018-11-18] MEDS: DIPRIVAN 1% 1,000 MG/100 ML BOTTLE IV SCH ×2 (10:20→17:11)
[2018-11-18] MEDS: SODIUM CHLORIDE 0.9% INJ SCH (15:40)
[2018-11-18] MEDS: DIFLUCAN 100 MG/NS 100 MG/50 ML IVPB IV SCH (17:58)
--- NOTE | 2018-11-18 23:23 | NEPHROLOGY PROGRESS NOTE ---
DATE: 11/18/2018 SUBJECTIVE: Mr. Blakely is awake, on the vent. OBJECTIVE: Vital Signs: Blood pressure 141/62, heart rate 73, respirations 16, afebrile. General: He is somewhat diaphoretic and warm. Conjunctivae are pink. Oropharynx is clear. Neck: Supple. Heart: Regular, with no gallops. Lungs: Equal. A few scattered crackles. Abdomen: Soft, nontender. Bowel sounds are present. Extremities: 1+ edema. No clubbing or cyanosis. IMPRESSION: Acute kidney injury overlying chronic kidney disease. Chronic kidney disease, 5D at this point. Volume status is acceptable. He has modest hyperkalemia, with potassium 5.6. BUN 39. Bicarbonate 20. No dialysis today. cc: MD Hubert Worthington MD
--- NOTE | 2018-11-19 00:57 | INFECTIOUS DISEASE PROGRESS NO ---
DATE: 11/18/2018 PRESENT ILLNESS: The patient has Yuriy gangrene. He also has bilateral infiltrates, which combined with a procalcitonin of 1.1, makes the possibility of pneumonia very likely. MEDICATIONS: This is the 6th day of treatment with ceftaroline and Flagyl. PHYSICAL EXAMINATION: Vital Signs: Temperature is 98 degrees, pulse 72, respirations 15, blood pressure 128/59. General: This is an ill-appearing, middle-aged male. He is intubated, and today he is sedated. Head, eyes, ears, nose, and throat: Orotracheal tube is in place, as is an orogastric tube. There is no drainage from the nose or ears. Neck: No stiffness. Lungs: Clear to auscultation. Cardiovascular: Heart rate is regular. Abdomen: Soft and nontender. Pelvic exam: The patient's groin catheter has been removed. Thorax: The patient has a tunneled dialysis catheter on the right side. The site is not erythematous or draining. Neurologic: The patient is sedated. There is no tremor. ASSESSMENT AND PLAN: The patient has Yuriy gangrene, and it appears he has pneumonia as well. My plan is to continue ceftaroline and Flagyl. COMORBIDITIES: The patient is obese, and he is a diabetic. He also has chronic kidney disease. He is receiving hemodialysis. cc: MD Hubert Cobian MD
[2018-11-19] MEDS: FLAGYL 500 MG/NS 500 MG/100 ML IVPB IV SCH ×3 (01:03→20:44)
[2018-11-19] MEDS: CLINIMIX E 4.25%-5% SOLUTION 1,000 ML IV SCH (01:04)
[2018-11-19] MEDS: DIPRIVAN 1% 1,000 MG/100 ML BOTTLE IV SCH (01:06)
[2018-11-19] MEDS: TYLENOL PO PRN (03:32)
[2018-11-19] MEDS: HUMALOG SUBQ SCH ×5 (03:39→20:16)
[2018-11-19 04:56] LABS: ALLEN TEST YES; BE -7.9 mmoll (-3.0-3.0); BLOOD TYPE ARTERIAL; HCO3-(ACT) 18.7 mmoll (20.0-26.0); METHB 1.4 % (0.0-1.5); O2(CT) 13.9 mL/dL (15.0-23.0); O2HB 92.5 % (95.0-99.0); PCO2(98.6) 39 mmHg (35-45); PO2(98.6) 74 mmHg (60-100); SAMPLE BLOOD; SAO2 95.4 % (95.0-100.0); SRATE 12 BPM; THB 10.6 g/dL (11.5-17.4); TVOL 600 mL; pH(98.6) 7.28 (7.35-7.45)
[2018-11-19 04:57] LABS: MODALITY VENTILATOR
--- NOTE | 2018-11-19 05:15 | PULMONOLOGY PROGRESS NOTE ---
DATE: 11/18/2018 SUBJECTIVE: The patient will arouse but he becomes agitated and has tried to reach for the tube today. He was on CPAP through the evening but had decreasing oxygen saturations and was placed back on mechanical ventilation. OBJECTIVE: Vital Signs: The patient has been afebrile for the last 24 hours. Blood pressure 129/60, heart rate 68, respiratory rate 16, oxygen saturation 93%. HEENT: Pupils are equal and reactive. Oropharynx is clear. Neck: Supple. Chest: Reveals occasional rhonchi bilaterally. Cardiac Examination: S1 and S2. Abdomen: Obese and soft. Extremities: Without edema. Surgical dressings remain in the groin. Laboratories: Chest x-ray reveals some increased pulmonary edema or pneumonia which is worse than yesterday. Arterial blood gas reveals a pH of 7.30, pCO2 of 44, PO2 of 65. White blood count not obtained today. IMPRESSION: A 48-year-old with Yuriy's gangrene, morbid obesity, pleural effusions with near clearing, bilateral pulmonary infiltrates/pneumonia, acute hypoxemic respiratory failure, diabetes mellitus, acute on chronic renal failure. It was hoped that he could be extubated today but he has had increased oxygen requirements with changes in pulmonary infiltrates despite being in a negative fluid balance over the last several days. RECOMMENDATIONS: 1. Resume ventilatory support. 2. Dialysis has to be decided by Dr. Vick. 3. Resume tube feeds. 4. Obtain sputum for C and S. 5. Daily evaluation for weaning and extubation. Time spent in critical care, 30+ minutes. cc: MD Hubert Jimenez MD
[2018-11-19 06:33] LABS: ALB/GLOB RATIO 0.7; ALBUMIN 2.4 g/dL (3.5-5.0); CALCIUM 8.1 mg/dL (8.8-10.2); CREATININE 3.6 mg/dL (0.7-1.2); TOTAL BILIRUBIN 1.32 mg/dL (0.20-1.00); TOTAL PROTEIN 5.8 g/dL (6.3-8.3)
[2018-11-19] MEDS ORDERED: NS 2,000 ML MISC PRN (07:19)
--- NOTE | 2018-11-19 07:31 | Diag Imaging Result Doc PS360 ---
EXAM: CHEST-PORTABLE 11/19/2018 HISTORY: respiratory failure TECHNIQUE: AP portable at 0524 COMMENT: There is a double-lumen left subclavian catheter with its tip at the confluence of the brachiocephalic veins. There is an endotracheal tube with its tip 4 cm above the geovany and an NG tube coiled in the fundus of the stomach. There is ill-defined alveolar opacity throughout the upper lung zones bilaterally. This appears worse on the right than on 11/18/2018. IMPRESSION: Worsened pulmonary edema/ARDS Electronically signed by Juan Ramon Trinidad 11/19/2018 7:29 AM
--- NOTE | 2018-11-19 07:40 | PROGRESS NOTE ---
DATE: 11/19/2018 SUBJECTIVE: Mr. Blakely is doing fair. The patient is going for debridement again today by the surgeon. The patient spiked a fever to 100.4 today. The patient was given some Tylenol via NG tube. His gastric residual volume is staying high. I am going to hold NG tube feeding. Patient is still on ventilator, not communicating. OBJECTIVE: Vital signs noted. Neck supple. Lungs: Decreased air entry at both bases. CVS: 2- 3/6 systolic murmur at the apex. Abdomen: Soft, globular. Bowel sounds present which is hypoactive. No acute DVT. BULK DELIVERY DRIVER: Alert, awake. The patient is on vent, sedated, not communicating, uncooperative for detailed neurologic examination. LAB DATA: Blood gas results reviewed; pH 7.28, pCO2 of 39, PO2 was 74. Potassium 6.7. The patient is being followed up by the marble polisher. Sodium 131. BUN was 71, creatinine 3.6. PATIENT'S PROBLEMS: 1. Yuriy's gangrene requiring frequent debridement. 2. Fever. 3. Diabetes mellitus. 4. Chronic kidney disease requiring dialysis. 5. Hypertension. 6. Respiratory failure. Lab and medication noted. I came yesterday to see a family member, and there were none in the evening and none available today, but left message with the nurses. If they have any questions, they can call my office. Overall prognosis fair to guarded. Family is aware of the prognosis. cc: Hubert Swartz MD
[2018-11-19] MEDS: TEFLARO 400 MG in NS 250 ML IV SCH ×2 (08:04→20:44)
[2018-11-19] MEDS: PROTONIX IV SCH (08:05)
[2018-11-19] MEDS: COREG PO SCH ×2 (10:40→20:45)
--- NOTE | 2018-11-19 13:50 | NEPHROLOGY PROGRESS NOTE ---
DATE: 11/19/2018 TIME SEEN: 0740. SUBJECTIVE: Mr. Blakely is currently resting quietly in bed. He is ventilator dependent. He opens his eyes, though he does not follow commands. OBJECTIVE: Most Recent Vital Signs: Temperature 100.4 degrees, blood pressure 138/60, heart rate 67, respirations 18. He is currently on 60% FiO2, his last recorded saturation was 93%. General: This is a 48-year-old male who is currently resting quietly in bed. He is in no acute distress, though he appears chronically ill. Skin: Warm and dry. HEENT: Normocephalic, atraumatic. Conjunctivae pale pink. KRISTINA. Mucous membranes are dry. Neck: Supple. Trachea midline. No evidence of JVD. Cardiovascular: Regular rate and rhythm. He is without murmur or gallop. Lungs: Clear to auscultation anteriorly. Equal excursion. Poor inspiratory effort, even with continued ventilatory support, shallow. Abdomen: Large, round, soft. Nontender. Positive bowel sounds. Genitourinary: Remains with scrotal swelling. Continues with dressing intact. No drainage noted on the dressing today. No odor present. Extremities : Continues with 2+ lower extremity edema. Neurological: As mentioned above. DIAGNOSTIC DATA: Sodium is 131, potassium 6.7, chloride 97, CO2 of 17, BUN 71, creatinine 3.6, glucose 153, the patient had an anion gap of 15, calcium 8.1, albumin is 2.4. Previous hemoglobin 9.7 on 11/17/2018. ASSESSMENT AND PLAN: 1. Acute kidney injury overlying chronic kidney disease, stage 5D. Patient is now on dialysis. He has had no urinary output, requiring dialysis again today. We will place him on SLED. We will have him on a 3K bath. He is to dialyze for 8 hours 27 bicarbonate. We will attempt to pull 2 to 3 L of ultrafiltration as tolerated. 2. Electrolytes and acid-base balance. Again with correction on dialysis. 3. Anemia. This remains low but stable. 4. Yuriy gangrene to scrotal area. This continues to be followed by his surgeon and the primary care team. I would like to thank you for allowing us to follow with this patient. Dictated by JORGE Hirsch for Luis Vick MD Face to face encounter, data reviewed, discussed with Ana Nicholson on 11/19/18. I agree with the above assessment and plan of care. cc: JORGE Hirsch MD Bharat K. Vakharia, MD MTDD
--- NOTE | 2018-11-19 14:08 | PULMONOLOGY PROGRESS NOTE ---
DATE: 11/19/2018 SUBJECTIVE: The patient opens his eyes and startles during examination. His oxygen requirements remain elevated. He is scheduled for debridement later this afternoon. OBJECTIVE: Vital signs: Maximum temperature in the last 24 hours 100.4 degrees, blood pressure 115/64, heart rate 73, respiratory rate 20. General: He currently is on dialysis. HEENT: Pupils are equal and reactive. Oropharynx is clear. Neck: Supple. Chest: Chest reveals coarse rhonchi bilaterally. Cardiac: S1, S2. Abdomen: Obese and soft with rare bowel sounds. Extremities: Without edema. DIAGNOSTIC DATA: Chest x-ray reveals increasing pulmonary infiltrates bilaterally. White blood count 11.6, hemoglobin 9.7, platelet count 408,000. Arterial blood gas reveals a pH 7.28, pCO2 of 39, PO2 of 74. IMPRESSION: A 48-year-old with: 1. Yuriy gangrene. 2. Morbid obesity. 3. Pleural effusions with pulmonary infiltrates and pneumonia. 4. Acute hypoxemic respiratory failure. 5. Diabetes mellitus. 6. Acute on chronic renal failure. The patient's chest x-ray has worsened over the last 24 to 48 hours, and the etiology for the worsening is not clear, but he may be sustaining an acute lung injury associated with his underlying infection. RECOMMENDATIONS: 1. Continue full ventilatory support. 2. Continue SLEDD per Dr. Vick. 3. Check sputum for C S. 4. Anticipate debridement this afternoon. 5. We will evaluate for extubation this weekend, but if his chest x-ray continues to worsen, his extubation will have to be delayed. TIME SPENT IN CRITICAL CARE: 30+ minutes. cc: MD Hubert Jimenez MD
[2018-11-19] MEDS ORDERED: ZEMURON ONE (15:11)
[2018-11-19] MEDS ORDERED: DIPRIVAN 1% ONE (15:11)
[2018-11-19 16:11] LABS: HEMATOCRIT 34.4 % (42.0-52.0); HEMOGLOBIN 10.7 g/dL (14.0-18.0)
[2018-11-19 16:23] LABS: POTASSIUM 6.7 mmol/L (3.5-5.1)
[2018-11-19 16:51] LABS: CALCIUM 8.4 mg/dL (8.8-10.2); CREATININE 2.5 mg/dL (0.7-1.2)
[2018-11-19] MEDS ORDERED: HUMULIN R ONE ×2 (17:28→17:44)
[2018-11-19] MEDS ORDERED: D50W SYRINGE ONE (17:29)
[2018-11-19] MEDS: SODIUM CHLORIDE 0.9% INJ SCH (17:30)
[2018-11-19 19:53] LABS: ALBUMIN 2.1 g/dL (3.5-5.0); CALCIUM 8.7 mg/dL (8.8-10.2); CREATININE 2.7 mg/dL (0.7-1.2); PHOSPHORUS 5.8 mg/dL (2.7-4.5); POTASSIUM 5.4 mmol/L (3.5-5.1)
[2018-11-19] MEDS: ALBUTEROL 0.5% INH CONC FOR HYPERKALEMIA INH SCH (20:00)
[2018-11-19] MEDS: D50W SYRINGE IV SCH (20:43)
[2018-11-19] MEDS: HUMULIN R IV SCH (20:44)
[2018-11-19] MEDS: DIFLUCAN 100 MG/NS 100 MG/50 ML IVPB IV SCH (20:44)
[2018-11-19] MEDS: MORPHINE IV PRN (20:45)
[2018-11-20] MEDS: ALBUTEROL 0.5% INH CONC FOR HYPERKALEMIA INH SCH
[2018-11-20] MEDS: HUMALOG SUBQ SCH ×6 (00:10→20:50)
--- NOTE | 2018-11-20 00:54 | OPERATIVE NOTE ---
PROCEDURE DATE: 11/19/2018 PREOPERATIVE DIAGNOSIS: History of gangrenous changes, scrotum and perineum. PROCEDURE: Debridement of penile foreskin. Debridement of perineal wound. Secondary closure of perineal wound, with placement of Dameon-Magaña drain. SURGEONS: Dr. Colon, Dr. Valentine. DESCRIPTION OF PROCEDURE: The patient was brought to the operating room. He was already intubated, has been so for 2 weeks in intensive care. His previous dressing was removed, revealing a bit of necrosis in the perineal area, and some in the foreskin. The area was prepped and draped. The necrotic black eschar around the foreskin were sharply debrided. The necrotic skin and subcutaneous tissue in the perineal wound was likewise sharply debrided. A Dameon-Magaña drain was placed through a separate stab wound incision on the left side, threaded up through and underneath the scrotal incision, and hooked to suction. The skin of the perineum was subsequently closed with widely spaced 2-0 nylon. On completion, the defect was completely covered with a satisfactory seal with the Dameon-Magaña. A sterile dressing was applied. He was transferred back to the intensive care unit in guarded condition. Prognosis remains guarded at this point. Estimated blood loss was about 20 mL. cc: MD Hubert Mansfield MD
[2018-11-20] MEDS: D50W SYRINGE IV SCH (01:09)
[2018-11-20] MEDS: HUMULIN R IV SCH (01:10)
--- NOTE | 2018-11-20 01:25 | INFECTIOUS DISEASE PROGRESS NO ---
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 He has had debridement and closure of his scrotal wound, with insertion of a JARED drain today. He also appears to have a pneumonia, with an elevated procalcitonin level. Chest x-ray shows worsening pulmonary edema/ ARDS. MEDICATIONS: Today is day 7 of treatment using renally-dosed ceftaroline 400 mg IV every 12 hours, and metronidazole 500 mg IV every 8 hours. PHYSICAL EXAMINATION: Vital Signs: Temperature is 98.4, pulse rate 96, respiratory rate 20, blood pressure 133/72, oxygen saturation is 92% on 60% FiO2 on mechanical ventilator. HEENT: Atraumatic, normocephalic. Oral mucous membranes are pink and moist. Conjunctivae are pink. Oral ET tube is in place, as well as an NG tube, which is clamped at this time. Integumentary: There is a left chest dialysis catheter, as well as a Xeroform dressing to the scrotum, with sutures noted to the incision line. There is a JARED drain in place, with a small amount of bloody drainage noted in the tubing. Respiratory: Lung sounds are generally diminished, with some coarse rhonchi bilaterally. Cardiovascular: Heart rate and rhythm are regular. Normal sinus rhythm on the monitor. Pedal and radial pulses are palpable bilaterally. Abdomen: Soft, obese. Bowel sounds are hypoactive. Neurologic: He has recently returned from surgery, and is lethargic. Opened his eyes and did make eye contact, but not following any commands at this point. LABORATORY AND X-RAY: Hemoglobin done this afternoon was 10.7. Blood gas on 60 % FiO2 on the mechanical ventilator this morning showed a pH of 7.28, pCO2 39, PO2 74, HCO3 18.7. Creatinine 2.5. GFR 28. There is a sputum culture which is pending. Chest x-ray today shows worsening pulmonary edema/ARDS. 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 He has undergone multiple debridements, and today has had wound closure with JARED drain insertion. There appears to be a pneumonia as well. He has had a mild leukocytosis. At this point, we will continue the ceftaroline and Flagyl as ordered, and recheck labs in the morning. These plans have been discussed with and recommended by Dr. Watson. COMORBIDITIES: Morbid obesity, diabetes mellitus, and chronic kidney disease, requiring hemodialysis on this admission. Dictated by JORGE Allen for Erlin Watson MD This chart was documented by, JORGE Allen and accurately reflects the services performed, treatment plan and medical decisions as attested by the providers signature Erlin Watson MD. cc: MD Hubert Cobian MD [facility]
[2018-11-20] MEDS: MORPHINE IV PRN ×3 (03:12→13:15)
[2018-11-20] MEDS: FLAGYL 500 MG/NS 500 MG/100 ML IVPB IV SCH (04:41)
[2018-11-20 04:49] LABS: ALLEN TEST YES; BE -7.3 mmoll (-3.0-3.0); BLOOD TYPE ARTERIAL; HCO3-(ACT) 19.1 mmoll (20.0-26.0); METHB 1.4 % (0.0-1.5); O2(CT) 13.4 mL/dL (15.0-23.0); PCO2(98.6) 39 mmHg (35-45); PO2(98.6) 62 mmHg (60-100); SAMPLE BLOOD; SAO2 92.4 % (95.0-100.0); SRATE 12 BPM; THB 10.6 g/dL (11.5-17.4); TVOL 600 mL; pH(98.6) 7.29 (7.35-7.45)
[2018-11-20 05:01] LABS: MODALITY VENTILATOR
[2018-11-20 05:02] LABS: O2HB 89.4 % (95.0-99.0)
[2018-11-20 06:03] LABS: BASO# 0.13 X1000 (0.0-0.2); BASO% 0.8 % (0.0-0.8); EOS# 0.09 X1000 (0.0-0.7); EOS% 0.6 % (0.0-10.0); HEMATOCRIT 32.6 % (42.0-52.0); HEMOGLOBIN 10.2 g/dL (14.0-18.0); IMM GRAN# 0.09 X1000 (0.0-0.04); IMM GRAN% 0.6 % (0.0-0.5); LYMPH% 7.6 % (20.5-51.1); MCH 28.6 PG (27-31); MCHC 31.3 g/dL (33-37); MCV 91.3 FL (81-99); MONO# 2.04 X1000 (0.11-0.59); MONO% 12.9 % (1.7-9.3); NEUT# 12.21 X1000 (1.4-6.5); NEUT% 77.5 % (42.2-75.2); PLT 310 X1000 (130-400); RBC 3.57 XMIL (4.7-6.1); RDW 15.1 % (11.5-14.5); WBC 15.76 X1000 (4.8-10.8)
[2018-11-20 06:48] LABS: LYMPHS 10 % (21-51); MONO 8 % (1-9); SEGS 82 % (42-75)
[2018-11-20 07:31] LABS: ALB/GLOB RATIO 0.7; ALBUMIN 2.1 g/dL (3.5-5.0); CALCIUM 7.9 mg/dL (8.8-10.2); CREATININE 3.4 mg/dL (0.7-1.2); TOTAL BILIRUBIN 2.09 mg/dL (0.20-1.00); TOTAL PROTEIN 5.3 g/dL (6.3-8.3)
--- NOTE | 2018-11-20 07:38 | PROGRESS NOTE ---
DATE: 11/20/2018 SUBJECTIVE: Mr. Blakely is doing fair. The patient is still on vent. He did require another debridement of the perineal area by the surgeon yesterday. According to the nurses, his oxygen requirement seems to be increasing this morning. No high-grade fever or chills. Patient has a rectal tube. No further history available at this time. OBJECTIVE: Vital Signs: Blood pressure 110/53, pulse 100, respirations 14, temperature 98.4. Lungs: Decreased air entry in both bases. CVS: S1 and S2 heard. 2/6 systolic murmur at the apex. Abdomen soft, globular. Bowel sounds hypoactive. CREW LEADER: Patient is on vent, sedated. No acute DVT. Lab data done today: Blood gas: pH 7.29, pCO2 of 39, PO2 was 62. This was done on FiO2 of 90%. Electrolytes and results are pending. CBC did reveal leukocytosis. Hemoglobin 10.2, hematocrit 32.6, platelet count 310,000 with left shift. Chest x-ray result, ordered for today, is pending. The one done yesterday did reveal worsened pulmonary edema or ARDS. Overall, prognosis fair to guarded. PATIENT'S PROBLEMS: 1. Yuriy's gangrene. 2. Uncontrolled diabetes mellitus. 3. Cnypk-kj-ncqlcsc kidney disease; on hemodialysis. 4. Respiratory failure. Possible acute respiratory distress syndrome. cc: Hubert Swartz MD
[2018-11-20 07:41] LABS: POTASSIUM 6.4 mmol/L (3.5-5.1)
--- NOTE | 2018-11-20 08:23 | Diag Imaging Result Doc PS360 ---
EXAM: CHEST-PORTABLE INDICATION: respiratory failure TECHNIQUE: One view COMPARISON: 11/19/2018 FINDINGS: Support tubes and lines are in stable positions. Extensive airspace consolidation with an upper lobe predominance is again identified. It may be marginally worse. No definite new consolidation is identified. Cardiac silhouette is stable. IMPRESSION: Bilateral extensive consolidations that may be slightly worse. Electronically signed by Yong Melendez 11/20/2018 8:21 AM
[2018-11-20] MEDS ORDERED: NS 2,000 ML MISC PRN (08:27)
[2018-11-20] MEDS: PROTONIX IV SCH (08:55)
[2018-11-20] MEDS: COREG PO SCH ×2 (08:55→21:02)
[2018-11-20] MEDS: MERREM 1 GM in NS 50 ML IV SCH ×2 (08:55→21:04)
[2018-11-20] MEDS: ZYVOX 600 MG/D5W 600 MG/300 ML IVPB IV SCH ×2 (08:55→21:04)
--- NOTE | 2018-11-20 09:11 | INFECTIOUS DISEASE PROGRESS NO ---
DATE: 11/20/2018 PRESENT ILLNESS: Mr. Blakely is being treated for Yuriy's gangrene and has had multiple debridements, most recently, with closure of his scrotal wound and insertion of a JARED drain done yesterday. His respiratory status continues to worsen with pulmonary edema and ARDS, as well as a possible pneumonia based on elevated procalcitonin. MEDICATIONS: He is on day 8 of ceftaroline 400 mg IV every 12 hours and Flagyl 500 mg IV every 8 hours. PHYSICAL EXAMINATION: Vital Signs: Temperature is 98.4, pulse rate 90, respiratory rate 22, blood pressure 110/53, O2 saturation is 93% on 90% FiO2 on the mechanical ventilator. General: This is a critically ill-appearing, morbidly obese gentleman. He is lying in the bed drowsy and lethargic on the mechanical ventilator. HEENT: Atraumatic, normocephalic. Oral mucous membranes are pink and moist. Conjunctivae are pink. Oral ET tube in place, as well as NG tube with tube feedings infusing. Abdomen: Soft, obese, and bowel sounds are active. Respiratory: Lung sounds have coarse rhonchi noted bilaterally. Cardiovascular: Heart rate and rhythm are regular. Normal sinus rhythm on the monitor. Radial and pedal pulses are +1 bilaterally. Integumentary: There is a left chest dialysis catheter, site of which is free of edema, erythema or drainage. His scrotum and penile wounds have Xeroform dressings in place. There are sutures noted to incision line on the scrotum. There is a JARED drain with a small amount of bloody drainage in the tubing. Neurologic: He is lethargic and drowsy, but will open his eyes and make eye contact at times. Not following commands at this point. LABORATORY AND X-RAY: Today, his white count is 15.76, hemoglobin 10.2, platelet count 310,000. This morning on 90% FiO2 on the mechanical ventilator, his pH is 7.29, pCO2 39, PO2 62, HCO3 19.1. Creatinine is 3.4, GFR 19. AST 14, ALT 14, alkaline phosphatase 118. There is a sputum culture which is pending. Chest x-ray today shows extensive airspace consolidation with an upper lobe predominance again identified that may be marginally worse. ASSESSMENT AND PLAN: Mr. Blakely is being treated for Yuriy's gangrene. He has had multiple surgical interventions, and has now had wound closure with JARED drain insertion. He also appears to have pneumonia on top of acute respiratory distress syndrome with an increasing leukocytosis. He has been on ceftaroline and Flagyl for 8 days, so we will discontinue these medications. We will go ahead and redraw a set of blood cultures today, and start Zyvox 600 mg intravenous every 12 hours and meropenem 1 gram intravenous every 12 hours based on a renally-modified dose. There is a sputum culture pending. These plans have been discussed with and recommended by Dr. Watson. COMORBIDITIES: Comorbidities for Mr. Blakely include morbid obesity, diabetes mellitus, and chronic kidney disease with hemodialysis. Dictated by JORGE Allen for Erlin Watson MD This chart was documented by, JORGE Allen and accurately reflects the services performed, treatment plan and medical decisions as attested by the providers signature Erlin Watson MD. cc: MD Hubert Cobian MD [facility]
--- NOTE | 2018-11-20 12:06 | NEPHROLOGY PROGRESS NOTE ---
DATE: 11/20/2018 SUBJECTIVE: The patient remains mechanically ventilated. Sedation is on hold at this time. I asked him to squeeze my hand; he did so briefly. He does blink when I say his name and eyes track around the room. OBJECTIVE: Vital signs: Temperature 98.8, pulse 95, respiratory rate 22, blood pressure 110/51, intake 1.5 L, output 3.6 L. General: Middle-aged gentleman resting in bed, currently mechanically ventilated. HEENT: Normocephalic, atraumatic. Conjunctivae pink , oral mucosa dry. Neck: Supple with no JVD noted. Cardiovascular: Regular rate and rhythm. Pulmonary: Equal excursion, mechanically ventilated. Abdomen: Soft. positive bowel sounds, hypoactive. : Dressing in place. Integumentary: Skin is warm and dry, continues with 2+ edema up to the thighs. LABORATORY DATA: WBC 15.7, hemoglobin 10.2. Sodium 133, potassium 6.4, CO2 of 16, creatinine 3.4. ASSESSMENT AND PLAN: 1. Acute kidney injury overlying chronic kidney disease, now stage 5D. Will run him on SLEDD today. He will dialyze on a 3K bath/2-3 L or as tolerated fluid removal. 2. Electrolytes/acid-base balance. His potassium yesterday was expected to be much improved after dialysis. He remained with potassium greater than 6. Will dialyze him today on a low-potassium bath and then will check his labs correction through his treatment. Further orders to follow once we have that information. 3. Yuriy gangrene followed by Surgery and Primary Care. His antibiotics are currently appropriately dosed. No changes are needed. Dictated by JORGE Orr for Luis Vick MD Data reviewed, discussed with Abel Baez on 11/20/28. I agree with the above assessment and plan of care. cc: MD Hubert Worthington MD [facility]
--- NOTE | 2018-11-20 14:41 | PULMONOLOGY PROGRESS NOTE ---
DATE: 11/20/2018 SUBJECTIVE: Patient remains on mechanical ventilation. He opens his eyes to stimulation. He is currently on hemodialysis. OBJECTIVE: The patient has been afebrile over the last 24 hours. Blood pressure 92/54, heart rate 89, respiratory rate 18, with some ventilator patient dyssynchrony. HEENT: Pupils are equal and reactive. Oropharynx is clear. Neck is supple. Chest reveals coarse rhonchi bilaterally. Cardiac Exam: S1 S2. Abdomen is obese and soft with good bowel sounds. Extremities reveal chronic edema. LABORATORY DATA: Chest x-ray reveals extensive bilateral infiltrates which might be marginally worse. Arterial blood gas: pH 7.29, pCO2 of 39, PO2 of 62. Sodium 133, potassium 6.4, chloride 99, bicarbonate 16. Anion gap 18. BUN 44, creatinine 3.4, bilirubin 2.9. White blood count 15.76. Hemoglobin 10.2. Platelet count 310,000. Microbiology without new data. IMPRESSION: A 48-year-old with 1. Yuriy's gangrene. 2. Morbid obesity. 3. Acute respiratory distress syndrome with acute hypoxemic respiratory failure. 4. Pneumonia. 5. Pleural effusions. 6. Diabetes mellitus. 7. Xrwkw-[id number]-uhbghnl renal failure. Patient's oxygen requirements have increased over the last 24 hours. RECOMMENDATION: 1. Continue full ventilatory support. 2. Continue sustained low-efficiency dialysis per Dr. Vick. 3. Follow up cultures as available. 4. Continue tube feeds. 5. The patient will not be a candidate for weaning and extubation given worsening pulmonary and hemodynamic status. His prognosis remains guarded. TIME SPENT IN CRITICAL CARE: 30+ minutes. cc: MD Hubert Jimenez MD
[2018-11-20] MEDS: SODIUM CHLORIDE 0.9% INJ SCH (19:11)
[2018-11-20] MEDS: DIFLUCAN 100 MG/NS 100 MG/50 ML IVPB IV SCH (20:50)
[2018-11-21] MEDS: HUMALOG SUBQ SCH ×6 (00:05→20:47)
[2018-11-21 05:33] LABS: ALLEN TEST YES; BE -4.2 mmoll (-3.0-3.0); BLOOD TYPE ARTERIAL; HCO3-(ACT) 21.5 mmoll (20.0-26.0); METHB 0.8 % (0.0-1.5); O2(CT) 12.6 mL/dL (15.0-23.0); PCO2(98.6) 38 mmHg (35-45); PO2(98.6) 60 mmHg (60-100); SAMPLE BLOOD; SAO2 92.5 % (95.0-100.0); SRATE 12 BPM; THB 9.9 g/dL (11.5-17.4); TVOL 600 mL; pH(98.6) 7.35 (7.35-7.45)
[2018-11-21 05:37] LABS: MODALITY VENTILATOR; O2HB 89.9 % (95.0-99.0)
[2018-11-21 06:38] LABS: ALB/GLOB RATIO 0.5; ALBUMIN 1.9 g/dL (3.5-5.0); CALCIUM 8.3 mg/dL (8.8-10.2); CREATININE 2.6 mg/dL (0.7-1.2); POTASSIUM 5.4 mmol/L (3.5-5.1); TOTAL BILIRUBIN 2.24 mg/dL (0.20-1.00); TOTAL PROTEIN 5.8 g/dL (6.3-8.3)
--- NOTE | 2018-11-21 07:16 | Diag Imaging Result Doc PS360 ---
EXAM: CHEST-PORTABLE HISTORY: respiratory failure TECHNIQUE: Portable chest single view COMPARISON: 11/20/2017 FINDINGS: No change in the endotracheal tube, nasogastric tube, or left subclavian line. There are dense bilateral infiltrates similar to the prior study. No cardiomegaly. IMPRESSION: No interval improvement. Electronically signed by Karl Baer 11/21/2018 7:13 AM
[2018-11-21] MEDS: MERREM 1 GM in NS 50 ML IV SCH ×2 (08:15→20:51)
[2018-11-21] MEDS: ZYVOX 600 MG/D5W 600 MG/300 ML IVPB IV SCH ×2 (08:15→20:46)
[2018-11-21] MEDS: COREG PO SCH (08:16)
[2018-11-21] MEDS: PROTONIX IV SCH (08:23)
[2018-11-21] MEDS: SODIUM CHLORIDE 0.9% INJ SCH (08:24)
[2018-11-21] MEDS: LEVOPHED 8 MG in D5 1/2 NS 250 ML IV SCH ×3 (08:47→21:51)
[2018-11-21] MEDS: ALBUMIN 25% IV SCH (09:51)
[2018-11-21] MEDS ORDERED: NS 2,000 ML MISC PRN (10:16)
[2018-11-21] MEDS ORDERED: HEPARIN IV PRN (10:16)
[2018-11-21] MEDS ORDERED: TIGHT: 0.2 ML/HR FOR DIALYSIS MISC PRN (10:16)
[2018-11-21] MEDS: MORPHINE IV PRN (10:32)
--- NOTE | 2018-11-21 12:28 | PROGRESS NOTE ---
DATE: 11/21/2018 SUBJECTIVE: Mr. Blakely is not doing well. His oxygen requirement is going up. Chest x-ray did not show any improvement. The patient had some bloody aspirate in his endotracheal tube. OBJECTIVE: Vital signs noted. Patient is tachypneic at times. Neck supple. Lungs: Few inspiratory crepitations. CVS: S1 and S2. Tachycardia. Abdomen soft, globular. Bowel sounds hypoactive. AUTO TECH: Patient is on vent and sedated. Chest x-ray did not show any improvement. LABORATORY DATA: Lab data done today: Blood gas results reviewed. PO2 is 60 with FiO2 of 100%. BUN 28, creatinine 2.6. Potassium 5.4. CONSIDERATION: 1. Sepsis. 2. Adult respiratory distress syndrome. 3. Xehme-bs-bbsvixm kidney disease on hemodialysis. 4. Patient had Yuriy's gangrene. Dr. Colon is taking care of it. 5. Hypertension. Lab and medication noted. The patient's brother and family member present. Overall prognosis and plan discussed and they are aware. cc: Hubert Swartz MD
--- NOTE | 2018-11-21 13:51 | NEPHROLOGY PROGRESS NOTE ---
DATE: 11/21/2018 SUBJECTIVE: The patient is resting in bed, remains sedated and mechanically ventilated. OBJECTIVE: Vital Signs: Temperature 98.2, pulse 99, respiratory rate 22, blood pressure 85/41. Intake 1.1 L. Output 3.4 L. PHYSICAL EXAMINATION: General: This is a middle-aged gentleman currently sedated, mechanically ventilated. HEENT: Normocephalic, atraumatic. Orally intubated. Neck is supple. Unable to determine JVD. Cardiovascular: Regular rate and rhythm. Somewhat tachy. Abdomen soft. Positive bowel sounds. Pulmonary: He has got coarse rhonchi bilaterally. He is now on 100% FiO2 on the vent. : Not inspected. Extremities: 2+ edema. Integumentary: Skin is warm and dry. LABORATORY DATA: Sodium 136, potassium 5.4, CO2 of 19, creatinine 2.6 and albumin is 1.9. ASSESSMENT AND PLAN: 1. Acute kidney injury overlying chronic kidney disease, now requiring dialysis. He had sustained low-efficiency dialysis therapy yesterday. He had modest fluid removal. His potassium remains elevated today and his oxygenation has worsened requiring increased FiO2 on the vent. We will plan to dialyze him on a regular dialysis treatment today. He will likely have to have additional pressor support to maintain any fluid removal. We will go ahead and give him 50 grams of albumin now and daily x 3 days. 2. Electrolytes, acid-base balance. He did have improvement with his potassium yesterday with sustained low-efficiency dialysis. We will dialyze today on a 2 K bath. 3. Yuriy's gangrene, followed by Primary and Surgery. 4. Acute respiratory distress syndrome, followed by Pulmonology. Continues to have a guarded prognosis. Dictated by JORGE Orr for Luis Vick MD cc: MD Hubert Worthington MD [facility]
--- NOTE | 2018-11-21 14:55 | PULMONOLOGY PROGRESS NOTE ---
DATE: 11/21/2018 SUBJECTIVE: The patient is sedated. His oxygen requirements have increased over the last 24 hours. OBJECTIVE: Vital Signs: Maximum temperature in the last 24 hours 100.0 degrees, blood pressure 101/57, heart rate 102, respiratory rate 31, oxygen saturation 96%. HEENT: Pupils are equal and reactive. Oropharynx is clear. Neck: Supple. Chest: Reveals diffuse bilateral crackles. Cardiac exam: S1, S2. Abdomen: Obese and soft with rare bowel sounds. Extremities: Unchanged. LABORATORIES/X-RAYS: Chest x-ray reveals diffuse bilateral infiltrates. Sodium 136, potassium 5.4, chloride 103, bicarbonate 19. BUN 28, creatinine 2.6. Arterial blood gas reveals a pH of 7.35, pCO2 of 38, PO2 of 60. MICROBIOLOGY: Reveals no growth on the sputum and blood cultures are pending. IMPRESSION: This is a 48 year old with Yuriy gangrene, morbid obesity, acute hypoxemic respiratory failure due to acute respiratory distress syndrome, pleural effusions, pneumonia, diabetes mellitus, with acute on chronic renal failure. The patient's oxygen requirements are continuing to increase, requiring along with increasing peak pressures consistent with a diagnosis of acute respiratory distress syndrome. RECOMMENDATIONS: 1. Continue full ventilatory support. He will be continued on a lung protective strategy with decreasing tidal volumes due to increasing peak airway pressures. 2. Continue dialysis per Dr. Vick. 3. Continue antibiotics per Infectious Disease. 4. Continue tube feeds. 5. Prognosis is guarded. He may require tracheostomy next week, but he would need to demonstrate some improvement before this would be tolerated. It seems it will be awhile. TIME SPENT IN CRITICAL CARE: 30+ minutes. cc: MD Hubert Jimenez MD
[2018-11-21] MEDS ORDERED: DOPAMINE 800 MG/D5W 800 MG/500 ML IV.SOLN ONE (16:58)
[2018-11-21] MEDS ORDERED: DOPAMINE 400 MG/D5W 400 MG/500 ML IV.SOLN IV SCH (17:00)
[2018-11-21] MEDS: DOPAMINE 800 MG/D5W 800 MG/500 ML IV.SOLN IV SCH (17:01)
[2018-11-21 17:30] LABS: INR 1.75; PROTIME 21.8 Seconds (11.0-16.0)
[2018-11-21 17:31] LABS: PTT 36.9 Seconds (22.3-41.8)
[2018-11-21 17:50] LABS: ALLEN TEST YES; BLOOD TYPE ARTERIAL; HCO3-(ACT) 18.4 mmoll (20.0-26.0); METHB 0.8 % (0.0-1.5); O2(CT) 13.4 mL/dL (15.0-23.0); PCO2(98.6) 48 mmHg (35-45); PO2(98.6) 54 mmHg (60-100); SAMPLE BLOOD; SAO2 86.4 % (95.0-100.0); SRATE 12 BPM; THB 11.3 g/dL (11.5-17.4); TVOL 500 mL; pH(98.6) 7.22 (7.35-7.45)
[2018-11-21 17:51] LABS: MODALITY VENTILATOR
[2018-11-21] MEDS ORDERED: NS IV PRN (18:45)
[2018-11-21] MEDS ORDERED: ALBUMIN IV PRN (18:45)
[2018-11-21] MEDS ORDERED: ATROPINE SYRINGE ONE (20:04)
[2018-11-21] MEDS: DIFLUCAN 100 MG/NS 100 MG/50 ML IVPB IV SCH (20:46)
[2018-11-21] MEDS ORDERED: ATROPINE SYRINGE IV PRN (21:04)
[2018-11-22] MEDS ORDERED: NS 250 ML ONE (00:44)
[2018-11-22] MEDS: HUMALOG SUBQ SCH ×7 (01:14→23:43)
[2018-11-22] MEDS: DOPAMINE 800 MG/D5W 800 MG/500 ML IV.SOLN IV SCH ×5 (03:19→23:43)
[2018-11-22] MEDS: LEVOPHED 8 MG in D5 1/2 NS 250 ML IV SCH ×2 (03:20→09:27)
[2018-11-22 04:29] LABS: ALLEN TEST YES; BE -8.5 mmoll (-3.0-3.0); BLOOD TYPE ARTERIAL; HCO3-(ACT) 18.3 mmoll (20.0-26.0); METHB 1.3 % (0.0-1.5); O2(CT) 13.3 mL/dL (15.0-23.0); PCO2(98.6) 49 mmHg (35-45); PO2(98.6) 201 mmHg (60-100); SAMPLE BLOOD; SAO2 100.2 % (95.0-100.0); SRATE 12 BPM; THB 9.4 g/dL (11.5-17.4); TVOL 500 mL
[2018-11-22 04:31] LABS: MODALITY VENTILATOR
[2018-11-22 04:55] LABS: ALB/GLOB RATIO 0.9; ALBUMIN 3.2 g/dL (3.5-5.0); CALCIUM 7.9 mg/dL (8.8-10.2); CREATININE 4.1 mg/dL (0.7-1.2); TOTAL BILIRUBIN 4.1 mg/dL (0.20-1.00); TOTAL PROTEIN 6.9 g/dL (6.3-8.3)
[2018-11-22 04:56] LABS: POTASSIUM 6.6 mmol/L (3.5-5.1)
--- NOTE | 2018-11-22 07:36 | Diag Imaging Result Doc PS360 ---
EXAM: CHEST-PORTABLE - 11/22/2018 HISTORY: respiratory failure TECHNIQUE: Portable chest COMPARISON: 11/21/2018 FINDINGS: Endotracheal tube, nasogastric tube, central venous catheter remain in place. The distal end of nasogastric tube is somewhat difficult to visualize due to technical factors but appears to extend into the proximal stomach. Heart size appears normal. There are dense bilateral infiltrates similar to prior. There is no substantial pleural effusion or pneumothorax identified. IMPRESSION: Dense bilateral infiltrates similar to prior. Electronically signed by Sterling Parekh 11/22/2018 7:34 AM
[2018-11-22] MEDS: MERREM 1 GM in NS 50 ML IV SCH ×2 (07:49→20:17)
[2018-11-22] MEDS: ZYVOX 600 MG/D5W 600 MG/300 ML IVPB IV SCH ×2 (07:49→21:16)
[2018-11-22] MEDS: SODIUM CHLORIDE 0.9% INJ SCH (08:18)
[2018-11-22] MEDS: ALBUMIN 25% IV SCH (08:18)
[2018-11-22] MEDS: PROTONIX IV SCH (08:18)
[2018-11-22] MEDS: SODIUM BICARBONATE 8.4% IV PUSH SCH ×4 (08:58→20:17)
--- NOTE | 2018-11-22 09:24 | CARDIOLOGY PROGRESS NOTE ---
DATE: 11/22/2018 REASON FOR FOLLOWUP: Bradycardia. Original consultation made by Dr. Ray on 11/04/2018. SUBJECTIVE: The patient has been on a ventilator for general support, on maximum doses of norepinephrine because of septic shock. The patient is on 100% oxygen and high levels of PEEP. The patient developed episodes of bradycardia intermittently. Dopamine has been suggested. This started happening on 11/21/2018 in the afternoon. Overnight, no significant asystole has happened. The patient remains on maximum support. He is intubated, and he is nonverbal. At times, it appears as if he had agonal breathing. OBJECTIVE: At this time, his blood pressure is 140/77, pulse 105. His vital signs indicate a temperature of 99.4, respirations 20, somewhat labored. HEENT: Orotracheal tube in place. The patient appears to be pale. Extremities are somewhat cool. He is definitely hypoperfusing. Capillary refill is delayed. Breath sounds are symmetrical, diminished diffusely. Heart sounds are regular and rhythmic. No gallop or murmur noted. Abdomen is soft. Bowel sounds diminished. Neurologic: He is really unresponsive, sedated. DIAGNOSTIC DATA: Blood gases today on 11/22/2018 show pH of 7.20, pO2 is 201, pCO2 is 49. His sodium is 134, potassium 6.6, BUN is 51, creatinine 4.1. Albumin is 3.2. Chest x-ray shows dense consolidation of the upper lobes. The official radiology report for today shows dense bilateral infiltrates similar to prior. His telemetry, as I said, indicates sinus rhythm. They did ECG yesterday at 4:53 p.m. that shows sinus bradycardia with rate of 55 beats per minute, no acute ischemic changes. There was one done a little later that showed junctional rhythm with rate of 56 and 53 beats per minute. Apparently that was the reason why Dr. Ray was called in the first place about 2 weeks ago. IMPRESSION: 1. The patient is having episodes of junctional bradycardia. 2. The patient is with severe respiratory failure, acute respiratory distress syndrome type. 3. Significant metabolic acidosis. 4. Hyperkalemia. 5. Renal failure, advanced, on dialysis. 6. Diabetes mellitus. 7. Yuriy's gangrene, status post debridement. He has had several debridements of the perineum and scrotal area. RECOMMENDATIONS: At this point in time, I would suggest to continue supportive measures. The patient, by echocardiography, had normal ejection fraction on 11/05/2018. There is no indication of ischemia on his electrocardiogram. The episodes of junctional bradycardia may relate to severe, profound metabolic disturbance affecting the myocardium and the conduction system. At this point in time, I would let the ecommerce marketing specialist and the metal sander deal with those issues. From a cardiology viewpoint, I really do not have any specific recommendation other than try to avoid any drug that could affect the AV node or the sinus node. The patient, for all practical purposes, appears to be moribund. The family needs to be informed about possible demise in the next short time. cc: MD Hubert Case MD
[2018-11-22 09:25] LABS: BASO# 0.08 X1000 (0.0-0.2); BASO% 0.3 % (0.0-0.8); EOS# 0.06 X1000 (0.0-0.7); EOS% 0.2 % (0.0-10.0); HEMATOCRIT 30.9 % (42.0-52.0); HEMOGLOBIN 9.2 g/dL (14.0-18.0); IMM GRAN% 1.3 % (0.0-0.5); LYMPH# 2.22 X1000 (1.2-3.4); MCHC 29.8 g/dL (33-37); MCV 93.9 FL (81-99); MONO# 3.28 X1000 (0.11-0.59); MONO% 10.4 % (1.7-9.3); MPV 11.7 FL (7.4-10.4); NEUT# 25.55 X1000 (1.4-6.5); NEUT% 80.8 % (42.2-75.2); PLT 324 X1000 (130-400); RBC 3.29 XMIL (4.7-6.1); RDW 15.9 % (11.5-14.5); WBC 31.59 X1000 (4.8-10.8)
[2018-11-22 09:30] LABS: INR 1.78; PROTIME 22.1 Seconds (11.0-16.0)
[2018-11-22 09:34] LABS: BANDS 20 % (0-1); LYMPHS 6 % (21-51); MONO 12 % (1-9); SEGS 60 % (42-75)
[2018-11-22 09:35] LABS: BURR CELLS OCCASIONAL; HYPOCHROM OCCASIONAL; LARGE PLATELETS OCCASIONAL; POIKILOCYTOSIS OCCASIONAL; SCHISTOCYTES OCCASIONAL
[2018-11-22] MEDS ORDERED: HUMULIN R IV ONE (09:49)
[2018-11-22] MEDS ORDERED: D50W SYRINGE IV ONE (09:50)
[2018-11-22] MEDS ORDERED: KAYEXALATE PO ONE (09:51)
[2018-11-22] MEDS ORDERED: CALCIUM GLUCONATE 1 GM in NS 50 ML IV ONE (09:51)
--- NOTE | 2018-11-22 11:03 | PROGRESS NOTE ---
DATE: 11/22/2018 SUBJECTIVE: Mr. Blakely is not doing well. Patient is still on ventilator. At times he does have pinkish, bloody aspirate from endotracheal tube. Chest x-ray showed bilateral infiltrates. The patient is not communicating. His oxygen requirement was high, though today on blood gas, PO2 is better. The patient is on Levophed and dopamine. Yesterday, the patient had episode of bradyarrhythmia. pt.is on dopamine and norepinephrine. The patient is on broad -spectrum antibiotics. OBJECTIVE: Vital Signs: Noted. Neck: Supple. No JVD. Lungs: Bilateral air entry in upper lung field. Bilateral inspiratory crepitations. CVS: S1 and S2 heard. Tachycardia. Abdomen: Soft, globular. Bowel sounds present. DEPLOYMENT SPECIALIST: Patient is on vent, uncooperative for detailed exam. LABORATORY DATA DONE TODAY: The patient had leukocytosis with significant left shift. Electrolytes, patient had hyperkalemia, chronic kidney disease. The patient is on hemodialysis. Blood gas: PH 7.2, pCO2 49, PO2 was 201, which did show improvement. IMAGING: Chest x-ray did show dense bilateral infiltrates. His ProTime was prolonged. The patient is receiving fresh frozen plasma. OVERALL PROGNOSIS: Fair to guarded. Dr. Newman and the nurse talked to family or brother who is in [place] and he requested Do Not Resuscitate 1. I had talked to Dr. Newman, also Dr. Angulo and we all think patient is critically ill. Prognosis is very poor. We are not going to stop any treatment, but if he had cardiac arrest as per family's request, we are not going to run a Code. I personally think that is a reasonable approach because overall prognosis is poor. I did discuss overall prognosis with his brother yesterday. cc: Hubert Swartz MD [facility]
--- NOTE | 2018-11-22 11:26 | NEPHROLOGY PROGRESS NOTE ---
DATE: 11/22/2018 SUBJECTIVE: The patient had multiple episodes within the last 24 hours of significant bradycardia. We were unable to dialyze him yesterday secondary to worsening hypotension and bradycardia, worsening clinical status. OBJECTIVE: Vital Signs: Temperature 99 degrees, pulse 105, respiratory rate 20, blood pressure 136/75. This is with maximum dopamine and Levophed on board. Intake and output: Intake 3.8 L. Output 365 mL. Physical Examination: General: This is an acutely ill-appearing, critically ill patient currently mechanically ventilated. HEENT: Normocephalic, atraumatic. He is orally intubated. Oral mucosa is dry. Neck: Thick. Unable to determine JVD. Cardiovascular: Tachycardic on the monitor. Pulmonary: He has got significantly decreased breath sounds bilaterally. Rhonchi noted. No wheeze. Mechanically ventilated. Abdomen: Obese, soft. Hypoactive bowel sounds. He has a bowel management system in place. : He has a dressing in place to the groin. Extremities: There is 2+ edema. His feet are cool. No cyanosis. Integumentary: Skin is pale, cool, and dry. Lab Data: Sodium 134, potassium 6.6, CO2 of 19, creatinine 4.1, calcium 7.9, albumin 3.2. Chest x-ray with dense consolidation of upper lobes and bilateral infiltrates with no real change. ASSESSMENT AND PLAN: 1. Acute on chronic kidney disease now requiring dialysis. We failed at an attempt to dialyze the patient yesterday secondary to his declining overall status. He had worsening hypotension requiring additional pressor support and then episodes of junctional bradycardia with a rate down into the 40s at times. We did a repeat potassium yesterday and he had no significant change with his potassium during the day. We held dialysis secondary to his worsening clinical status. We will plan to try again tomorrow if family desires. 2. Acute respiratory distress syndrome, respiratory failure. The family has made the patient a Do Not Resuscitate level 1. Continue to assist with supportive care from a nephrology standpoint. We will discuss wishes of continued aggressive treatment with family when available. 3. Hyperkalemia. The patient still has bowel movements. He continues with a bowel management system in place. We will order Kayexalate along with insulin, D50, and calcium gluconate. He already has a bicarbonate order per pulmonology. We will treat his potassium medically today and recheck his labs this afternoon. 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 Dictated by JORGE Orr for Luis Vick MD cc: MD Hubert Worthington MD
[2018-11-22 15:49] LABS: CALCIUM 7.8 mg/dL (8.8-10.2); CREATININE 4.8 mg/dL (0.7-1.2)
[2018-11-22 15:54] LABS: POTASSIUM 6.1 mmol/L (3.5-5.1)
--- NOTE | 2018-11-22 18:44 | PULMONOLOGY PROGRESS NOTE ---
DATE: 11/22/2018 SUBJECTIVE: The patient has had a labile course over the last 24 hours. He has had periods of significant desaturation, episodes of severe bradycardia and hypotension. He is now on maximum ventilatory support. OBJECTIVE: Heart rate 102, respiratory rate 22, blood pressure 122/63, oxygen saturation 100%. Maximum temperature in the last 24 hours 100.1 degrees.HEENT: Pupils are equal and responsive. Oropharynx appears clear. Neck: Is supple. Chest: Reveals coarse rhonchi bilaterally. Cardiac: S1-S2. Abdomen: Obese and soft. Extremities: Reveal 1+ peripheral edema. LABORATORIES: INR remains elevated at 1.78. White blood count is increased at 31,000, hemoglobin 9.2, platelet count 324,000. Arterial blood gas reveals worsening acidosis with a pH 7.20, pCO2 of 49, and a PO2 of 201. Sodium 134, potassium 6.6, chloride 98, bicarbonate 19, anion gap 17, BUN 51, creatinine 4.1, glucose 272, bilirubin has increased to 4.10. Chest x-ray reveals diffuse bilateral infiltrates with areas of consolidation. IMPRESSION: A 48-year-old with morbid obesity, diabetes mellitus, who presented with Yuriy gangrene. The patient now has acute respiratory distress syndrome, acute hypoxemic respiratory failure, acute renal failure, acute liver failure, with periods of bradycardia likely related to his underlying hypoxemia and acidosis. He remains critically ill and is at risk for dying. I did speak with his brother explaining his recent worsening status. He is aware that he is critically ill and may not survive. He has requested to not pursue chest compressions or defibrillations if he were to have a cardiac arrest. RECOMMENDATIONS: 1. Continue full ventilatory support. We will continue lung protective strategy. His tidal volumes were decreased again today to decrease his peak airway pressures. 2. Continue antibiotics. 3. Additional fresh frozen plasma for coagulopathy. 4. Tube feeds as tolerated. 5. Cardiac monitoring per Cardiology service. 6. His prognosis remains extremely poor. End of life discussions have been held with the family and they are aware he may not survive. TIME SPENT IN CRITICAL CARE: 30+ minutes. cc: MD Hubert Jimenez MD
[2018-11-22] MEDS: DIFLUCAN 100 MG/NS 100 MG/50 ML IVPB IV SCH (20:17)
[2018-11-22] MEDS: TYLENOL PO PRN (21:12)
[2018-11-23] MEDS: HUMALOG SUBQ SCH ×3 (04:07→12:08)
[2018-11-23 04:59] LABS: INR 1.8; PROTIME 22.2 Seconds (11.0-16.0)
[2018-11-23 05:00] LABS: ALLEN TEST YES; BE -6.4 mmoll (-3.0-3.0); BLOOD TYPE ARTERIAL; O2(CT) 9.6 mL/dL (15.0-23.0); O2HB 97.2 % (95.0-99.0); PO2(98.6) 181 mmHg (60-100); SAMPLE BLOOD; SAO2 99.9 % (95.0-100.0); SRATE 22 BPM; THB 6.7 g/dL (11.5-17.4); TVOL 450 mL
[2018-11-23 05:02] LABS: MODALITY VENTILATOR; PCO2(98.6) 56 mmHg (35-45); pH(98.6) 7.19 (7.35-7.45)
[2018-11-23] MEDS: DOPAMINE 800 MG/D5W 800 MG/500 ML IV.SOLN IV SCH ×2 (06:12→12:05)
[2018-11-23 06:27] LABS: ALB/GLOB RATIO 0.8; ALBUMIN 2.8 g/dL (3.5-5.0); CALCIUM 8.1 mg/dL (8.8-10.2); CREATININE 5.4 mg/dL (0.7-1.2); TOTAL BILIRUBIN 4.8 mg/dL (0.20-1.00); TOTAL PROTEIN 6.1 g/dL (6.3-8.3)
[2018-11-23 06:50] LABS: POTASSIUM 6.4 mmol/L (3.5-5.1)
--- NOTE | 2018-11-23 06:59 | Diag Imaging Result Doc PS360 ---
EXAM: CHEST-PORTABLE HISTORY: respiratory failure TECHNIQUE: Portable chest single view COMPARISON: 11/22/2018 FINDINGS: No change in the endotracheal tube, the left subclavian line, or the nasogastric tube. There are dense bilateral infiltrates. These are more pronounced than on the prior study. No cardiomegaly. No pleural effusions identified. IMPRESSION: Mild interval worsening. Electronically signed by Karl Baer 11/23/2018 6:56 AM
[2018-11-23] MEDS ORDERED: SODIUM BICARBONATE 8.4% IV PUSH ONE (07:14)
[2018-11-23] MEDS ORDERED: HEPARIN IV PRN (07:16)
[2018-11-23] MEDS ORDERED: NS 2,000 ML MISC PRN (07:16)
[2018-11-23] MEDS ORDERED: TIGHT: 0.2 ML/HR FOR DIALYSIS MISC PRN (07:16)
--- NOTE | 2018-11-23 07:36 | PROGRESS NOTE ---
DATE: 11/23/2018 SUBJECTIVE: Mr. Blakely is doing fair. The patient spiked a fever last night. It was about 103. We did give him Tylenol and then cold compresses. His fever is doing some better. Patient is on mechanical ventilator. Patient did have one episode of bradyarrhythmia. Chest x-ray done today did show slight worsening but clinically, his lungs sounds better. Patient is not communicating. I had a discussion with the patient's brother, who lives here, yesterday. I discussed about his clinical condition and prognosis. He understood. He is also in agreement for Do Not Resuscitate 1. OBJECTIVE: Vital Signs: Noted. Neck: Supple. No JVD. Lungs: Bilateral air entry in the upper lung guillermo. Cardiovascular: S1 and S2 heard. Abdomen: Soft, globular. Bowel sounds hypoactive. CLERK [employer]: The patient is on the ventilator and sedated. Laboratory Studies: Blood gas did reveal a pH of 7.19, pCO2 56, PO2 181. His sodium is 131, potassium 6.4, CO2 was 19. AST was 135, ALT was 67. ASSESSMENT: The patient does have multiple problems includin. Bilateral pulmonary infiltrates, suggestive of pneumonia. Possibility of pulmonary hemorrhage cannot be ruled out. 2. Kidney failure, on dialysis. 3. Hyperkalemia. 4. Acidosis. I think it is both respiratory and metabolic. 5. The patient does have Yuriy's gangrene. According to surgeon, it is doing better. PLAN: The patient is on broad-spectrum antibiotics, ventilatory support. Overall prognosis guarded. Family is aware of the prognosis. Tyre Fitter is following the patient with us. cc: Hubert Swartz MD
[2018-11-23] MEDS ORDERED: SODIUM BICARBONATE 8.4% IV PUSH SCH (09:00)
[2018-11-23] MEDS ORDERED: LEVAQUIN 250 MG/D5W 250 MG/50 ML IVPB IV SCH (09:15)
--- NOTE | 2018-11-23 09:38 | INFECTIOUS DISEASE PROGRESS NO ---
DATE: 11/23/2018 SUBJECTIVE: The patient is status post multiple debridements of Yuriy gangrene. Just now, he spiked a temperature to 103 degrees, and his white count is increased to 31,590. MEDICATIONS: This is the third day of treatment with Zyvox and meropenem. OBJECTIVE: Vital Signs: Temperature is a 103 degrees, pulse 89, respirations 34, blood pressure 108/58. General: This is a morbidly obese, ill-appearing middle-aged male. He is intubated and sedated. Head/eyes/ears/nose/throat: There is no drainage from the nose or ears. Orotracheal tube is in place. Neck: No stiffness. Lungs: Clear to auscultation. Cardiovascular: Regular heart rate. Abdomen: Soft and nontender. IV sites none are erythematous. Pelvic: I examine the patient's scrotum and perineum, where the wounds have been closed and to me , the wounds look good. There is a little bit of swelling and erythema, but I doubt these wounds are the source of the patient's fever and leukocytosis. Neurologic: Patient is obtunded. He did not make any moves with his extremities, while I was examining him and after when I asked him to move his arm and legs. There is no tremor. LAB AND X-RAY: Chest x-ray shows worsening of the patient's bilateral infiltrates. Blood gases show a pH of 7.19, a pO2 of 181, pCO2 of 56, creatinine is 5.4. GFR is 11. Bilirubin is 4.8. Blood and sputum cultures are negative. ASSESSMENT AND PLAN: Patient appears to have pneumonia. He is status post multiple debridements for Yuriy gangrene. My plan is to continue meropenem and Zyvox since it is only day 3, and I have repeated the patient's blood cultures. Dr. Newman has already ordered a repeat sputum culture. Also I started IV Levaquin. COMORBIDITIES: The patient is obese. He also has diabetes mellitus, chronic kidney disease, and he is on hemodialysis. cc: MD Hubert Cobian MD MTDD
[2018-11-23] MEDS: MERREM 1 GM in NS 50 ML IV SCH (10:02)
[2018-11-23] MEDS: ALBUMIN 25% IV SCH (10:04)
[2018-11-23] MEDS: PROTONIX IV SCH (10:05)
[2018-11-23] MEDS ORDERED: ALBUMIN 25% ONE (10:12)
[2018-11-23] MEDS: SODIUM CHLORIDE 0.9% INJ SCH (10:14)
[2018-11-23] MEDS ORDERED: ALBUMIN 25% IV ONE (10:15)
[2018-11-23] MEDS: ZYVOX 600 MG/D5W 600 MG/300 ML IVPB IV SCH (10:16)
--- NOTE | 2018-11-23 11:47 | EKG Report ---
Test Performed on : 11/21/2018 4:46:46 PM Test Reason : ICU. No order in [place] Blood Pressure : / mmHG Vent. Rate : 111 BPM Atrial Rate : 111 BPM P-R Int : 164 ms QRS Dur : 086 ms QT Int : 300 ms P-R-T Axes : 035 069 038 degrees QTc Int : 408 ms Sinus tachycardia. Otherwise normal ECG When compared with ECG of 05-NOV-2018 07:10, Vent. rate has increased BY 53 BPM Incomplete left bundle branch block is no longer present Confirmed by Micheal WASHINGTON, Jaydon Thurman ([id number]) on 11/23/2018 1:17:38 PM
--- NOTE | 2018-11-23 11:47 | EKG Report ---
Test Performed on : 11/21/2018 4:56:41 PM Test Reason : ICU. No order in [place] Blood Pressure : / mmHG Vent. Rate : 056 BPM Atrial Rate : 080 BPM P-R Int : 000 ms QRS Dur : 090 ms QT Int : 356 ms P-R-T Axes : 000 060 061 degrees QTc Int : 343 ms Junctional rhythm. Abnormal ECG When compared with ECG of 21-NOV-2018 16:53, (Unconfirmed) No significant change was found Confirmed by Micheal WASHINGTON, Jaydon Thurman ([id number]) on 11/23/2018 1:18:03 PM
--- NOTE | 2018-11-23 12:39 | NEPHROLOGY PROGRESS NOTE ---
DATE: 11/23/2018 TIME SEEN: 0730. SUBJECTIVE: Mr. Blakely opens his eyes randomly. He remains on ventilatory support with pressor support. OBJECTIVE: His most recent vital signs, temperature 103.7, blood pressure 112/ 60, heart rate 70, respirations are 22. He is on 100% FiO2. His last recorded saturation is 100% . He has had 3688 in. He has had 455 out, with 400 mL of fecal material. LABORATORY DATA: Sodium 131, potassium 6.4, chloride 93, CO2 of 19, BUN 71, creatinine 5.4, glucose 225, anion gap 19, calcium 8.1, albumin 2.8. White count 31.59, hemoglobin 9.2, hematocrit 30.9 with a platelet count of 324 from the 27th. ABGs: pH 7.19, CO2 of 56, pO2 of 181, bicarb 20 on 100% with a lactate of 1.2. ProTime 22.2 with an INR of 1.8. PHYSICAL EXAMINATION: General: This is a 48-year-old, white male. He is currently resting quietly in bed. He remains critically ill on ventilatory support. Skin: Warm and dry. HEENT: Normocephalic, atraumatic. Oral ET tube remains in place. Neck: Supple. Trachea midline. Unable to determine JVD. Cardiovascular: Regular rate and rhythm. He is tachycardic at times. Heart rate has just dropped down into the 70 to 90 range during exam. Abdomen: Soft, nontender. Positive bowel sounds. Pulmonary: Coarse breath sounds bilaterally. Equal excursion on 100% FiO2. Genitourinary: Not inspected. Fecal tube remains in place. Dressing is dry and intact. Extremities: Continues with 2+ lower extremity edema. Integumentary: Skin is warm and dry. No rashes or lesions noted. ASSESSMENT AND PLAN: 1. Acute kidney injury overlying chronic kidney disease. The patient is requiring dialysis. We will place him on a 2K bath, dialyze him for 3.5 hours. We will attempt to pull 3 to 4 L of ultrafiltration as tolerated. 2. Electrolytes: Patient has hyperkalemia with hyponatremia, again with correction on dialysis secondary to #1. 3. Acid-base balance. Again, with correction on dialysis. 4. Anemia. This remains low but stable. 5. Yuriy's gangrene. The patient remains in septic shock. He remains on pressor support. Dopamine is maxed out. He remains on Levophed. 6. Acute respiratory distress syndrome. Followed by Pulmonology. I would like to thank you for allowing us to follow with this patient. Dictated by JORGE Hirsch for Luis Vick MD cc: JORGE Hirsch MD Bharat K. Vakharia, MD [facility]
--- NOTE | 2018-11-23 13:18 | PULMONOLOGY PROGRESS NOTE ---
DATE: 11/23/2018 SUBJECTIVE: The patient is sedated and poorly responsive. He continues to have periods of hypoxemia/desaturation and bradycardia. OBJECTIVE: Vitals: Current temperature 101 degrees. Blood pressure 115/55, heart rate 96, respiratory rate 22, oxygen saturation 100%. HEENT: Pupils are equal and reactive. Oropharynx is clear. Neck: Supple. Chest: Reveals coarse rhonchi bilaterally. Cardiac exam: S1. S2. Regular rate. Abdomen: Obese and soft. Extremities: Reveal 1+ peripheral edema. LABORATORIES/IMAGING: Chest x-ray reveals mild increased infiltrates compared to 11/22/2018. White blood count not obtained today. Chemistry: Sodium 131, potassium 5.4, chloride 93, bicarbonate 19, anion gap 19, BUN 71, creatinine 5.4, bilirubin has increased to 4.8. Arterial blood gas: PH 7.19, pCO2 of 56, PO2 of 181. IMPRESSION: A 48-year-old with morbid obesity, diabetes mellitus, who presented with Yuriy's gangrene. He now has acute respiratory distress syndrome with acute hypoxemic respiratory failure, acute renal failure, acute liver failure, with periods of bradycardia leading to hypotension and hypoxemia. He is slow to recover from these events. He has not had any improvement last 24 hours. He remains at risk for dying. One brother is at the bedside and is aware that he may not survive. RECOMMENDATIONS: 1. Additional sodium bicarbonate today for severe acidosis. 2. Continue full ventilatory support for hypoxemic and hypercapnic respiratory failure. 3. Continue antibiotics per Infectious Disease. 4. Additional fresh frozen plasma for ongoing coagulopathy and liver failure. 5. Prognosis remains poor. Family is aware that he risk for dying during this hospitalization due to his overwhelming illness, age, and diabetes. They have elected to allow him to have a natural if he has a cardiac arrest. TIME SPENT IN CRITICAL CARE: 30+ minutes. cc: MD Hubert Jimenez MD
[2018-11-23 14:37] VITALS: BP 115/23
--- NOTE | 2018-11-24 05:54 | DISCHARGE SUMMARY ---
ADMISSION DATE: 11/03/2018 DISCHARGE DATE: 11/23/2018 FINAL DISCHARGE DIAGNOSES: 1. Acute respiratory distress syndrome. 2. Acute hypoxemic respiratory failure. 3. Bronchopneumonia. 4. Acute on chronic renal failure. 5. Bradyarrhythmia. 6. Uncontrolled diabetes mellitus. 7. Hypotension. 8. Hypoxemia. 9. Yuriy's gangrene. 10. Morbid obesity. HOSPITAL COURSE: Mr. Blakely is a 48-year-old white gentleman, morbidly obese, admitted with fever, some chills, evidence of Yuriy's gangrene. The patient had uncontrolled diabetes, hypertension, chronic kidney disease. The patient was noncompliant. He was evaluated in the office and admitted for further care. The patient initially had Urology consult done and surgical consult. The patient developed significant bradycardia and hypotension after surgery requiring mechanical ventilation and pressure support. The patient was transferred to ICU from the recovery room. The patient was given IV antibiotics and pressure support. The patient had a Cardiology [employer] consult, Infectious Disease Specialist Consult. Surgeon and urologist were on the board. Nephrology was also on the board because of her chronic kidney disease. Hospital course was complicated by acute on chronic kidney disease. The patient had an episode of hypoxemia and bradyarrhythmia. The patient received blood transfusion. He received fresh frozen plasma. Initially the patient was doing some better, but the last 3-4 days his clinical condition continued to deteriorate. The patient had episode of increasing oxygen requirement, bilateral pulmonary infiltrate, more shortness of breath, and bloody aspirate in endotracheal tube. The patient required multiple debridement of his Yuriy's gangrene and suturing. The patient also received hemodialysis. His clinical condition continued to deteriorate. The last 2 days we talked to the family, overall prognosis was poor. Family requested DNR, and the patient continued to deteriorate and the patient today, which is 11/23/2018 at 12:20 p.m. DISCHARGE LABORATORY DATA: WBC count is 31.59, hemoglobin 9.2, hematocrit 30.9, platelet count 324,000. PT/INR 1.8. Blood gas: PH 7.19, pCO2 of 56, PO2 was 181. Electrolytes: Potassium 6.4, sodium 131, BUN 71, creatinine 5.4, AST 135, ALT was 67, total bilirubin was 4.8. The patient's chest x-ray revealed worsening bilateral infiltrates. Scrotal wound grew bacteroid. cc: Hubert Swartz MD
== END 2018-11-23 12:16 | disposition expired | DRG 853 ==
LOC: ED 15:03 → 3S 18:38 → ICU 11-04 12:10
PROVIDERS: ADMIT Internal Medicine; ATTEND Internal Medicine
CPT/HCPCS: 36430; 71010; 71045; 74019; 74020; 74176; 76000; 76870; 77001; 80048; 80053; 80069; 80074; 81001; 82150; 82550; 82553; 82570; 82805; 82948; 83605; 83690; 83735; 84100; 84132; 84145; 84156; 84300; 84484; 85014; 85018; 85025; 85027; 85610; 85730; 86850; 86900; 86901; 86920; 87040; 87070; 87075; 87076; 87077; 87088; 87186; 87205; 87324; 88300; 88304; 89055; 89220; 93005; 93010; 93306; 94002; 94003; 94640; 94761; 94762; 99285; A9270; C1725; C1750; C8929; C9113; J0131; J0171; J0330; J0461; J0610; J0696; J0712; J0878; J1265; J1450; J1644; J1650; J1815; J1956; J2020; J2185; J2250; J2270; J2543; J2765; J3010; J7030; J7050; J7070; P9016; P9017; P9047; Q9957; Q9967; S0028; S0030; S0164; XXXXX